=== PATIENT | male | born 1960 | race Caucasian/White ===

== ENCOUNTER 2020-03-11 06:08 | Outpatient (REF) | payer OTHER, SELFPAY ==
[2020-03-11 11:14] LABS: MANUAL DIFF FLAG NO
[2020-03-11 11:22] LABS: Basophils Percent Auto 0.6 % (0-2); Eosinophils Absolute Auto 0.1 X10*3/uL (0.0-0.4); Eosinophils Percent Auto 2.1 % (0-4); Hematocrit 42.2 % (42-52); Hemoglobin 14.4 g/dl (14.0-18.0); Imm Gran Abs Auto 0.02 X10*3/uL (0.00-0.03); Imm Gran Pct Auto 0.4 % (0.0-0.4); Lymphocytes Absolute Auto 1.2 X10*3/uL (1.2-4.9); Lymphocytes Percent Auto 23.3 % (20-40); Mean Corpuscular HGB Conc 34.1 g/dl (31.0-36.0); Mean Corpuscular Hemoglobin 31.4 pg (27.0-33.0); Mean Corpuscular Volume 91.9 fL (80-98); Mean Platelet Volume 9.7 fL (9.4-12.4); Monocytes Absolute Auto 0.7 X10*3/uL (0.1-1.2); Monocytes Percent Auto 13.5 % (2-11); Neutrophils Absolute Auto 3.2 X10*3/uL (2.0-8.3); Neutrophils Percent Auto 60.1 % (45-73); Platelet Count 282 X10*3/uL (160-400); Red Blood Count 4.59 X10*6/uL (4.60-5.80); Red Cell Distribution Width 13.1 % (11.0-16.0); White Blood Count 5.3 X10*3/uL (4.8-10.8)
[2020-03-11 11:43] LABS: Alanine Aminotransferase 20 U/L (0-40); Albumin Level 4.3 g/dL (3.5-5.0); Alkaline Phosphatase 57 U/L (39-117); Anion Gap 12 (12-20); Aspartate Amino Transferase 27 U/L (5-37); Bilirubin Total 0.4 mg/dL (0.0-1.0); Blood Urea Nitrogen 14 mg/dL (9-16); Calcium 9.6 mg/dL (8.4-10.2); Carbon Dioxide 30 mmol/L (22-29); Chloride 97 mmol/L (96-108); Cholesterol 178 mg/dL; Estimated Glomerular Filt Rate > 60; Glucose Fasting 106 mg/dL (60-99); HDL Cholesterol 69 mg/dL; LDL Cholesterol Calculated 98 mg/dl; Potassium 4.2 mmol/l (3.3-5.1); Sodium 135 mmol/L (135-145); Total Protein 6.8 g/dL (6.5-8.0); Triglycerides 58 mg/dL
[2020-03-11 11:49] LABS: Glucose Urine UA NEG (NEG); Leukocyte Esterase Urine NEG (NEG); Nitrite Urine NEG (NEG); PH 7.5 (5.0-8.0); Specific Gravity - Urine 1.015 (1.005-1.025); Urine Blood 1+ (NEG); Urine Ketones NEG (NEG); Urine Protein 1+ MG/DL (NEG-TRACE)
[2020-03-11 11:51] LABS: TSH reflex Free T4 0.81 mIU/mL (0.32-4.0)
[2020-03-11 11:53] LABS: Appearance Urine CLEAR; Color Urine YELLOW
[2020-03-11 12:16] LABS: WBC Urine 0 /HPF (0-4)
== END 2020-03-11 06:09 | disposition home or self-care (01) ==
LOC: HO.HMGCLDS 06:08
PROVIDERS: PCP Internal Medicine; Visit Provider Internal Medicine
DX: E78.00 Pure hypercholesterolemia, unspecified (principal); I10 Essential (primary) hypertension; I35.0 Nonrheumatic aortic (valve) stenosis; K21.9 Gastro-esophageal reflux disease without esophagitis; I48.91 Unspecified atrial fibrillation; E66.3 Overweight
CPT/HCPCS: 36415; 80053; 80061; 81001; 84443; 85025

== ENCOUNTER 2020-07-31 06:28 | Outpatient (REF) | payer OTHER, SELFPAY ==
[2020-07-31 11:08] LABS: MANUAL DIFF FLAG NO
[2020-07-31 11:28] LABS: Basophils Percent Auto 0.4 % (0-2); Eosinophils Absolute Auto 0.1 X10*3/uL (0.0-0.4); Eosinophils Percent Auto 1.6 % (0-4); Hematocrit 43.1 % (42-52); Hemoglobin 14.6 g/dl (14.0-18.0); Imm Gran Abs Auto 0.01 X10*3/uL (0.00-0.03); Imm Gran Pct Auto 0.2 % (0.0-0.4); Lymphocytes Absolute Auto 1.2 X10*3/uL (1.2-4.9); Lymphocytes Percent Auto 22.6 % (20-40); Mean Corpuscular HGB Conc 33.9 g/dl (31.0-36.0); Mean Corpuscular Hemoglobin 31.3 pg (27.0-33.0); Mean Corpuscular Volume 92.3 fL (80-98); Mean Platelet Volume 9.9 fL (9.4-12.4); Monocytes Absolute Auto 0.6 X10*3/uL (0.1-1.2); Monocytes Percent Auto 12.6 % (2-11); Neutrophils Absolute Auto 3.2 X10*3/uL (2.0-8.3); Neutrophils Percent Auto 62.6 % (45-73); Platelet Count 280 X10*3/uL (160-400); Red Blood Count 4.67 X10*6/uL (4.60-5.80); White Blood Count 5.1 X10*3/uL (4.8-10.8)
[2020-07-31 11:34] LABS: Glucose Urine UA NEG (NEG); Leukocyte Esterase Urine NEG (NEG); Nitrite Urine NEG (NEG); PH 7.5 (5.0-8.0); Urine Blood 1+ (NEG); Urine Ketones NEG (NEG); Urine Protein TRACE MG/DL (NEG-TRACE)
[2020-07-31 11:38] LABS: Appearance Urine CLEAR; Color Urine YELLOW
[2020-07-31 11:48] LABS: Alanine Aminotransferase 16 U/L (0-40); Albumin Level 4.4 g/dL (3.5-5.0); Alkaline Phosphatase 53 U/L (39-117); Anion Gap 11 (12-20); Aspartate Amino Transferase 23 U/L (5-37); Bilirubin Total 0.6 mg/dL (0.0-1.0); Blood Urea Nitrogen 14 mg/dL (9-16); Calcium 9.1 mg/dL (8.4-10.2); Carbon Dioxide 30 mmol/L (22-29); Chloride 94 mmol/L (96-108); Cholesterol 177 mg/dL; Estimated Glomerular Filt Rate > 60; Glucose Fasting 108 mg/dL (60-99); HDL Cholesterol 71 mg/dL; LDL Cholesterol Calculated 96 mg/dl; Potassium 4.8 mmol/L (3.3-5.1); Sodium 130 mmol/L (135-145); Total Protein 7.1 g/dL (6.5-8.0); Triglycerides 54 mg/dL
[2020-07-31 11:53] LABS: RBC Urine 0-2 /HPF (0); Squamous Epithelial Cell Urine 1+ /LPF; WBC Urine 0 /HPF (0-4)
[2020-07-31 12:43] LABS: Erythrocyte Sedimentation Rate 2 MM/HR (0-15)
== END 2020-07-31 06:29 | disposition home or self-care (01) ==
LOC: HO.HMGCLDS 06:28
PROVIDERS: PCP Internal Medicine; Visit Provider Internal Medicine Cardiovascular Disease
DX: I10 Essential (primary) hypertension (principal); K21.9 Gastro-esophageal reflux disease without esophagitis; E78.00 Pure hypercholesterolemia, unspecified; I48.91 Unspecified atrial fibrillation; M51.16 Intervertebral disc disorders with radiculopathy, lumbar region; E66.3 Overweight
CPT/HCPCS: 36415; 80053; 80061; 81001; 84443; 85025; 85652

== ENCOUNTER 2020-12-16 06:00 | Outpatient (REF) | payer OTHER, SELFPAY ==
[2020-12-16 11:04] LABS: MANUAL DIFF FLAG NO
[2020-12-16 11:19] LABS: Basophils Percent Auto 0.3 % (0-2); Eosinophils Absolute Auto 0.1 X10*3/uL (0.0-0.4); Eosinophils Percent Auto 1.7 % (0-4); Hematocrit 43.7 % (42-52); Hemoglobin 14.7 g/dl (14.0-18.0); Imm Gran Abs Auto 0.04 X10*3/uL (0.00-0.03); Imm Gran Pct Auto 0.6 % (0.0-0.4); Lymphocytes Absolute Auto 1.8 X10*3/uL (1.2-4.9); Lymphocytes Percent Auto 25.4 % (20-40); Mean Corpuscular HGB Conc 33.6 g/dl (31.0-36.0); Mean Corpuscular Hemoglobin 31.7 pg (27.0-33.0); Mean Corpuscular Volume 94.2 fL (80-98); Mean Platelet Volume 9.4 fL (9.4-12.4); Monocytes Absolute Auto 0.7 X10*3/uL (0.1-1.2); Monocytes Percent Auto 10.5 % (2-11); Neutrophils Absolute Auto 4.4 X10*3/uL (2.0-8.3); Neutrophils Percent Auto 61.5 % (45-73); Platelet Count 301 X10*3/uL (160-400); Red Blood Count 4.64 X10*6/uL (4.60-5.80); Red Cell Distribution Width 12.5 % (11.0-16.0); White Blood Count 7.1 X10*3/uL (4.8-10.8)
[2020-12-16 11:24] LABS: Estimated Average Glucose 108 mg/dL; Hemoglobin A1c % 5.4 %
[2020-12-16 11:38] LABS: Glucose Urine UA NEG (NEG); Leukocyte Esterase Urine NEG (NEG); Nitrite Urine NEG (NEG); Specific Gravity - Urine <= 1.005 (1.005-1.025); Urine Blood 2+ (NEG); Urine Ketones NEG (NEG); Urine Protein NEG (NEG-TRACE)
[2020-12-16 11:47] LABS: Alanine Aminotransferase 15 U/L (0-40); Albumin Level 4.4 g/dL (3.5-5.0); Alkaline Phosphatase 51 U/L (39-117); Anion Gap 11 (12-20); Aspartate Amino Transferase 22 U/L (5-37); Bilirubin Total 0.6 mg/dL (0.0-1.0); Blood Urea Nitrogen 17 mg/dL (9-16); Calcium 9.4 mg/dL (8.4-10.2); Carbon Dioxide 29 mmol/L (22-29); Chloride 97 mmol/L (96-108); Cholesterol 202 mg/dL; Estimated Glomerular Filt Rate > 60; Glucose Fasting 114 mg/dL (60-99); HDL Cholesterol 75 mg/dL; LDL Cholesterol Calculated 112 mg/dl; Potassium 4.4 mmol/L (3.3-5.1); Sodium 133 mmol/L (135-145); Triglycerides 79 mg/dL
[2020-12-16 12:09] LABS: Prostate Specific Antigen 2.62 ng/mL (<0.05-4.0)
[2020-12-16 12:10] LABS: TSH reflex Free T4 0.72 uIU/mL (0.32-4.0)
[2020-12-16 12:16] LABS: Appearance Urine HAZY; Color Urine YELLOW
[2020-12-16 13:04] LABS: WBC Urine 0 /HPF (0-4)
== END 2020-12-16 06:01 | disposition home or self-care (01) ==
LOC: HO.HMGCLDS 06:00
PROVIDERS: PCP Internal Medicine; Visit Provider Urology
DX: Z12.5 Encounter for screening for malignant neoplasm of prostate (principal); R97.20 Elevated prostate specific antigen [PSA]; E78.00 Pure hypercholesterolemia, unspecified; I10 Essential (primary) hypertension; K21.9 Gastro-esophageal reflux disease without esophagitis; R73.01 Impaired fasting glucose
CPT/HCPCS: 36415; 80053; 80061; 81001; 81003; 83036; 84153; 84443; 85025

== ENCOUNTER 2021-05-12 10:18 | Outpatient (REF) | payer OTHER, SELFPAY ==
[2021-05-12 11:50] LABS: Anion Gap 11 (12-20); Blood Urea Nitrogen 16 mg/dL (9-16); Calcium 10.1 mg/dL (8.4-10.2); Carbon Dioxide 30 mmol/L (22-29); Chloride 96 mmol/L (96-108); Estimated Glomerular Filt Rate > 60; Glucose Random 99 mg/dL (60-115); Potassium 4.7 mmol/L (3.3-5.1); Sodium 132 mmol/L (135-145)
[2021-05-12 11:54] LABS: INTERNATIONAL NORM RATIO 1.3 (0.9-1.1)
== END 2021-05-12 10:19 | disposition home or self-care (01) ==
LOC: HO.HMGCLDS 10:18
PROVIDERS: Absent Provider Internal Medicine; PCP Internal Medicine; Visit Provider Internal Medicine Cardiovascular Disease
DX: I10 Essential (primary) hypertension (principal); I35.0 Nonrheumatic aortic (valve) stenosis
CPT/HCPCS: 36415; 80048; 85610

== ENCOUNTER 2021-07-11 09:32 | Outpatient (REF) | payer OTHER, SELFPAY ==
[2021-07-11 11:36] LABS: MANUAL DIFF FLAG NO
[2021-07-11 11:42] LABS: Appearance Urine CLEAR; Color Urine YELLOW; Glucose Urine UA NEG (NEG); Leukocyte Esterase Urine NEG (NEG); Nitrite Urine NEG (NEG); UACC Culture Trigger NO; Urine Blood 2+ (NEG); Urine Ketones NEG (NEG); Urine Protein TRACE MG/DL (NEG-TRACE)
[2021-07-11 11:48] LABS: Basophils Percent Auto 0.2 % (0-2); Eosinophils Absolute Auto 0.1 X10*3/uL (0.0-0.4); Eosinophils Percent Auto 1.6 % (0-4); Hematocrit 43.3 % (42.0-52.0); Hemoglobin 14.8 g/dl (14.0-18.0); Imm Gran Abs Auto 0.01 X10*3/uL (0.00-0.03); Imm Gran Pct Auto 0.2 % (0.0-0.4); Lymphocytes Absolute Auto 1.4 X10*3/uL (1.2-4.9); Lymphocytes Percent Auto 28.1 % (20-40); Mean Corpuscular HGB Conc 34.2 g/dl (31.0-36.0); Mean Corpuscular Hemoglobin 31.8 pg (27.0-33.0); Mean Corpuscular Volume 92.9 fL (80.0-98.0); Mean Platelet Volume 10.1 fL (9.4-12.4); Monocytes Absolute Auto 0.7 X10*3/uL (0.1-1.2); Monocytes Percent Auto 13.2 % (2-11); Neutrophils Absolute Auto 2.9 x10*3/uL (2.0-8.3); Neutrophils Percent Auto 56.7 % (45-73); Platelet Count 272 X10*3/uL (160-400); Red Blood Count 4.66 X10*6/uL (4.60-5.80); Red Cell Distribution Width 11.8 % (11.0-16.0); White Blood Count 5.1 X10*3/uL (4.8-10.8)
[2021-07-11 12:05] LABS: Alanine Aminotransferase 13 U/L (0-40); Albumin Level 4.4 g/dL (3.5-5.0); Alkaline Phosphatase 52 U/L (39-117); Anion Gap 11 (12-20); Aspartate Amino Transferase 22 U/L (5-37); Bilirubin Total 0.6 mg/dL (0.0-1.0); Blood Urea Nitrogen 17 mg/dL (9-16); Carbon Dioxide 31 mmol/L (22-29); Chloride 97 mmol/L (96-108); Cholesterol 189 mg/dL; Estimated Glomerular Filt Rate > 60; Glucose Fasting 94 mg/dL (60-99); HDL Cholesterol 68 mg/dL; LDL Cholesterol Calculated 111 mg/dl; Potassium 5.3 mmol/L (3.3-5.1); Sodium 134 mmol/L (135-145); Triglycerides 52 mg/dL
[2021-07-11 12:06] LABS: WBC Urine 0-2 /HPF (0-4)
[2021-07-11 12:31] LABS: TSH reflex Free T4 0.86 uIU/mL (0.32-4.0); Vitamin D 25-OH Total 39.3 ng/mL (>30)
[2021-07-11 12:35] LABS: Valproate 72.1 mcg/mL (50.0-100.0)
== END 2021-07-11 09:33 | disposition home or self-care (01) ==
LOC: HO.HMGCLDS 09:32
PROVIDERS: PCP Internal Medicine; Visit Provider Psychiatry & Neurology Psychiatry
DX: F31.9 Bipolar disorder, unspecified (principal); E78.00 Pure hypercholesterolemia, unspecified; E55.9 Vitamin D deficiency, unspecified; I10 Essential (primary) hypertension; Z79.899 Other long term (current) drug therapy
CPT/HCPCS: 36415; 80053; 80061; 80164; 81001; 82306; 84443; 85025

== ENCOUNTER 2022-02-13 09:26 | Outpatient (REF) | payer OTHER, SELFPAY ==
[2022-02-13 11:14] LABS: MANUAL DIFF FLAG NO
[2022-02-13 11:24] LABS: Basophils Percent Auto 0.1 % (0-2); Eosinophils Absolute Auto 0.1 X10*3/uL (0.0-0.4); Eosinophils Percent Auto 0.7 % (0-4); Hematocrit 43.5 % (42.0-52.0); Hemoglobin 14.9 g/dl (14.0-18.0); Imm Gran Abs Auto 0.04 X10*3/uL (0.00-0.03); Imm Gran Pct Auto 0.6 % (0.0-0.4); Lymphocytes Absolute Auto 1.5 X10*3/uL (1.2-4.9); Lymphocytes Percent Auto 22.3 % (20-40); Mean Corpuscular HGB Conc 34.3 g/dl (31.0-36.0); Mean Corpuscular Hemoglobin 31.6 pg (27.0-33.0); Mean Corpuscular Volume 92.2 fL (80.0-98.0); Mean Platelet Volume 9.8 fL (9.4-12.4); Monocytes Absolute Auto 0.8 X10*3/uL (0.1-1.2); Monocytes Percent Auto 11.8 % (2-11); Neutrophils Absolute Auto 4.4 x10*3/uL (2.0-8.3); Neutrophils Percent Auto 64.5 % (45-73); Platelet Count 264 X10*3/uL (160-400); Red Blood Count 4.72 X10*6/uL (4.60-5.80); Red Cell Distribution Width 12.3 % (11.0-16.0); White Blood Count 6.9 X10*3/uL (4.8-10.8)
[2022-02-13 11:27] LABS: Appearance Urine Clear; Color Urine Yellow; Glucose Urine UA Negative (Negative); Leukocyte Esterase Urine Negative (Negative); Nitrite Urine Negative (Negative); UMIC TRIGGER UACC YES; Urine Blood Moderate (2+) (Negative); Urine Ketones Negative (Negative); Urine Protein 30 (1+) mg/dL (Neg-Trace)
[2022-02-13 11:28] LABS: Estimated Average Glucose 111 mg/dL; Hemoglobin A1c % 5.5 %
[2022-02-13 11:34] LABS: Bacteria Urine None Seen (None Seen); Hyaline Casts Urine 0-2 /LPF (0-2); Squamous Epithelial Cell Urine 0-2 /HPF (0-2); WBC Urine 0-5 /HPF (0-5)
[2022-02-13 11:47] LABS: Alanine Aminotransferase 19 U/L (0-40); Albumin Level 4.4 g/dL (3.5-5.0); Alkaline Phosphatase 46 U/L (39-117); Anion Gap 16 (12-20); Aspartate Amino Transferase 24 U/L (5-37); Bilirubin Total 0.6 mg/dL (0.0-1.0); Blood Urea Nitrogen 17 mg/dL (9-16); Calcium 9.8 mg/dL (8.4-10.2); Carbon Dioxide 27 mmol/L (22-29); Chloride 93 mmol/L (96-108); Cholesterol 156 mg/dL; Estimated Glomerular Filt Rate > 60; Glucose Fasting 107 mg/dL (60-99); HDL Cholesterol 71 mg/dL; LDL Cholesterol Calculated 77 mg/dl; Potassium 4.8 mmol/L (3.3-5.1); Sodium 131 mmol/L (135-145); Triglycerides 42 mg/dL
[2022-02-13 11:55] LABS: Vitamin D 25-OH Total 41.5 ng/mL (>30)
== END 2022-02-13 09:27 | disposition home or self-care (01) ==
LOC: HO.HMGCLDS 09:26
PROVIDERS: Absent Provider Internal Medicine Cardiovascular Disease; PCP Internal Medicine; Referring Provider Urology; Visit Provider Internal Medicine
DX: E78.00 Pure hypercholesterolemia, unspecified (principal); E55.9 Vitamin D deficiency, unspecified; I10 Essential (primary) hypertension; R73.01 Impaired fasting glucose
CPT/HCPCS: 36415; 80053; 80061; 81001; 82306; 83036; 84443; 85025

== ENCOUNTER 2022-07-20 06:07 | Outpatient (REF) | payer OTHER, SELFPAY ==
[2022-07-20 12:28] LABS: Alanine Aminotransferase 23 U/L (0-40); Albumin Level 4.3 g/dL (3.5-5.0); Alkaline Phosphatase 44 U/L (39-117); Anion Gap 11 (12-20); Aspartate Amino Transferase 44 U/L (5-37); Bilirubin Total 0.5 mg/dL (0.0-1.0); Blood Urea Nitrogen 17 mg/dL (9-16); Calcium 9.3 mg/dL (8.4-10.2); Carbon Dioxide 29 mmol/L (22-29); Chloride 96 mmol/L (96-108); Cholesterol 158 mg/dL; Estimated Glomerular Filt Rate > 60; Glucose Fasting 115 mg/dL (60-99); HDL Cholesterol 73 mg/dL; LDL Cholesterol Calculated 77 mg/dl; Potassium 4.5 mmol/L (3.3-5.1); Sodium 131 mmol/L (135-145); Total Protein 6.6 g/dL (6.5-8.0); Triglycerides 43 mg/dL
== END 2022-07-20 06:08 | disposition home or self-care (01) ==
LOC: HO.HMGCLDS 06:07
PROVIDERS: Absent Provider Psychiatry & Neurology Psychiatry; PCP Internal Medicine; Visit Provider Internal Medicine
DX: E78.00 Pure hypercholesterolemia, unspecified (principal)
CPT/HCPCS: 36415; 80053; 80061

== ENCOUNTER 2022-09-29 14:25 | Outpatient (AMB) | payer OTHER, SELFPAY ==
[2022-09-29 14:26] VITALS: BP 122/78; PULSE 82; O2SAT 98; BMI 25.9
--- NOTE | 2022-09-29 14:26 | A.OFFPC_ITS ---
Vital Signs 09/29/22 14:26 Height 5 ft 9 in Weight 175 lb 2 oz BMI 25.9 BP 122/78 Blood Pressure Location Lt brachial Position Sitting Pulse 82 Pulse Source Pulse Oximeter Pulse Oximetry (%) 98 Oxygen Delivery Method Room Air Intake Visit Reasons: 6mth f/u Intake Note: Patient is here for a six months follow up. 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 Accompanied by: Self / Same As Patient Allergies bee pollen [bee stings] Allergy (Verified 04/14/23 14:34) Unknown Medication List - Last Reconciled 09/29/22 by Jay Cavazos MD acetaminophen-codeine 300-30 mg 1 tab PO TID PRN 7 days apixaban (Eliquis) 5 mg PO BID 90 days aspirin 81 mg PO DAILY atorvastatin 40 mg PO DAILY diltiazem HCl ER 240 mg PO DAILY divalproex ER (Depakote ER) 500 mg PO BID finasteride 5 mg PO DAILY gabapentin 400 mg PO TID lisinopril 40 mg PO DAILY olanzapine 10 mg PO BEDTIME rivaroxaban (Xarelto) 20 mg PO DAILY 30 days Tobacco use date assessed: 09/29/22 Fall risk assessment: No Falls in past year HPI 6mth f/u HPI Details Patient comes in today for his follow up visit States that he has been experiencing increased pain over his left hip for a while now Had some x-rays done at [facility] recently - is not sure what his x-rays revealed but he would like to request for a referral to see orthopedics at [facility] for his hip pain since he is already being seen there for his low back pain He has also been experiencing some left shoulder pain lately Does not recall any recent injury or trauma to his shoulder or hip States that he feels okay otherwise He denies any headaches or dizziness Denies any chest pains, no shortness of breath No nausea/ vomiting, no abdominal pain No change in bowel habits noted Did not get his preordered labs done recently but states that he had some follow up labs done back in late June 2022 - to discuss his results FOR[facility]LY [facility], [facility] Medical History Lower back pain Anxiety Depression Impaired fasting glucose Overweight (BMI 25.0-29.9) Bipolar disorder GERD (gastroesophageal reflux disease) Degenerative disc disease, cervical Lumbar disc herniation with radiculopathy Pure hypercholesterolemia Atrial fibrillation Benign essential hypertension Severe aortic stenosis Surgical History Hx of hand surgery Hx of colonoscopy History of pacemaker H/O aortic valve replacement Family History Father Brain cancer Mother Cancer Brother Colon cancer Other Mental health problem Substance abuse Housing: House Alcohol intake: current Alcohol intake frequency: a few times a week Alcohol type: beer Patient Tobacco Use Status: Former Tobacco user e-Cigarette/Vaping Use: Never Used Second Hand Smoke Exposure: No Substance Use Type: Marijuana service: No Current occupational status: employed 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 1. Little interest or pleasure in doing things: not at all 2. Feeling down, depressed, or hopeless: not at all 3. Trouble falling or staying asleep, or sleeping too much: not at all 4. Feeling tired or having little energy: not at all 5. Poor appetite or overeating: not at all 6. Feeling bad about yourself - or that you are a failure or have let yourself or your family down: not at all 7. Trouble concentrating on things, such as reading the newspaper or watching television: not at all 8. Moving or speaking so slowly that other people could have noticed. Or the opposite - being so fidgety or restless that you have been moving around a lot more than usual: not at all 9. Thoughts that you would be better off or of hurting yourself in some way: not at all Total score: 0 Depression Screening Interpretation: Negative (is on Rx for his bipolar disorder) 44841 - PHQ-9 Billing: Yes Source: Developed by Drs. Cecilio Fritz, Yakelin Cerrato, Jared Kruger and colleagues, with an educational juan from [employer]. Thrive Questionnaire Date Thrive assessed: 09/29/22 I am a: Patient What is your living situation today?: I have a steady place to live Within the past 12 months, did the food you bought not last and you didn't have the money to get more?: Never true Within the past 12 months, did you worry whether your food would run out before you got money to buy more?: Never true Currently or been in a relationship where the following occur: no concerns reported AUDIT C Alcohol Use Questionnaire (AUDIT-C) 1. How often do you have a drink containing alcohol?: 2-3 times a week 2. How many drinks containing alcohol do you have on a typical day when you are drinking?: 1 or 2 3. How often do you have six or more drinks on one occasion?: Never Total Score: 3 Score Reviewed/Action Taken: Yes ELIZABET-7 AMB Questionnaire ELIZABET-7 Date ELIZABET - 7 assessed: 09/29/22 Feeling nervous, anxious, or on edge: 0 = Not at all Not being able to stop or control worryin = Not at all Worrying too much about different things: 0 = Not at all Trouble relaxin = Not at all Being so restless that it is hard to sit still: 0 = Not at all Becoming easily annoyed or irritable: 0 = Not at all Feeling afraid as if something awful might happen: 0 = Not at all Total ELIZABET-7 score (0-4 normal; 5-9 mild; 10-14 moderate; 15-21 severe): 0 Source: Developed by Drs. Cecilio Fritz, Yakelin Cerrato, Jared Kruger and colleagues, with an educational juan from [employer]. Review of Systems Const Denies chills, Reports daytime sleepiness (at times), Reports fatigue, Denies fever(s) and Denies headache(s) ENT Denies dysphagia, Denies dizziness, Denies otalgia, Denies headache(s), Denies neck pain, Denies odynophagia and Denies sore throat Card Denies chest pain, Denies palpitations and Denies dyspnea Resp Denies chest congestion, Denies cough and Denies dyspnea GI Denies abdominal pain, Denies constipation, Denies dysphagia, Denies heartburn, Denies diarrhea, Denies nausea, Denies odynophagia and Denies vomiting Denies dysuria, Denies nocturia and Denies urinary frequency Musc Reports back pain (over the lower back - chronic), Reports arthralgias (left shoulder; over the left hip, especially when walking), Denies neck pain, Denies numbness and Denies tingling Skin/Breast Denies rash Neuro Denies dizziness, Denies headache(s), Denies memory loss, Denies numbness and Denies tingling Psych Denies anxiety, Denies depression and Denies memory loss Endo Reports fatigue and Denies palpitations Physical exam (Primary Care) Vital Signs: Last Vital Signs Pulse 82 09/29/22 14:26 BP 122/78 09/29/22 14:26 Pulse Ox 98 09/29/22 14:26 Oxygen Delivery Method Room Air 09/29/22 14:26 BMI result Body Mass Index 25.9 Tobacco/Smoking Status: Tobacco use Status Tobacco use date assessed 09/29/22 09/29/22 14:32 Patient Tobacco Use Status Former Tobacco user 09/29/22 14:32 e-Cigarette/Vaping Use Never Used 09/29/22 14:32 PHQ-9: PHQ-9 Score PHQ-9: Total score 0 09/29/22 15:06 Depression Screening Interpretation: Negative (is on Rx for his bipolar disorder) Thrive Assessment: Date of Thrive Assessment Date Thrive assessed 09/29/22 09/29/22 14:32 Currently or been in a relationship where the following occur: no concerns reported Const General: no acute distress and alert HENMT Ears: TM's normal bilaterally and EAC's normal Throat: Yes posterior oropharynx normal and Yes tonsils normal (no TP congestion noted) Neck Neck: Yes no lymphadenopathy and Yes supple Thyroid: Thyroid normal Resp Auscultation: clear to auscultation bilaterally, no rales and no wheezes Cardio Rate: regular rate Rhythm: regular rhythm Heart sounds: no murmurs GI Palpation (GI): Soft to palpation and nontender Auscultation: normal bowel sounds General: Yes no CVA tenderness Back/Spine/Pelvis Back: no CVA tenderness Thoracic/Lumbar Spine: lumbar spinal tenderness (chronic) Skin Rashes: no rashes Extrem General: Yes no clubbing, cyanosis or edema Left upper extremity: shoulder/upper arm Details: tenderness Location: of the A- C joint and normal ROM Left lower extremity: hip/thigh Details: tenderness Location: of the hip Assessment and Plan Assessment & Plan (1) Pure hypercholesterolemia: Code(s): E78.00 - Pure hypercholesterolemia, unspecified Plan: Was not able to get his follow up labs done recently although he reports having some labs done back in June 2022 Reinforced low cholesterol diet Continue Atorvastatin 40 mg QD Will recheck his labs and fasting lipids in 6 months for follow-up (2) Benign essential hypertension: Code(s): I10 - Essential (primary) hypertension Plan: Reinforced low-sodium diet - goal is systolic BP of 120 to 130 mm or less Continue Lisinopril 40 mg QD Patient is reminded to continue monitoring his blood pressure regularly (3) Atrial fibrillation: Comment: S/P STEPHANIE cardioversion in June 2019 and presently has a defibrillator in place on his left upper chest wall Code(s): I48.91 - Unspecified atrial fibrillation Qualifiers: Atrial fibrillation type: unspecified Qualified Code(s): I48.91 - Unspecified atrial fibrillation Plan: Is currently still in sinus rhythm Continue Diltiazem ER 240 mg once a day; continue Eliquis 5 mg BID for thromboembolism prophylaxis Follow-up with cardiology as scheduled (4) Severe aortic stenosis: Comment: S/P AVR with bioprosthetic valve in June 2019 Code(s): I35.0 - Nonrheumatic aortic (valve) stenosis Plan: S/P AVR in 06/2019 with no acute issues since; did not complete his cardiac rehab a couple of years ago due to the COVID-19 pandemic but states that he went back to work shortly afterwards with no problems and he has been back to his baseline level of functioning for the past couple of years now Follow-up with cardiac surgeon as scheduled or as needed (5) S/P AVR (aortic valve replacement): Code(s): Z95.2 - Presence of prosthetic heart valve Plan: S/P AVR on 07/03/2019 at [facility] - is currently doing well (6) Impaired fasting glucose: Code(s): R73.01 - Impaired fasting glucose Plan: FBS was slightly elevated on his previous labs but HgbA1c was normal at 5.5% back then Reinforced low calorie diet/exercise as tolerated (7) Fatigue: Code(s): R53.83 - Other fatigue Qualifiers: Fatigue type: unspecified Qualified Code(s): R53.83 - Other fatigue Plan: He was referred back to Sleep Medicine for further evaluation and management but he has not been seen yet He has been advised that his increased fatigue may be a symptom of Obstructive Sleep Apnea and he should try to get a sleep study done to rule it in or out (8) Lumbar disc herniation with radiculopathy: Code(s): M51.16 - Intervertebral disc disorders with radiculopathy, lumbar region Plan: Reinforced activity and weight lifting restrictions to avoid aggravating his low back pain Has been getting injections into his lower back at [facility] with (+) significant improvement of his low back pain Continue OTC Tylenol as needed for pain and Tylenol # 3 only as needed for severe pain (9) Degenerative disc disease, cervical: Code(s): M50.30 - Other cervical disc degeneration, unspecified cervical region Plan: States that his neck pain remains adequately controlled on his current Rx (10) Left hip pain: Code(s): M25.552 - Pain in left hip Plan: Left hip x-rays done back in 2013 revealed (+) mild OA changes and possible calcific tendinitis at the greater trochanter Repeat left hip x-rays done a few months ago revealed similar findings Per request, will refer him to orthopedics for further evaluation and management (11) GERD (gastroesophageal reflux disease): Code(s): K21.9 - Gastro-esophageal reflux disease without esophagitis Qualifiers: Esophagitis presence: without esophagitis Qualified Code(s): K21.9 - Gastro-esophageal reflux disease without esophagitis Plan: Dietary restrictions reinforced Takes OTC Tums or OTC Prilosec as needed when his symptoms flare up (12) Bipolar disorder: Code(s): F31.9 - Bipolar disorder, unspecified Qualifiers: Active/Remission status: currently active Current bipolar episode type: mixed Current episode severity: unspecified Qualified Code(s): F31.60 - Bipolar disorder, current episode mixed, unspecified Plan: Continue Zyprexa 10 mg daily at bedtime and Depakote ER 500 mg twice a day Follow up with psychiatry as scheduled (13) Overweight (BMI 25.0-29.9): Code(s): E66.3 - Overweight Plan: Reinforced diet/exercise as tolerated/lose weight Plan Follow up in 6 months Orders: Orders Comprehensive [facility]. Panel Fast 6 Months E78.00 - Pure hypercholesterolemia, unspecified TSH reflex Free T4 6 Months E78.00 - Pure hypercholesterolemia, unspecified UA CC w/rflx Micro + Cult 6 Months R30.0 - Dysuria Vitamin D 25-OH Total 6 Months E55.9 - Vitamin D deficiency, unspecified Vitamin B12 and Folate 6 Months E53.8 - Deficiency of other specified B group vitamins Complete Blood Count Auto Diff 6 Months I10 - Essential (primary) hypertension Lipid Panel 6 Months E78.00 - Pure hypercholesterolemia, unspecified Referrals Orthopedics Referral M25.552 - Pain in left hip Coding Level of Care Code Est Pt Level 4 (52035) Diagnoses Pure hypercholesterolemia E78.00 Benign essential hypertension I10 Atrial fibrillation, unspecified type I48.91 Atrial fibrillation type: unspecified Severe aortic stenosis I35.0 S/P AVR (aortic valve replacement) Z95.2 Impaired fasting glucose R73.01 Fatigue, unspecified type R53.83 Fatigue type: unspecified Lumbar disc herniation with radiculopathy M51.16 Degenerative disc disease, cervical M50.30 Left hip pain M25.552 Gastroesophageal reflux disease without esophagitis K21.9 Esophagitis presence: without esophagitis Bipolar affective disorder, current episode mixed, current episode severity unspecified F31.60 Active/Remission status: currently active Current bipolar episode type: mixed Current episode severity: unspecified Overweight (BMI 25.0-29.9) E66.3
== END 2022-09-29 15:19 | disposition home or self-care (01) ==
LOC: HO.HMGH 14:25
PROVIDERS: PCP Internal Medicine; Visit Provider Internal Medicine
DX: E78.00 Pure hypercholesterolemia, unspecified (principal); I10 Essential (primary) hypertension; I48.91 Unspecified atrial fibrillation; F31.60 Bipolar disorder, current episode mixed, unspecified; I35.0 Nonrheumatic aortic (valve) stenosis; Z95.2 Presence of prosthetic heart valve; R73.01 Impaired fasting glucose; R53.83 Other fatigue; M51.16 Intervertebral disc disorders with radiculopathy, lumbar region; M50.30 Other cervical disc degeneration, unspecified cervical region; M25.552 Pain in left hip; K21.9 Gastro-esophageal reflux disease without esophagitis
CPT/HCPCS: 99214

== ENCOUNTER 2022-11-21 06:38 | Outpatient (REF) | payer OTHER, SELFPAY ==
[2022-11-21 11:43] LABS: Alanine Aminotransferase 17 U/L (0-40); Albumin Level 4.2 g/dL (3.5-5.0); Alkaline Phosphatase 47 U/L (39-117); Anion Gap 14 (12-20); Aspartate Amino Transferase 26 U/L (5-37); Bilirubin Total 0.7 mg/dL (0.0-1.0); Blood Urea Nitrogen 16 mg/dL (9-16); Calcium 9.5 mg/dL (8.4-10.2); Carbon Dioxide 26 mmol/L (22-29); Chloride 96 mmol/L (96-108); Cholesterol 147 mg/dL; Estimated Glomerular Filt Rate > 60; Glucose Fasting 104 mg/dL (60-99); HDL Cholesterol 71 mg/dL; LDL Cholesterol Calculated 69 mg/dl; Potassium 4.4 mmol/L (3.3-5.1); Sodium 132 mmol/L (135-145); Total Protein 6.8 g/dL (6.5-8.0); Triglycerides 39 mg/dL
[2022-11-21 11:59] LABS: TSH reflex Free T4 0.88 uIU/mL (0.32-4.0); Vitamin D 25-OH Total 42.7 ng/mL (>30)
== END 2022-11-21 06:39 | disposition home or self-care (01) ==
LOC: HO.HMGCLDS 06:38
PROVIDERS: PCP Internal Medicine; Visit Provider Internal Medicine
DX: Z00.00 Encounter for general adult medical examination without abnormal findings (principal); E78.00 Pure hypercholesterolemia, unspecified; I10 Essential (primary) hypertension; E55.9 Vitamin D deficiency, unspecified; F31.9 Bipolar disorder, unspecified; R30.0 Dysuria; Z12.5 Encounter for screening for malignant neoplasm of prostate
CPT/HCPCS: 36415; 80053; 80061; 80164; 81001; 82306; 84153; 84443; 85025

== ENCOUNTER 2022-12-30 07:26 | Day surgery (SDC) | payer OTHER, SELFPAY ==
--- NOTE | 2022-12-29 10:19 | P.CONAN_ITS ---
Documented by User: Mely Deras NP 12/29/22 10:33 HPI - Anesthesia Eval Consult details Narrative: 62yo M for Colonoscopy Cardiac optimized Eliquis for afib s/p AVR 2019 without cardiac issues since, also bilat pulmo vein isolation and LA appendage exclusion Pacer in situ PMFSH Active Problems Active Problems: All Active Problems (Updated 12/29/22 @ 07:42 by Christine Fang RN) Left hip pain (Acute) Daytime somnolence (Acute) Fatigue (Acute) Colon cancer screening (Acute) Annual physical exam (Acute) Pain, dental (Acute) Impaired fasting glucose (Acute) Overweight (BMI 25.0-29.9) (Acute) Bipolar disorder (Acute) GERD (gastroesophageal reflux disease) (Acute) Degenerative disc disease, cervical (Acute) Lumbar disc herniation with radiculopathy (Acute) Pure hypercholesterolemia (Acute) Atrial fibrillation (Acute) Benign essential hypertension (Acute) S/P AVR (aortic valve replacement) (Acute) Severe aortic stenosis (Acute) Past Medical History Medical History Anxiety Atrial fibrillation Benign essential hypertension Bipolar disorder Degenerative disc disease, cervical Depression GERD (gastroesophageal reflux disease) Impaired fasting glucose Lower back pain Lumbar disc herniation with radiculopathy Overweight (BMI 25.0-29.9) Pure hypercholesterolemia Severe aortic stenosis Family History Family History Father Brain cancer Mother Cancer Brother Colon cancer Other Mental health problem Substance abuse Surgical History Surgical History (Updated 12/30/22 @ 09:12 by Jess Dominguez MD) H/O aortic valve replacement History of pacemaker Hx of colonoscopy Hx of hand surgery Social History Social History Housing: House Alcohol intake: current Alcohol intake frequency: a few times a week Alcohol type: beer Patient Tobacco Use Status: Former Tobacco user e-Cigarette/Vaping Use: Never Used Second Hand Smoke Exposure: No Use of substances other than those prescribed or required for medical reasons: Yes Substance Use Type: Marijuana Substance Use Frequency: Daily Are you DNR?: No Advance Directives: No Advance Directives Information Provided: Yes Advance Directives on File: No service: No Current occupational status: employed 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 Cognitive needs: No Hearing needs: No Vision needs: No Meds Allergies Allergy/AdvReac Type Severity Reaction Status Date / Time bee pollen [bee stings] Allergy Unknown Verified 12/29/22 07:48 Home Medications Medication Instructions Recorded Confirmed Last Taken Type finasteride 5 mg tablet 5 mg PO DAILY 03/20/20 09/29/22 Unknown History olanzapine 10 mg tablet 10 mg PO BEDTIME 03/20/20 09/29/22 Unknown History divalproex 500 mg tablet,extended 500 mg PO BID 03/24/20 09/29/22 Unknown History release 24 hr (Depakote ER) aspirin 81 mg tablet,delayed 81 mg PO DAILY 07/23/20 09/29/22 Unknown History release diltiazem HCl 240 mg capsule,24 240 mg PO DAILY 03/25/21 09/29/22 Unknown History hr,extended release lisinopril 40 mg tablet 40 mg PO DAILY 07/29/21 09/29/22 Unknown History atorvastatin 40 mg tablet 40 mg PO DAILY 02/09/22 09/29/22 Unknown History apixaban 5 mg tablet (Eliquis) 5 mg PO BID 12/29/22 12/29/22 Unknown History docusate sodium 100 mg capsule 100 mg PO DAILY PRN Constipation 12/29/22 12/29/22 Unknown History (Colace) Exam Exam Date and Time: December 29, 2022 1019 Pertinent Lab Results Pertinent Lab Results: Laboratory Tests 11/21/22 11/21/22 07:01 07:01 WBC 6.4 Hgb 14.9 Hct 43.6 Plt Count 268 Sodium 132 L Potassium 4.4 Chloride 96 Carbon Dioxide 26 BUN 16 Creatinine 0.92 Narrative Narrative: Per 09/2022 cardiac clearance note: ECHO 05/2022: nml LVEF , mild LVH, grade 1 DD, nmly functioning aortic bioprosthetic tissue valve, no evidence of pulmo htn, ascending aortic aneurysm 4.4 x 4.3 cm (will follow with CT) Pacer interr: 11 years battery life, atrial paced 44%, V paced <1%, no episodes of afib Assessment and Plan Assessment Anesthesia Assessment: Chart Reviewed Documented by User: Jess Dominguez MD 12/30/22 09:21 HPI - Anesthesia Eval Consult details Narrative: 62yo M for Colonoscopy Cardiac optimized Eliquis for afib. Last dose 3 days ago. Baby aspirin- last dose ? yesterday s/p AVR 2020 without cardiac issues since, also bilat pulmo vein isolation and LA appendage exclusion Pacer in situ PMFSH Active Problems Active Problems: All Active Problems (Updated 12/30/22 @ 08:40 by Jess Dominguez MD) Left hip pain (Acute) Daytime somnolence (Acute) Fatigue (Acute) Colon cancer screening (Acute) Annual physical exam (Acute) Pain, dental (Acute) Impaired fasting glucose (Acute) Overweight (BMI 25.0-29.9) (Acute) Bipolar disorder (Acute) GERD (gastroesophageal reflux disease) (Acute) Degenerative disc disease, cervical (Acute) Lumbar disc herniation with radiculopathy (Acute) Pure hypercholesterolemia (Acute) Atrial fibrillation (Acute) Benign essential hypertension (Acute) S/P AVR (aortic valve replacement) with Bioprosthetic valve for severe Aortic stenosis Snores but never tested for KAYLA Hard of hearing. A little vague with medical history Pacemaker 2020 for SSS H/o atrial fibrillation/flutter with attempted cardioversion H/o ETOH abuse AAA 4.4x4.3 cm. Larger than previuous- being followed by Cardiothoracic surgery with CT scans Past Medical History Medical History Anxiety Atrial fibrillation Benign essential hypertension Bipolar disorder Degenerative disc disease, cervical Depression GERD (gastroesophageal reflux disease) Impaired fasting glucose Lower back pain Lumbar disc herniation with radiculopathy Overweight (BMI 25.0-29.9) Pure hypercholesterolemia Severe aortic stenosis Family History Family History Father Brain cancer Mother Cancer Brother Colon cancer Other Mental health problem Substance abuse Family history of problems with anesthesia: No Surgical History Surgical History (Updated 12/30/22 @ 09:12 by Jess Dominguez MD) H/O aortic valve replacement History of pacemaker Hx of colonoscopy Hx of hand surgery History of Problems with Anesthesia: No Social History Social History Housing: House Alcohol intake: current Alcohol intake frequency: a few times a week Alcohol type: beer Patient Tobacco Use Status: Former Tobacco user e-Cigarette/Vaping Use: Never Used Second Hand Smoke Exposure: No Use of substances other than those prescribed or required for medical reasons: Yes Substance Use Type: Marijuana Substance Use Frequency: Daily Are you DNR?: No Advance Directives: No Advance Directives Information Provided: Yes Advance Directives on File: No service: No Current occupational status: employed 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 Cognitive needs: No Hearing needs: No Vision needs: No Meds Allergies Allergy/AdvReac Type Severity Reaction Status Date / Time bee pollen [bee stings] Allergy Unknown Verified 12/29/22 07:48 Home Medications Medication Instructions Recorded Confirmed Last Taken Type finasteride 5 mg tablet 5 mg PO DAILY 03/20/20 09/29/22 Unknown History olanzapine 10 mg tablet 10 mg PO BEDTIME 03/20/20 09/29/22 Unknown History divalproex 500 mg tablet,extended 500 mg PO BID 03/24/20 09/29/22 Unknown History release 24 hr (Depakote ER) aspirin 81 mg tablet,delayed 81 mg PO DAILY 07/23/20 09/29/22 Unknown History release diltiazem HCl 240 mg capsule,24 240 mg PO DAILY 03/25/21 09/29/22 Unknown His tory hr,extended release lisinopril 40 mg tablet 40 mg PO DAILY 07/29/21 09/29/22 Unknown History atorvastatin 40 mg tablet 40 mg PO DAILY 02/09/22 09/29/22 Unknown History apixaban 5 mg tablet (Eliquis) 5 mg PO BID 12/29/22 12/29/22 Unknown History docusate sodium 100 mg capsule 100 mg PO DAILY PRN Constipation 12/29/22 12/29/22 Unknown History (Colace) Exam Height,Weight and Vital Signs: Height 5 ft 7.25 in Weight 79.832 kg Vital Signs Temp Pulse Resp BP Pulse Ox O2 Del Method 12/30/22 08:22 97.4 F 70 18 158/86 H 96 Room Air Airway Mallampati Class: III TM Dist: >3cm Neck ROM: Full Loose/Missing/Broken Teeth: Yes (Broken/loose filling. ) Heart: RRR (PVCs on monitor). No pacing spikes seen Lungs: CTAB Assessment and Plan Assessment Anesthesia Assessment: Anesthesia Plan Discussed Final Anesthetic Review Family History of Problems with Anesthesia: No History of Problems with Anesthesia: No NPO: Yes ASA Class: III Final Preanesthetic Review: No Changes in Pt Med Stat, Meds/Allgs Chart Reviewed, Consent Obtained/Reviewed and Anes Risks/Benef Reviewed Patient Risk: Intermediate Procedure Risk: Low Assessment/Block/Sedation in SS: Assess/Block/Sedation-SS Anesthetic Plan Anesthetic Plan: MAC: Disposition: Standard PACU
[2022-12-30 07:49] VITALS: BMI 27.4
[2022-12-30] MEDS: Gentamicin Sulfate/NaCl 80 MG/100 ML PIGGYBACK 100 MG IV (08:20)
[2022-12-30] MEDS: Lactated Ringers 1,000 ML 50 ML IVCONT (08:21)
[2022-12-30 08:22] VITALS: BP 158/86; PULSE 70; RESP 18; TEMP 36.3; O2SAT 96
[2022-12-30 10:03] VITALS: BP 118/75; PULSE 61; RESP 16; TEMP 36.2; O2SAT 99
--- NOTE | 2022-12-30 10:06 | P.BOP_ITS ---
Brief Operative Note Date of Service: 12/30/22 Pre-op diagnosis: Screening Post-op diagnosis: other (Polyp) Procedure: Colonoscopy to the cecum and TI with hot snare polypectomy and placement of 4 Resolution clips Surgeon: Cecilio Ray Anesthesia: MAC Was an Recording Studio Set Up Worker used for this Procedure?: No Estimated blood loss (mL): 2.0 Pathology: other (A. Hepatic flexure polyp) Condition: stable Disposition: PACU
[2022-12-30 10:19] VITALS: BP 143/81; PULSE 60; RESP 16; TEMP 36.1; O2SAT 98
--- NOTE | 2022-12-30 10:24 | OP_ITS ---
DATE OF SERVICE: 12/30/2022 SURGEON: Cecilio Ray MD INDICATIONS: The patient presents for followup of personal history of tubular adenomas of the colon, family history of colon cancer, and need for colorectal cancer screening. Full consent obtained from him for this, including risks of bleeding and perforation. PREOPERATIVE DIAGNOSIS: POSTOPERATIVE DIAGNOSIS: PROCEDURE PERFORMED: Colonoscopy to the cecum and terminal ileum with hot snare polypectomy and placement of 4 Resolution clips. ESTIMATED BLOOD LOSS: COMPLICATIONS: ANESTHESIA: Monitored anesthesia care. ASSISTANTS: SPECIMENS: PREOP DIAGNOSES: Colorectal cancer screening, family history of colon cancer, personal history of tubular adenoma of the colon. POSTOP DIAGNOSES: Colorectal cancer screening, family history of colon cancer, personal history of tubular adenoma of the colon, colon polyp, diverticulosis and internal hemorrhoids. DESCRIPTION OF PROCEDURE: The patient was placed in the left lateral decubitus position. The digital rectal exam revealed no abnormalities. The Astley Clarke video pediatric colonoscope was entered into the rectum and advanced to the cecum with the assistance of abdominal pressure. Once in the cecum, I did identify normal-appearing cecal pouch with appendiceal orifice and a normal-appearing ileocecal valve. The terminal ileum was cannulated and appeared normal. The scope was withdrawn back in the colon. The entire cecum and ileocecal valve appeared normal. The scope was slowly withdrawn assessing all mucosal surfaces carefully. Preparation was excellent. In the region of the hepatic flexure was a flat, but lobulated approximately 15 x 8 mm grossly adenomatous polyp. This was removed by hot snare polypectomy in piecemeal fashion with all pieces recovered for pathology by suction. The polypectomy site ultimately appeared to be clean and without any sign of residual polyp nor bleeding. I did place 4 Resolution clips on the polypectomy site with good deployment and good hemostasis. I did not visualize any other polyps, colitis, nor angiodysplasia. There was a mild amount of sigmoid diverticulosis. In the rectum, scope was retroflexed visualizing internal hemorrhoids, but no other pathology. The rectal mucosa appeared normal. The scope was straightened and withdrawn from the patient. He tolerated the procedure well and was returned to recovery area in stable condition. IMPRESSION: 1. Colon polyp, status post hot snare polypectomy and placement of 4 Resolution clips. 2. Diverticulosis. 3. Internal hemorrhoids. PLAN: The results of the pathology will be checked. Given this finding, his personal history of colon polyps, and family history, I would recommend a repeat colonoscopy within 1 year for further screening and surveillance. He was advised to resume his aspirin tomorrow. He was advised to resume his Eliquis in 48 hours. He did receive preprocedure antibiotics and was given a prescription to use amoxicillin later today as well. He would otherwise see me on a p.r.n. basis. This has been discussed with his . MD NAVID Willis/THAO / [id number] MTDD
== END 2022-12-30 10:33 | disposition home or self-care (01) ==
PROVIDERS: PCP Internal Medicine; Visit Provider Internal Medicine
PROC: 0DJD8ZZ Inspection of Lower Intestinal Tract, Via Natural or Artificial Opening Endoscopic (ICD-10-PCS; CPT 45378; principal; 2022-12-30 08:30)
DX: Z12.11 Encounter for screening for malignant neoplasm of colon (principal); D12.3 Benign neoplasm of transverse colon; K57.30 Diverticulosis of large intestine without perforation or abscess without bleeding; K64.8 Other hemorrhoids; Z86.010 Personal history of colon polyps; Z80.0 Family history of malignant neoplasm of digestive organs; I10 Essential (primary) hypertension; K21.9 Gastro-esophageal reflux disease without esophagitis; E78.00 Pure hypercholesterolemia, unspecified; I48.91 Unspecified atrial fibrillation; F12.90 Cannabis use, unspecified, uncomplicated; Z95.2 Presence of prosthetic heart valve; Z87.891 Personal history of nicotine dependence; Z79.82 Long term (current) use of aspirin; Z79.899 Other long term (current) drug therapy; Z79.01 Long term (current) use of anticoagulants
CPT/HCPCS: 45385; 88305; J0290; J1580; J2250

== ENCOUNTER 2023-04-07 06:00 | Outpatient (REF) | payer OTHER, SELFPAY ==
[2023-04-07 11:20] LABS: MANUAL DIFF FLAG NO
[2023-04-07 11:26] LABS: Appearance Urine Clear; Color Urine Yellow; Glucose Urine UA Negative (Negative); Leukocyte Esterase Urine Negative (Negative); Nitrite Urine Negative (Negative); UMIC TRIGGER UACC YES; Urine Blood Moderate (2+) (Negative); Urine Ketones Negative (Negative); Urine Protein 30 (1+) mg/dL (Neg-Trace)
[2023-04-07 11:32] LABS: Bacteria Urine None Seen (None Seen); Hyaline Casts Urine 0-2 /LPF (0-2); Squamous Epithelial Cell Urine 0-2 /HPF (0-2); WBC Urine 0-5 /HPF (0-5)
[2023-04-07 12:04] LABS: Alanine Aminotransferase 15 U/L (0-40); Albumin Level 4.4 g/dL (3.5-5.0); Alkaline Phosphatase 51 U/L (39-117); Anion Gap 12 (12-20); Aspartate Amino Transferase 26 U/L (5-37); Basophils Percent Auto 0.3 % (0-2); Bilirubin Total 0.5 mg/dL (0.0-1.0); Blood Urea Nitrogen 13 mg/dL (9-16); Calcium 9.4 mg/dL (8.4-10.2); Carbon Dioxide 29 mmol/L (22-29); Chloride 94 mmol/L (96-108); Cholesterol 153 mg/dL (<200); Eosinophils Absolute Auto 0.1 X10*3/uL (0.0-0.4); Estimated Glomerular Filt Rate > 60; Glucose Fasting 105 mg/dL (60-99); HDL Cholesterol 73 mg/dL (>40); Hemoglobin 14.3 g/dl (14.0-18.0); Imm Gran Abs Auto 0.04 X10*3/uL (0.00-0.03); Imm Gran Pct Auto 0.7 % (0.0-0.4); LDL Cholesterol Calculated 70 mg/dL (<100); Lymphocytes Absolute Auto 1.5 X10*3/uL (1.2-4.9); Lymphocytes Percent Auto 25.3 % (20-40); Mean Corpuscular Hemoglobin 31.4 pg (27.0-33.0); Mean Corpuscular Volume 92.3 fL (80.0-98.0); Monocytes Absolute Auto 0.7 X10*3/uL (0.1-1.2); Monocytes Percent Auto 11.2 % (2-11); Neutrophils Absolute Auto 3.6 x10*3/uL (2.0-8.3); Neutrophils Percent Auto 61.5 % (45-73); Platelet Count 285 X10*3/uL (160-400); Potassium 4.2 mmol/L (3.3-5.1); Red Blood Count 4.55 X10*6/uL (4.60-5.80); Red Cell Distribution Width 12.4 % (11.0-16.0); Sodium 131 mmol/L (135-145); Total Protein 7.3 g/dL (6.5-8.0); Triglycerides 54 mg/dL (<150); White Blood Count 5.9 X10*3/uL (4.8-10.8)
[2023-04-07 12:11] LABS: TSH reflex Free T4 0.87 uIU/mL (0.32-4.0); Vitamin D 25-OH Total 75.5 ng/mL (>30)
[2023-04-07 12:17] LABS: Folate 14.7 ng/mL (> or = 4.0); Vitamin B12 608 pg/mL (200-900)
== END 2023-04-07 06:01 | disposition home or self-care (01) ==
LOC: HO.HMGCLDS 06:00
PROVIDERS: PCP Internal Medicine; Visit Provider Internal Medicine
DX: I10 Essential (primary) hypertension (principal); E78.00 Pure hypercholesterolemia, unspecified; E53.8 Deficiency of other specified B group vitamins; E55.9 Vitamin D deficiency, unspecified
CPT/HCPCS: 36415; 80053; 80061; 81001; 82306; 82607; 82746; 84443; 85025

== ENCOUNTER 2023-04-14 14:08 | Outpatient (AMB) | payer OTHER, SELFPAY ==
[2023-04-14 14:10] VITALS: BP 120/80; PULSE 74; O2SAT 98; BMI 26.5
--- NOTE | 2023-04-14 14:10 | MHC.PC.OV ---
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 Required: No Accompanied by: Self / Same As Patient Allergies bee pollen [bee stings] Allergy (Verified 04/14/23 14:34) Unknown Medication List - Last Reconciled 04/14/23 by Jay Cavazos MD acetaminophen-codeine 300-30 mg 1 tab PO TID PRN 7 days amoxicillin 2,000 mg (4 x 500 mg) PO DAILY 1 day apixaban (Eliquis) 5 mg PO BID aspirin 81 mg PO DAILY atorvastatin 40 mg PO DAILY dabigatran etexilate (Pradaxa) 150 mg PO BID 90 days diltiazem HCl ER 240 mg PO DAILY divalproex ER (Depakote ER) 500 mg PO BID docusate sodium (Colace) 100 mg PO DAILY PRN finasteride 5 mg PO DAILY gabapentin 400 mg PO TID lisinopril 40 mg PO DAILY olanzapine 10 mg PO BEDTIME Tobacco use date assessed: 04/14/23 Fall risk assessment: 2 + Falls in past year Last assessed Fall Risk: 04/14/23 Dental Screening Dental Screen Date: 04/14/23 Did you have a dental visit in the last 12 months?: Yes Did you have a dental problem in the last 6 months where you did not have access to dental care?: No Was dental information given to patient?: Patient has dentist HPI 6 MONTH F/U HPI Details Patient comes in today for his follow up visit States that he is still experiencing recurrent pain in his left thigh (symptoms have been going on for a while now - thinks a couple of years) and patient feels that he may have torn or ruptured some muscle in his thigh at some point He denies any weakness of his left thigh/leg but would like to see if he can be sent for some testing or evaluation to look into this further States that he feels okay otherwise He denies any headaches or dizziness Denies any chest pains, no SOB No nausea/vomiting, no abdominal pain No change in bowel habits noted Needs his Tylenol with codeine Rx refilled Had his follow up labs done last week - to discuss his results [facility] Medical History Lower back pain Anxiety Depression Impaired fasting glucose Overweight (BMI 25.0-29.9) Bipolar disorder GERD (gastroesophageal reflux disease) Degenerative disc disease, cervical Lumbar disc herniation with radiculopathy Pure hypercholesterolemia Atrial fibrillation Benign essential hypertension Severe aortic stenosis Surgical History Hx of hand surgery Hx of colonoscopy History of pacemaker H/O aortic valve replacement Family History Father Brain cancer Mother Cancer Brother Colon cancer Other Mental health problem Substance abuse Housing: House Alcohol intake: current Alcohol intake frequency: a few times a week Alcohol type: beer Patient Tobacco Use Status: Former Tobacco user e-Cigarette/Vaping Use: Never Used Second Hand Smoke Exposure: No Substance Use Type: Marijuana service: No Current occupational status: employed 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 1. Little interest or pleasure in doing things: not at all 2. Feeling down, depressed, or hopeless: not at all 3. Trouble falling or staying asleep, or sleeping too much: not at all 4. Feeling tired or having little energy: not at all 5. Poor appetite or overeating: not at all 6. Feeling bad about yourself - or that you are a failure or have let yourself or your family down: not at all 7. Trouble concentrating on things, such as reading the newspaper or watching television: not at all 8. Moving or speaking so slowly that other people could have noticed. Or the opposite - being so fidgety or restless that you have been moving around a lot more than usual: not at all 9. Thoughts that you would be better off or of hurting yourself in some way: not at all Total score: 0 Depression Screening Interpretation: Negative Depression Screening Done: Yes 53582 - PHQ-9 Billing: Yes Source: Developed by Drs. Cecilio Fritz, Yakelin Cerrato, Jared Kruger and colleagues, with an educational juan from [employer]. Thrive Questionnaire Date Thrive assessed: 04/14/23 I am a: Patient What is your living situation today?: I have a steady place to live Within the past 12 months, did the food you bought not last and you didn't have the money to get more?: Never true Within the past 12 months, did you worry whether your food would run out before you got money to buy more?: Never true Do you have trouble paying for medicines?: No Do you have trouble getting transportation to medical appointments?: No Do you have trouble paying your heating and electricity bill?: No Do you have trouble taking care of your child, family member or friend?: No Do you have trouble with day-to-day activities such as bathing, preparing meals, shopping, managing finances, etc.?: No Are you currently unemployed and looking for a job?: No Are you interested in more education?: No Please select the resources that you would like help with: None Currently or been in a relationship where the following occur: no concerns reported AUDIT C Alcohol Use Questionnaire (AUDIT-C) 1. How often do you have a drink containing alcohol?: 2-3 times a week 2. How many drinks containing alcohol do you have on a typical day when you are drinking?: 1 or 2 3. How often do you have six or more drinks on one occasion?: Never Total Score: 3 Score Reviewed/Action Taken: Yes ELIZABET-7 AMB Questionnaire ELIZABET-7 Date ELIZABET - 7 assessed: 04/14/23 Feeling nervous, anxious, or on edge: 0 = Not at all Not being able to stop or control worryin = Not at all Worrying too much about different things: 0 = Not at all Trouble relaxin = Not at all Being so restless that it is hard to sit still: 0 = Not at all Becoming easily annoyed or irritable: 0 = Not at all Feeling afraid as if something awful might happen: 0 = Not at all Total ELIZABET-7 score (0-4 normal; 5-9 mild; 10-14 moderate; 15-21 severe): 0 Source: Developed by Drs. Cecilio Fritz, Yakelin BJared Vegas and colleagues, with an educational juan from [employer]. Review of Systems Const Reports daytime sleepiness (at times), Reports fatigue, Denies fever(s), Denies headache(s) and Denies stops breathing during sleep ENT Denies dysphagia, Denies dizziness, Denies otalgia, Denies headache(s), Denies neck pain, Denies odynophagia and Denies sore throat Card Denies chest pain, Denies palpitations and Denies dyspnea Resp Denies chest congestion, Denies cough and Denies dyspnea GI Denies abdominal pain, Denies constipation, Denies dysphagia, Denies heartburn, Denies diarrhea, Denies nausea, Denies odynophagia and Denies vomiting Denies dysuria, Denies nocturia and Denies urinary frequency Musc Details: (+) recurrent pain over the left thigh, especially over the medial aspect of the thigh Reports back pain, Reports arthralgias (right shoulder; left hip, especially when walking), Denies neck pain, Denies numbness and Denies tingling Skin/Breast Denies rash Neuro Denies dizziness, Denies headache(s), Denies memory loss, Denies numbness and Denies tingling Psych Denies anxiety, Denies depression and Denies memory loss Endo Reports fatigue and Denies palpitations Physical exam (Primary Care) Vital Signs: Last Vital Signs Pulse 74 04/14/23 14:10 BP 120/80 04/14/23 14:10 Pulse Ox 98 04/14/23 14:10 Oxygen Delivery Method Room Air 04/14/23 14:10 BMI result Body Mass Index 26.5 Tobacco/Smoking Status: Tobacco use Status Tobacco use date assessed 04/14/23 04/14/23 14:18 Patient Tobacco Use Status Former Tobacco user 04/14/23 14:18 e-Cigarette/Vaping Use Never Used 04/14/23 14:18 PHQ-9: PHQ-9 Score PHQ-9: Total score 0 04/14/23 14:32 Depression Screening Interpretation: Negative Thrive Assessment: Date of Thrive Assessment Date Thrive assessed 04/14/23 04/14/23 14:18 Currently or been in a relationship where the following occur: no concerns reported Const General: no acute distress and alert HENMT Ears: TM's normal bilaterally and EAC's normal Throat: Yes posterior oropharynx normal and Yes tonsils normal (no TP congestion noted) Neck Neck: Yes no lymphadenopathy and Yes supple Thyroid: Thyroid normal Resp Auscultation: clear to auscultation bilaterally, no rales and no wheezes Cardio Rate: regular rate Rhythm: regular rhythm Heart sounds: no murmurs GI Palpation (GI): Soft to palpation and nontender Auscultation: normal bowel sounds General: Yes no CVA tenderness Back/Spine/Pelvis Back: no CVA tenderness Thoracic/Lumbar Spine: lumbar spinal tenderness (chronic) Skin Rashes: no rashes Extrem General: Yes no clubbing, cyanosis or edema Results Reviewed Results Reviewed: Laboratory Tests 07/20/22 04/07/23 06:21 06:05 WBC 5.9 Hgb 14.3 Hct 42.0 Plt Count 285 Sodium 131 L 131 L Potassium 4.5 4.2 Creatinine 0.87 0.84 Estimated GFR > 60 > 60 Fasting Glucose 115 H 105 H Calcium 9.3 9.4 AST 44 H 26 ALT 23 15 Triglycerides 43 54 Cholesterol 158 153 LDL Cholesterol, Calc 77 70 HDL Cholesterol 73 73 Vitamin B12 608 25-OH Vitamin D Total 75.5 TSH 0.87 Ur Specific [place] 1.010 Urine Protein 30 (1+) H Urine Glucose (UA) Negative Urine Blood Moderate (2+) H Assessment and Plan Assessment & Plan (1) Benign essential hypertension: Code(s): I10 - Essential (primary) hypertension Plan: Reinforced low-sodium diet - goal is systolic BP of 120 to 130 mm or less Continue Lisinopril 40 mg QD Patient is reminded to continue monitoring his blood pressure regularly (2) Pure hypercholesterolemia: Code(s): E78.00 - Pure hypercholesterolemia, unspecified Plan: Results of his labs done last week reviewed and discussed with patient Reinforced low cholesterol diet Continue Atorvastatin 40 mg QD Will recheck his labs and fasting lipids in 6 months for follow-up (3) Atrial fibrillation: Comment: S/P STEPHANIE cardioversion in June 2019 and presently has a defibrillator in place on his left upper chest wall Code(s): I48.91 - Unspecified atrial fibrillation Qualifiers: Atrial fibrillation type: unspecified Qualified Code(s): I48.91 - Unspecified atrial fibrillation Plan: Patient is currently still in sinus rhythm Continue Diltiazem ER 240 mg QD; continue Eliquis 5 mg BID for thromboembolism prophylaxis Follow-up with cardiology as scheduled (4) Severe aortic stenosis: Comment: S/P AVR with bioprosthetic valve in June 2019 Code(s): I35.0 - Nonrheumatic aortic (valve) stenosis Plan: S/P AVR in 06/2019 with no acute issues since; did not complete his cardiac rehab a couple of years ago due to the COVID-19 pandemic but states that he went back to work shortly afterwards with no problems and he has been back to his baseline level of functioning for the past couple of years now Follow-up with cardiac surgeon as scheduled or as needed (5) S/P AVR (aortic valve replacement): Code(s): Z95.2 - Presence of prosthetic heart valve Plan: S/P AVR on 07/03/2019 at [facility] - is currently doing well (6) Impaired fasting glucose: Code(s): R73.01 - Impaired fasting glucose Plan: FBS was slightly elevated at 105 mg/dl on his recent labs but HgbA1c was normal at 5.5% when previously checked Reinforced low calorie diet/exercise as tolerated (7) Lumbar disc herniation with radiculopathy: Code(s): M51.16 - Intervertebral disc disorders with radiculopathy, lumbar region Plan: Reinforced activity and weight lifting restrictions to avoid aggravating his low back pain Has been getting injections into his lower back at [facility] with (+) significant improvement of his low back pain Continue OTC Tylenol as needed for pain and Tylenol # 3 (Rx refilled) only as needed for severe pain (8) Degenerative disc disease, cervical: Code(s): M50.30 - Other cervical disc degeneration, unspecified cervical region Plan: States that his neck pain remains adequately controlled on his current Rx (9) Left thigh pain: Code(s): M79.652 - Pain in left thigh Plan: Will refer patient to physical therapy for further evaluation and management (10) Left hip pain: Code(s): M25.552 - Pain in left hip Plan: Left hip x-rays done back in 2013 revealed (+) mild OA changes and possible calcific tendinitis at the greater trochanter Patient was previously sent for repeat left hip x-rays for further evaluation but he did not get this done (11) GERD (gastroesophageal reflux disease): Code(s): K21.9 - Gastro-esophageal reflux disease without esophagitis Qualifiers: Esophagitis presence: without esophagitis Qualified Code(s): K21.9 - Gastro-esophageal reflux disease without esophagitis Plan: Dietary restrictions reinforced Takes OTC Tums or OTC Prilosec as needed when his symptoms flare up (12) Bipolar disorder: Code(s): F31.9 - Bipolar disorder, unspecified Qualifiers: Active/Remission status: currently active Current bipolar episode type: mixed Current episode severity: unspecified Qualified Code(s): F31.60 - Bipolar disorder, current episode mixed, unspecified Plan: Continue Zyprexa 10 mg daily at bedtime and Depakote ER 500 mg twice a day Follow up with psychiatry as scheduled (13) Overweight (BMI 25.0-29.9): Code(s): E66.3 - Overweight Plan: Reinforced diet/exercise as tolerated/lose weight Plan Follow up in 6 months Orders: Orders Lipid Panel 6 Months E78.00 - Pure hypercholesterolemia, unspecified UA CC w/rflx Micro + Cult 6 Months R30.0 - Dysuria Vitamin D 25-OH Total 6 Months E55.9 - Vitamin D deficiency, unspecified PT Evaluation and Treatment 04/14/23 M79.652 - Pain in left thigh Complete Blood Count Auto Diff 6 Months I10 - Essential (primary) hypertension Comprehensive [place]. Panel Fast 6 Months E78.00 - Pure hypercholesterolemia, unspecified Hemoglobin A1c 6 Months R73.01 - Impaired fasting glucose TSH reflex Free T4 6 Months E78.00 - Pure hypercholesterolemia, unspecified Medications: Refilled acetaminophen-codeine 300-30 mg take 1/2 to 1 tablet orally 2 to 3 times a day only as needed for increased pain 1 tab PO TID 7 days PRN 21 tabs 0RF pain Coding Level of Care Code Est Pt Level 4 (21544) Diagnoses Benign essential hypertension I10 Pure hypercholesterolemia E78.00 Atrial fibrillation, unspecified type I48.91 Atrial fibrillation type: unspecified Severe aortic stenosis I35.0 S/P AVR (aortic valve replacement) Z95.2 Impaired fasting glucose R73.01 Lumbar disc herniation with radiculopathy M51.16 Degenerative disc disease, cervical M50.30 Left thigh pain M79.652 Left hip pain M25.552 Gastroesophageal reflux disease without esophagitis K21.9 Esophagitis presence: without esophagitis Bipolar affective disorder, current episode mixed, current episode severity unspecified F31.60 Active/Remission status: currently active Current bipolar episode type: mixed Current episode severity: unspecified Overweight (BMI 25.0-29.9) E66.3
== END 2023-04-14 14:45 | disposition home or self-care (01) ==
PROVIDERS: Visit Provider Internal Medicine
DX: I10 Essential (primary) hypertension (principal); I48.91 Unspecified atrial fibrillation; F31.60 Bipolar disorder, current episode mixed, unspecified; E78.00 Pure hypercholesterolemia, unspecified; I35.0 Nonrheumatic aortic (valve) stenosis; Z95.2 Presence of prosthetic heart valve; R73.01 Impaired fasting glucose; M51.16 Intervertebral disc disorders with radiculopathy, lumbar region; M50.30 Other cervical disc degeneration, unspecified cervical region; M79.652 Pain in left thigh; M25.552 Pain in left hip; K21.9 Gastro-esophageal reflux disease without esophagitis
CPT/HCPCS: 99214

== ENCOUNTER 2023-08-19 15:00 | Outpatient (RCR) | payer OTHER, SELFPAY ==
--- NOTE | 2023-07-01 14:46 | MHC.PT.EP ---
[facility] [place] [facility] [place] [facility] [place] [facility] [address] Bharath Ratliff [address] [phone] F: [phone] F: [phone] F: [phone] F: [phone] Physical Therapy Plan of Care Date of Evaluation: 06/30/23 Date of Surgery: Diagnosis: LEFT thigh pain (MD dx) LEFT Lumbar raidculopathy(?) (PT Dx) [ End ] Assessment: Patient is a pleasant 63 y.o. male who is referred to PT by Dr. Jay Cavazos MD with Dx of LEFT thigh pain. PT diagnosis is LEFT Lumbar raidculopathy due to presentation, he also presents with muscle imbalances in L hip and low back with compensations during gait. Patient impairments include poor posture, pain, limited ROM, radiculopathy, weakness, antalgic gait. 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 Patient will benefit from skilled PT to address aforementioned impairments and functional limitations to meet established goals. Frequency and Duration: The patient will be seen 1-2x/week for 8 weeks Short Term Goals: 4 weeks Patient demonstrates consistency and independence with HEP to self manage symptoms. Rice Farmer Goals: 8 weeks Patient presents with increased LEFT hip glute med strength 4+/5 to be able to carry laundry without sxs. Patient presents with increased LEFT hip glute max 4/5 to be able to stand for prolonged periods of time at work. Treatment Plan: Modalities to reduce pain, spasms and effusion. Manual therapy to restore motion and function. Therapeutic exercise to improve strength and flexibility. Neuromuscular re-education for posture and balance. Therapeutic activities to return to functional activities of daily living. Electronically signed by: [place], PT, DPT Please sign and return to therapist. Thank you for your referral.
--- NOTE | 2023-08-19 16:01 | MHC.PT.DC ---
[facility] [place] Office [place] Office [place] [facility] [address] Bharath Ratliff [address] [phone] F: [phone] F: [phone] F: [phone] F: [phone] Physical Therapy Discharge Report Diagnosis: LEFT thigh pain (MD dx) LEFT Lumbar raidculopathy(?) (PT Dx) [ End ] Date of Surgery: Date of Evaluation: 06/30/23 Date of Discharge: 08/19/23 Treatments to Date: 8 Cancellations to Date: No Shows to Date: Discharge Status: Achieved Goals Improved Function Independent with HEP Discharge Summary: Andrew shows improvement objectively and subjectively and has been able to reduce his pain level and improve functional mobility with PT interventions. We discuss being mindful of his posture with activities to reduce hip and back tightness. He feels ready for discharge. Electronically signed by: [place], PT, DPT Please sign and return to therapist. Thank you for your referral.
== END 2023-08-19 16:01 | disposition home or self-care (01) ==
LOC: HO.PT 15:00
PROVIDERS: PCP Internal Medicine; Visit Provider Internal Medicine
DX: M79.652 Pain in left thigh (principal)
CPT/HCPCS: 97110; 97140; 97162; 97530

== ENCOUNTER 2023-10-13 13:53 | Outpatient (AMB) | payer OTHER, SELFPAY ==
[2023-10-13 14:07] VITALS: BP 102/60; PULSE 66; O2SAT 97; BMI 26.7
--- NOTE | 2023-10-13 14:07 | A.OFFPC_ITS ---
Vital Signs 10/13/23 14:07 Height 5 ft 7.5 in Weight 173 lb BMI 26.7 BP 102/60 Blood Pressure Location Lt brachial Position Sitting Pulse 66 Pulse Source Pulse Oximeter Pulse Oximetry (%) 97 Oxygen Delivery Method Room Air Intake Visit Reasons: AF, hyperlipidemia, HTN Return Agent Airport Required: No Allergies bee pollen [bee stings] Allergy (Verified 10/13/23 14:52) Unknown Medication List - Last Reconciled 10/13/23 by Jay Cavazos MD acetaminophen-codeine 300-30 mg 1 tab PO TID PRN 7 days apixaban (Eliquis) 5 mg PO BID aspirin 81 mg PO DAILY atorvastatin 40 mg PO DAILY dabigatran etexilate (Pradaxa) 150 mg PO BID 90 days diltiazem HCl ER 240 mg PO DAILY divalproex ER (Depakote ER) 500 mg PO BID docusate sodium (Colace) 100 mg PO DAILY PRN finasteride 5 mg PO DAILY gabapentin 400 mg PO TID lisinopril 40 mg PO DAILY olanzapine 10 mg PO BEDTIME Tobacco use date assessed: 10/13/23 Fall risk assessment: No Falls in past year Last assessed Fall Risk: 10/13/23 Dental Screening Dental Screen Date: 10/13/23 Did you have a dental visit in the last 12 months?: No Did you have a dental problem in the last 6 months where you did not have access to dental care?: No Was dental information given to patient?: Patient has dentist HPI AF, hyperlipidemia, HTN HPI Details Patient comes in today for his follow up visit States that he feels okay overall He was just diagnosed with SCC on the right ankle area and he is scheduled for excision tomorrow at [facility] He denies any headaches or dizziness Denies any chest pains, no SOB No nausea/vomiting, no abdominal pain No change in bowel habits noted Needs his Tylenol with Codeine Rx refilled today He was not able to get his follow up labs done prior to his appointment today - is advised to try to get these done [facility] Medical History Lower back pain Anxiety Depression Impaired fasting glucose Overweight (BMI 25.0-29.9) Bipolar disorder GERD (gastroesophageal reflux disease) Degenerative disc disease, cervical Lumbar disc herniation with radiculopathy Pure hypercholesterolemia Atrial fibrillation Benign essential hypertension Severe aortic stenosis Surgical History Hx of hand surgery Hx of colonoscopy History of pacemaker H/O aortic valve replacement Family History Father Brain cancer Mother Cancer Brother Colon cancer Other Mental health problem Substance abuse Social History Housing: House Alcohol intake: current Alcohol intake frequency: a few times a week Alcohol type: beer Patient Tobacco Use Status: Former Tobacco user e-Cigarette/Vaping Use: Never Used Second Hand Smoke Exposure: No Substance Use Type: Marijuana service: No Current occupational status: employed 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 1. Little interest or pleasure in doing things: not at all 2. Feeling down, depressed, or hopeless: not at all 3. Trouble falling or staying asleep, or sleeping too much: not at all 4. Feeling tired or having little energy: not at all 5. Poor appetite or overeating: not at all 6. Feeling bad about yourself - or that you are a failure or have let yourself or your family down: not at all 7. Trouble concentrating on things, such as reading the newspaper or watching television: not at all 8. Moving or speaking so slowly that other people could have noticed. Or the opposite - being so fidgety or restless that you have been moving around a lot more than usual: not at all 9. Thoughts that you would be better off or of hurting yourself in some way: not at all Total score: 0 Depression Screening Interpretation: Negative Depression Screening Done: Yes 37120 - PHQ-9 Billing: Yes Source: Developed by Drs. Cecilio Fritz, Yakelin Cerrato, Jared Kruger and colleagues, with an educational juan from [employer]. Thrive Questionnaire Date Thrive assessed: 10/13/23 I am a: Patient What is your living situation today?: I have a steady place to live Within the past 12 months, did the food you bought not last and you didn't have the money to get more?: Never true Within the past 12 months, did you worry whether your food would run out before you got money to buy more?: Never true Do you have trouble paying for medicines?: No Do you have trouble getting transportation to medical appointments?: No Do you have trouble paying your heating and electricity bill?: No Do you have trouble taking care of your child, family member or friend?: No Do you have trouble with day-to-day activities such as bathing, preparing meals, shopping, managing finances, etc.?: No Are you currently unemployed and looking for a job?: No Are you interested in more education?: No Please select the resources that you would like help with: None Currently or been in a relationship where the following occur: no concerns reported THRIVE Score: 0 AUDIT C Alcohol Use Questionnaire (AUDIT-C) 1. How often do you have a drink containing alcohol?: 2-3 times a week 2. How many drinks containing alcohol do you have on a typical day when you are drinking?: 1 or 2 3. How often do you have six or more drinks on one occasion?: Never Total Score: 3 Score Reviewed/Action Taken: Yes ELIZABET-7 AMB Questionnaire ELIZABET-7 Date ELIZABET - 7 assessed: 10/13/23 Source: Developed by Drs. Cecilio Fritz, Yakelin Cerrato, Jared Kruger and colleagues, with an educational juan from [employer]. Review of Systems Const Denies chills, Denies fatigue, Denies fever(s) and Denies headache(s) ENT Denies dysphagia, Denies dizziness, Denies otalgia, Denies headache(s), Denies neck pain, Denies odynophagia and Denies sore throat Card Denies chest pain, Denies palpitations and Denies dyspnea Resp Denies chest congestion, Denies cough and Denies dyspnea GI Denies abdominal pain, Denies constipation, Denies dysphagia, Denies heartburn, Denies diarrhea, Denies nausea, Denies odynophagia and Denies vomiting Denies dysuria, Denies nocturia and Denies urinary frequency Musc Reports back pain, Reports arthralgias (right shoulder; left hip, especially whe n walking), Denies neck pain, Denies numbness and Denies tingling Skin/Breast Reports lesions (SCC lesion around the right ankle area - see HPI) and Denies rash Neuro Denies dizziness, Denies headache(s), Denies memory loss, Denies numbness and Denies tingling Psych Denies anxiety, Denies depression and Denies memory loss Endo Denies fatigue and Denies palpitations Physical exam (Primary Care) Vital Signs: Last Vital Signs Pulse 66 10/13/23 14:07 BP 102/60 10/13/23 14:07 Pulse Ox 97 10/13/23 14:07 Oxygen Delivery Method Room Air 10/13/23 14:07 BMI result Body Mass Index 26.7 Tobacco/Smoking Status: Tobacco use Status Tobacco use date assessed 10/13/23 10/13/23 14:09 Patient Tobacco Use Status Former Tobacco user 10/13/23 14:09 e-Cigarette/Vaping Use Never Used 10/13/23 14:09 PHQ-9: PHQ-9 Score PHQ-9: Total score 0 10/13/23 14:54 Depression Screening Interpretation: Negative Thrive Assessment: Date of Thrive Assessment Date Thrive assessed 10/13/23 10/13/23 14:09 Currently or been in a relationship where the following occur: no concerns reported Const General: no acute distress and alert HENMT Ears: TM's normal bilaterally and EAC's normal Throat: Yes posterior oropharynx normal and Yes tonsils normal (no TP congestion noted) Neck Neck: Yes no lymphadenopathy and Yes supple Thyroid: Thyroid normal Resp Auscultation: clear to auscultation bilaterally, no rales and no wheezes Cardio Rate: regular rate Rhythm: regular rhythm Heart sounds: no murmurs GI Palpation (GI): Soft to palpation and nontender Auscultation: normal bowel sounds General: Yes no CVA tenderness Back/Spine/Pelvis Back: no CVA tenderness Thoracic/Lumbar Spine: lumbar spinal tenderness (chronic) Skin Rashes: no rashes Extrem General: Yes no clubbing, cyanosis or edema Assessment and Plan Assessment & Plan (1) Benign essential hypertension: Code(s): I10 - Essential (primary) hypertension Plan: Reinforced low-sodium diet - goal is systolic BP of 120 to 130 mm or less Continue Lisinopril 40 mg QD Patient is reminded to continue monitoring his blood pressure regularly (2) Pure hypercholesterolemia: Code(s): E78.00 - Pure hypercholesterolemia, unspecified Plan: He is advised to try and get his previously ordered labs done LUISA Reinforced low cholesterol diet Continue Atorvastatin 40 mg QD Will recheck his labs and fasting lipids in 6 months for follow-up (3) Atrial fibrillation: Comment: S/P STEPHANIE cardioversion in June 2019 and presently has a defibrillator in place on his left upper chest wall Code(s): I48.91 - Unspecified atrial fibrillation Qualifiers: Atrial fibrillation type: unspecified Qualified Code(s): I48.91 - Unspecified atrial fibrillation Plan: Patient is currently still in sinus rhythm Continue Diltiazem ER 240 mg QD; continue Eliquis 5 mg BID for thromboembolism prophylaxis Follow-up with cardiology as scheduled (4) Severe aortic stenosis: Comment: S/P AVR with bioprosthetic valve in June 2019 Code(s): I35.0 - Nonrheumatic aortic (valve) stenosis Plan: S/P AVR in 06/2019 with no acute issues since; he did not complete his cardiac rehab a couple of years ago due to the COVID-19 pandemic but states that he went back to work shortly afterwards with no problems and he has been back to his baseline level of functioning for the past couple of years now Follow-up with cardiac surgeon as scheduled or as needed (5) S/P AVR (aortic valve replacement): Code(s): Z95.2 - Presence of prosthetic heart valve Plan: S/P AVR on 07/03/2019 at [facility] - is currently doing well (6) Impaired fasting glucose: Code(s): R73.01 - Impaired fasting glucose Plan: FBS was slightly elevated at 105 mg/dl but his HgbA1c was normal at 5.5% when previously checked Reinforced low calorie diet/exercise as tolerated (7) Lumbar disc herniation with radiculopathy: Code(s): M51.16 - Intervertebral disc disorders with radiculopathy, lumbar region Plan: Reinforced activity and weight lifting restrictions to avoid aggravating his low back pain He has been getting injections into his lower back at [facility] with (+) significant improvement of his low back pain Continue OTC Tylenol as needed for pain and Tylenol # 3 (Rx refilled) only as needed for severe pain (8) Degenerative disc disease, cervical: Code(s): M50.30 - Other cervical disc degeneration, unspecified cervical region Plan: States that his neck pain remains adequately controlled on his current Rx (9) Squamous cell carcinoma of skin of right lower extremity: Comment: around the right ankle area Code(s): C44.722 - Squamous cell carcinoma of skin of right lower limb, including hip Plan: He is scheduled for surgical excision tomorrow at [facility] (10) GERD (gastroesophageal reflux disease): Code(s): K21.9 - Gastro-esophageal reflux disease without esophagitis Qualifiers: Esophagitis presence: without esophagitis Qualified Code(s): K21.9 - Gastro-esophageal reflux disease without esophagitis Plan: Dietary restrictions reinforced He takes OTC Tums or OTC Prilosec as needed when his symptoms flare up (11) Bipolar disorder: Code(s): F31.9 - Bipolar disorder, unspecified Qualifiers: Active/Remission status: currently active Current bipolar episode type: mixed Current episode severity: unspecified Qualified Code(s): F31.60 - Bipolar disorder, current episode mixed, unspecified Plan: Continue Zyprexa 10 mg daily at bedtime and Depakote ER 500 mg twice a day Follow up with psychiatry as scheduled (12) Overweight (BMI 25.0-29.9): Code(s): E66.3 - Overweight Plan: Reinforced diet/exercise as tolerated/lose weight Plan Follow up in 6 months Orders: Orders Complete Blood Count Auto Diff 6 Months D64.9 - Anemia, unspecified Comprehensive [place]. Panel Fast 6 Months E78.00 - Pure hypercholesterolemia, unspecified TSH reflex Free T4 6 Months E78.00 - Pure hypercholesterolemia, unspecified Vitamin D 25-OH Total 6 Months E55.9 - Vitamin D deficiency, unspecified Lipid Panel 6 Months E78.00 - Pure hypercholesterolemia, unspecified UA CC w/rflx Micro + Cult 6 Months R30.0 - Dysuria Medications: Refilled acetaminophen-codeine 300-30 mg take 1/2 to 1 tablet orally 2 to 3 times a day only as needed for increased pain 1 tab PO TID 7 days PRN 21 tabs 0RF pain Coding Level of Care Code Est Pt Level 4 (21120) Diagnoses Benign essential hypertension I10 Pure hypercholesterolemia E78.00 Atrial fibrillation, unspecified type I48.91 Atrial fibrillation type: unspecified Severe aortic stenosis I35.0 S/P AVR (aortic valve replacement) Z95.2 Impaired fasting glucose R73.01 Lumbar disc herniation with radiculopathy M51.16 Degenerative disc disease, cervical M50.30 Squamous cell carcinoma of skin of right lower extremity C44.722 Gastroesophageal reflux disease without esophagitis K21.9 Esophagitis presence: without esophagitis Bipolar affective disorder, current episode mixed, current episode severity unspecified F31.60 Active/Remission status: currently active Current bipolar episode type: mixed Current episode severity: unspecified Overweight (BMI 25.0-29.9) E66.3
== END 2023-10-13 15:03 | disposition home or self-care (01) ==
LOC: HO.HMGH 13:54
PROVIDERS: PCP Internal Medicine; Visit Provider Internal Medicine
DX: I10 Essential (primary) hypertension (principal); I48.91 Unspecified atrial fibrillation; F31.60 Bipolar disorder, current episode mixed, unspecified; E78.00 Pure hypercholesterolemia, unspecified; I35.0 Nonrheumatic aortic (valve) stenosis; Z95.2 Presence of prosthetic heart valve; R73.01 Impaired fasting glucose; M51.16 Intervertebral disc disorders with radiculopathy, lumbar region; M50.30 Other cervical disc degeneration, unspecified cervical region; C44.722 Squamous cell carcinoma of skin of right lower limb, including hip; K21.9 Gastro-esophageal reflux disease without esophagitis; E66.3 Overweight
CPT/HCPCS: 99214

== ENCOUNTER 2023-10-28 09:24 | Outpatient (REF) | payer OTHER, SELFPAY ==
[2023-10-28 10:22] LABS: MANUAL DIFF FLAG NO
[2023-10-28 10:36] LABS: Basophils Percent Auto 0.5 % (0-2); Eosinophils Absolute Auto 0.1 X10*3/uL (0.0-0.4); Eosinophils Percent Auto 1.1 % (0-4); Hematocrit 41.7 % (42.0-52.0); Hemoglobin 14.4 g/dl (14.0-18.0); Imm Gran Abs Auto 0.04 X10*3/uL (0.00-0.03); Imm Gran Pct Auto 0.6 % (0.0-0.4); Lymphocytes Absolute Auto 1.6 X10*3/uL (1.2-4.9); Lymphocytes Percent Auto 24.3 % (20-40); Mean Corpuscular HGB Conc 34.5 g/dl (31.0-36.0); Mean Corpuscular Hemoglobin 32.1 pg (27.0-33.0); Mean Corpuscular Volume 92.9 fL (80.0-98.0); Mean Platelet Volume 9.5 fL (9.4-12.4); Monocytes Absolute Auto 0.8 X10*3/uL (0.1-1.2); Monocytes Percent Auto 12.5 % (2-11); Platelet Count 271 X10*3/uL (160-400); Red Blood Count 4.49 X10*6/uL (4.60-5.80); Red Cell Distribution Width 12.4 % (11.0-16.0); White Blood Count 6.5 X10*3/uL (4.8-10.8)
[2023-10-28 10:49] LABS: Appearance Urine Clear; Color Urine Dark Yellow; Glucose Urine UA Negative (Negative); Leukocyte Esterase Urine Negative (Negative); Nitrite Urine Negative (Negative); Specific Gravity - Urine 1.015 (1.005-1.025); UMIC TRIGGER UACC YES; Urine Blood Moderate (2+) (Negative); Urine Ketones Negative (Negative); Urine Protein 30 (1+) mg/dL (Neg-Trace)
[2023-10-28 10:52] LABS: Bacteria Urine None Seen (None Seen); Squamous Epithelial Cell Urine 0-2 /HPF (0-2); WBC Urine 0-5 /HPF (0-5)
[2023-10-28 10:57] LABS: Estimated Average Glucose 114 mg/dL; Hemoglobin A1c % 5.6 % (<6.0)
[2023-10-28 11:16] LABS: Alanine Aminotransferase 19 U/L (0-40); Albumin Level 4.3 g/dL (3.5-5.0); Alkaline Phosphatase 48 U/L (39-117); Anion Gap 9 (12-20); Aspartate Amino Transferase 30 U/L (5-37); Bilirubin Total 0.4 mg/dL (0.0-1.0); Blood Urea Nitrogen 19 mg/dL (9-16); Calcium 10.3 mg/dL (8.4-10.2); Carbon Dioxide 33 mmol/L (22-29); Chloride 99 mmol/L (96-108); Cholesterol 156 mg/dL (<200); Estimated Glomerular Filt Rate > 60; Glucose Fasting 106 mg/dL (60-99); HDL Cholesterol 71 mg/dL (>40); LDL Cholesterol Calculated 75 mg/dL (<100); Potassium 4.1 mmol/L (3.3-5.1); Sodium 137 mmol/L (135-145); Total Protein 7.3 g/dL (6.5-8.0); Triglycerides 53 mg/dL (<150)
[2023-10-28 11:31] LABS: TSH reflex Free T4 1.29 uIU/mL (0.32-4.0); Vitamin D 25-OH Total 45.9 ng/mL (>30)
== END 2023-10-28 09:25 | disposition home or self-care (01) ==
LOC: HO.HMGCLDS 09:24
PROVIDERS: PCP Internal Medicine; Visit Provider Internal Medicine
DX: E55.9 Vitamin D deficiency, unspecified (principal); E78.00 Pure hypercholesterolemia, unspecified; I10 Essential (primary) hypertension; R73.01 Impaired fasting glucose
CPT/HCPCS: 36415; 80053; 80061; 81001; 82306; 83036; 84443; 85025

== ENCOUNTER 2024-01-21 08:35 | Outpatient (REF) | payer OTHER, SELFPAY ==
[2024-01-21 10:47] LABS: Cholesterol 144 mg/dL (<200); HDL Cholesterol 75 mg/dL (>40); LDL Cholesterol Calculated 61 mg/dL (<100); Triglycerides 41 mg/dL (<150)
[2024-01-21 10:52] LABS: Valproate 48.6 mcg/mL (50.0-100.0)
== END 2024-01-21 08:36 | disposition home or self-care (01) ==
LOC: HO.HMGCLDS 08:35
PROVIDERS: PCP Internal Medicine; Referring Provider Psychiatry & Neurology Psychiatry; Visit Provider Registered Nurse
DX: F31.9 Bipolar disorder, unspecified (principal); I42.9 Cardiomyopathy, unspecified
CPT/HCPCS: 36415; 80061; 80164

== ENCOUNTER 2024-04-14 14:18 | Outpatient (AMB) | payer OTHER, SELFPAY ==
[2024-04-14 14:24] VITALS: BP 138/86; PULSE 60; O2SAT 98; BMI 27.2
--- NOTE | 2024-04-14 14:24 | MHC.PC.OV ---
Vital Signs 04/14/24 14:24 Height 5 ft 7.5 in Weight 176 lb 6 oz BMI 27.2 BP 138/86 Blood Pressure Location Lt brachial Position Sitting Pulse 60 Pulse Source Pulse Oximeter Pulse Oximetry (%) 98 Oxygen Delivery Method Room Air Intake Visit Reasons: PAF, hyperlipidemia, HTN Occupational Therapy Director Required: No Accompanied by: Self / Same As Patient Allergies bee pollen [bee stings] Allergy (Verified 04/14/24 14:53) Unknown Medication List - Last Reconciled 04/14/24 by Jay Cavazos MD acetaminophen-codeine 300-30 mg 1 tab PO TID PRN 7 days amoxicillin 2,000 mg (4 x 500 mg) PO DAILY 1 day apixaban (Eliquis) 5 mg PO BID aspirin 81 mg PO DAILY atorvastatin 40 mg PO DAILY dabigatran etexilate (Pradaxa) 150 mg PO BID 90 days diltiazem HCl ER 240 mg PO DAILY divalproex ER (Depakote ER) 500 mg PO BID docusate sodium (Colace) 100 mg PO DAILY PRN finasteride 5 mg PO DAILY gabapentin 400 mg PO TID lisinopril 40 mg PO DAILY olanzapine 10 mg PO BEDTIME Tobacco use date assessed: 10/13/23 Dental Screening Dental Screen Date: 10/13/23 HPI PAF, hyperlipidemia, HTN HPI Details Patient comes in today for his follow up visit States that he feels okay He denies any headaches or dizziness Denies any chest pains, no increased SOB No nausea/vomiting, no abdominal pain No change in bowel habits noted He was not able to get his follow up labs done recently although he did have some labs done a few months ago after his last visit He was seen by Sleep Medicine at [facility] recently (referred by cardiology) and was supposed to get a home sleep study done but states that he could not access his voicemail and does not know what phone number to call back 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 [facility] Medical History (Updated 04/14/24 @ 15:14 by Jay Cavazos MD) Anxiety Depression Impaired fasting glucose Overweight (BMI 25.0-29.9) Bipolar disorder GERD (gastroesophageal reflux disease) Degenerative disc disease, cervical Lumbar disc herniation with radiculopathy Pure hypercholesterolemia Atrial fibrillation Benign essential hypertension Severe aortic stenosis Surgical History Hx of hand surgery Hx of colonoscopy History of pacemaker H/O aortic valve replacement Family History Father Brain cancer Mother Cancer Brother Colon cancer Other Mental health problem Substance abuse Social History Housing: House Alcohol intake: current Alcohol intake frequency: a few times a week Alcohol type: beer Patient Tobacco Use Status: Former Tobacco user e-Cigarette/Vaping Use: Never Used Second Hand Smoke Exposure: No Substance Use Type: Marijuana service: No Current occupational status: employed 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 Cecilio Fritz, Yakelin Cerrato, Jared Kruger and colleagues, with an educational juan from [employer]. Review of Systems Const Denies chills, Denies fatigue, Denies fever(s) and Denies headache(s) ENT Denies dysphagia, Denies dizziness, Denies otalgia, Denies headache(s), Denies neck pain, Denies odynophagia and Denies sore throat Card Denies chest pain, Denies palpitations and Denies dyspnea Resp Denies chest congestion, Denies cough and Denies dyspnea GI Denies abdominal pain, Denies constipation, Denies dysphagia, Denies heartburn, Denies diarrhea, Denies nausea, Denies odynophagia and Denies vomiting Denies dysuria, Denies nocturia and Denies urinary frequency Musc Reports back pain, Reports arthralgias (right shoulder; left hip, especially when walking), Denies neck pain, Denies numbness and Denies tingling Skin/Breast Denies rash Neuro Denies dizziness, Denies headache(s), Denies numbness and Denies tingling Psych Denies anxiety and Denies depression Endo Denies fatigue and Denies palpitations Physical exam (Primary Care) Vital Signs: Last Vital Signs Pulse 60 04/14/24 14:24 BP 138/86 04/14/24 14:24 Pulse Ox 98 04/14/24 14:24 Oxygen Delivery Method Room Air 04/14/24 14:24 BMI result Body Mass Index 27.2 Tobacco/Smoking Status: Tobacco use Status Tobacco use date assessed 10/13/23 04/14/24 14:25 Patient Tobacco Use Status Former Tobacco user 04/14/24 14:25 e-Cigarette/Vaping Use Never Used 04/14/24 14:25 Thrive Assessment: Date of Thrive Assessment Date Thrive assessed 10/13/23 04/14/24 14:25 Const General: no acute distress and alert HENMT Ears: TM's normal bilaterally and EAC's normal Throat: Yes posterior oropharynx normal and Yes tonsils normal (no TP congestion noted) Neck Neck: Yes no lymphadenopathy and Yes supple Thyroid: Thyroid normal Resp Auscultation: clear to auscultation bilaterally, no rales and no wheezes Cardio Rate: regular rate Rhythm: regular rhythm Heart sounds: no murmurs GI Palpation (GI): Soft to palpation and nontender Auscultation: normal bowel sounds General: Yes no CVA tenderness Back/Spine/Pelvis Back: no CVA tenderness Thoracic/Lumbar Spine: lumbar spinal tenderness (chronic) Skin Rashes: no rashes Extrem General: Yes no clubbing, cyanosis or edema Results Reviewed Results Reviewed: Laboratory Tests 10/28/23 01/21/24 09:35 08:47 WBC 6.5 Hgb 14.4 Hct 41.7 L Plt Count 271 Sodium 137 Potassium 4.1 Creatinine 0.85 Estimated GFR > 60 Fasting Glucose 106 H Hemoglobin A1c % 5.6 Calcium 10.3 H D AST 30 ALT 19 Triglycerides 41 Cholesterol 144 LDL Cholesterol, Calc 61 HDL Cholesterol 75 25-OH Vitamin D Total 45.9 TSH 1.29 Ur Specific Amma 1.015 Urine Protein 30 (1+) H Urine Glucose (UA) Negative Urine Blood Moderate (2+) H Urine Nitrite Negative Ur Leukocyte Esterase Negative Valproic Acid 48.6 L Coding Level of Care Code Est Pt Level 4 (02255) Diagnoses Benign essential hypertension I10 Pure hypercholesterolemia E78.00 Atrial fibrillation, unspecified type I48.91 Atrial fibrillation type: unspecified Severe aortic stenosis I35.0 S/P AVR (aortic valve replacement) Z95.2 Impaired fasting glucose R73.01 Lumbar disc herniation with radiculopathy M51.16 Degenerative disc disease, cervical M50.30 Squamous cell carcinoma of skin of right lower extremity C44.722 Gastroesophageal reflux disease without esophagitis K21.9 Esophagitis presence: without esophagitis Bipolar affective disorder, current episode mixed, current episode severity unspecified F31.60 Active/Remission status: currently active Current bipolar episode type: mixed Current episode severity: unspecified Overweight (BMI 25.0-29.9) E66.3 Assessment & Plan Assessment & Plan (1) Benign essential hypertension: Code(s): I10 - Essential (primary) hypertension Category: Medical Plan: Reinforced low-sodium diet - goal is systolic BP of 120 to 130 mm or less Continue Lisinopril 40 mg QD Patient is reminded to continue monitoring his blood pressure regularly (2) Pure hypercholesterolemia: Code(s): E78.00 - Pure hypercholesterolemia, unspecified Category: Medical Plan: He was again not able to get his follow up labs done recently although he did get his previous labs done a month or two after his last visit Reinforced low cholesterol diet Continue Atorvastatin 40 mg QD Will recheck his labs and fasting lipids in 6 months for follow-up - he is reminded again to try getting these done JUST BEFORE his next appointment so we are not always trying to play catch up with his labs (3) Atrial fibrillation: Comment: S/P STEPHANIE cardioversion in June 2019 and presently has a defibrillator in place on his left upper chest wall Code(s): I48.91 - Unspecified atrial fibrillation Category: Medical Qualifiers: Atrial fibrillation type: unspecified Qualified Code(s): I48.91 - Unspecified atrial fibrillation Plan: Patient is currently still in sinus rhythm Continue Diltiazem ER 240 mg QD; continue Eliquis 5 mg BID for thromboembolism prophylaxis Follow-up with cardiology as scheduled He was referred by cardiology for evaluation for KALYA - he was seen by Sleep Medicine and recommended to get a home sleep study, which he has not been able to do yet Have advised patient to reach out to the Sleep Lab at [facility] regarding this (4) Severe aortic stenosis: Comment: S/P AVR with bioprosthetic valve in June 2019 Code(s): I35.0 - Nonrheumatic aortic (valve) stenosis Category: Medical Plan: RESOLVED - S/P AVR in 06/2019 with no acute issues since He was not able to complete his cardiac rehab a few years ago due to the COVID-19 pandemic but states that he went back to work shortly afterwards with no problems and he has been back to his baseline level of functioning for the past few years now Follow-up with cardiac surgeon as scheduled or as needed (5) S/P AVR (aortic valve replacement): Code(s): Z95.2 - Presence of prosthetic heart valve Category: Surgical Plan: S/P AVR on 07/03/2019 at [facility] - is currently doing well (6) Impaired fasting glucose: Code(s): R73.01 - Impaired fasting glucose Category: Medical Plan: FBS was slightly elevated at 106 mg/dl but his HgbA1c was normal at 5.6% when previously checked in October 2023 Reinforced low calorie diet/exercise as tolerated (7) Lumbar disc herniation with radiculopathy: Code(s): M51.16 - Intervertebral disc disorders with radiculopathy, lumbar region Category: Medical Plan: Reinforced activity and weight lifting restrictions to avoid aggravating his low back pain He has been getting injections into his lower back at [facility] with (+) significant improvement of his low back pain Continue OTC Tylenol as needed for pain and Tylenol # 3 only as needed for severe pain (8) Degenerative disc disease, cervical: Code(s): M50.30 - Other cervical disc degeneration, unspecified cervical region Category: Medical Plan: Patient states that his neck pains remain adequately controlled on his current Rx (9) Squamous cell carcinoma of skin of right lower extremity: Comment: around the right ankle area Code(s): C44.722 - Squamous cell carcinoma of skin of right lower limb, including hip Category: Medical Plan: S/P surgical excision by [facility] back in September 2023 Follow up with dermatology as scheduled (10) GERD (gastroesophageal reflux disease): Code(s): K21.9 - Gastro-esophageal reflux disease without esophagitis Category: Medical Qualifiers: Esophagitis presence: without esophagitis Qualified Code(s): K21.9 - Gastro-esophageal reflux disease without esophagitis Plan: Dietary restrictions reinforced He takes OTC Tums or OTC Prilosec 20 mg QD as needed when his symptoms flare up (11) Bipolar disorder: Code(s): F31.9 - Bipolar disorder, unspecified Category: Medical Qualifiers: Active/Remission status: currently active Current bipolar episode type: mixed Current episode severity: unspecified Qualified Code(s): F31.60 - Bipolar disorder, current episode mixed, unspecified Plan: Continue Zyprexa 10 mg daily at bedtime and Depakote ER 500 mg twice a day Follow up with psychiatry as scheduled (12) Overweight (BMI 25.0-29.9): Code(s): E66.3 - Overweight Category: Medical Plan: Reinforced diet/exercise as tolerated/lose weight Plan Follow up in 6 months Orders: Orders Complete Blood Count Auto Diff 6 Months D64.9 - Anemia, unspecified Vitamin D 25-OH Total 6 Months E55.9 - Vitamin D deficiency, unspecified Comprehensive [place]. Panel Fast 6 Months E78.00 - Pure hypercholesterolemia, unspecified Lipid Panel 6 Months E78.00 - Pure hypercholesterolemia, unspecified TSH reflex Free T4 6 Months E78.00 - Pure hypercholesterolemia, unspecified UA CC w/rflx Micro + Cult 6 Months R30.0 - Dysuria
== END 2024-04-14 14:58 | disposition home or self-care (01) ==
PROVIDERS: PCP Internal Medicine; Visit Provider Internal Medicine
DX: I10 Essential (primary) hypertension (principal); E78.00 Pure hypercholesterolemia, unspecified; I48.91 Unspecified atrial fibrillation; F31.60 Bipolar disorder, current episode mixed, unspecified; I35.0 Nonrheumatic aortic (valve) stenosis; Z95.2 Presence of prosthetic heart valve; R73.01 Impaired fasting glucose; M51.16 Intervertebral disc disorders with radiculopathy, lumbar region; M50.30 Other cervical disc degeneration, unspecified cervical region; C44.722 Squamous cell carcinoma of skin of right lower limb, including hip; K21.9 Gastro-esophageal reflux disease without esophagitis; E66.3 Overweight

== ENCOUNTER → 2024-04-14 14:18 | Outpatient (BNVA) | payer OTHER, SELFPAY | PROVIDERS: PCP Internal Medicine; Visit Provider Internal Medicine ==

== ENCOUNTER 2024-07-19 07:32 | Day surgery (SDC) | payer OTHER, SELFPAY ==
[2024-07-17 14:17] VITALS: BMI 27.5
--- NOTE | 2024-07-18 08:35 | HO.ANESPROP2 ---
Documented by User: eMly Deras NP 07/18/24 08:43 HPI - Anesthesia Eval Consult details Narrative: 64yo M for Colonoscopy with anitbiotics Follows [facility] Cardiology for: s/p AVR 2019 pacer in situ PAF on bekah [facility] Active Problems Active Problems: All Active Problems Sore on ankle (Acute) Left thigh pain (Acute) Pain, dental (Acute) Annual physical exam (Acute) Colon cancer screening (Acute) Fatigue (Acute) Daytime somnolence (Acute) Left hip pain (Acute) S/P AVR (aortic valve replacement) (Acute) Impaired fasting glucose (Acute) Overweight (BMI 25.0-29.9) (Acute) Bipolar disorder (Acute) GERD (gastroesophageal reflux disease) (Acute) Degenerative disc disease, cervical (Acute) Lumbar disc herniation with radiculopathy (Acute) Pure hypercholesterolemia (Acute) Atrial fibrillation (Acute) Benign essential hypertension (Acute) Past Medical History Medical History Anxiety Depression Impaired fasting glucose Overweight (BMI 25.0-29.9) Bipolar disorder GERD (gastroesophageal reflux disease) Degenerative disc disease, cervical Lumbar disc herniation with radiculopathy Pure hypercholesterolemia Atrial fibrillation Benign essential hypertension Severe aortic stenosis Family History Family History Father Brain cancer Mother Cancer Brother Colon cancer Other Mental health problem Substance abuse Family history of problems with anesthesia: No Surgical History Surgical History Hx of hand surgery Hx of colonoscopy History of pacemaker H/O aortic valve replacement History of Problems with Anesthesia: No Social History Social History Housing: House Alcohol intake: current Alcohol intake frequency: a few times a week Alcohol type: beer Patient Tobacco Use Status: Former Tobacco user e-Cigarette/Vaping Use: Never Used Second Hand Smoke Exposure: No Use of substances other than those prescribed or required for medical reasons: Yes Substance Use Type: Marijuana Substance Use Type Other:: last smoked 07/18 Are you DNR?: No Advance Directives: No Advance Directives Information Provided: Yes service: No Current occupational status: employed 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 Cognitive needs: No Hearing needs: No Vision needs: No Meds Allergies Allergy/AdvReac Type Severity Reaction Status Date / Time bee pollen [bee stings] Allergy Unknown Verified 04/14/24 14:53 Home Medications ?Medication ?Instructions ?Recorded ?Confirmed ?Last Taken ?Type finasteride 5 mg tablet 5 mg PO DAILY 03/20/20 07/17/24 Unknown History olanzapine 10 mg tablet 10 mg PO BEDTIME 03/20/20 07/17/24 Unknown History divalproex 500 mg tablet,extended 500 mg PO BID 03/24/20 07/17/24 07/19/24 06:00 History release 24 hr (Depakote ER) aspirin 81 mg tablet,delayed 81 mg PO DAILY 07/23/20 07/17/24 Unknown History release diltiazem HCl 240 mg capsule,24 240 mg PO DAILY 03/25/21 07/17/24 07/19/24 06:00 History hr,extended release lisinopril 40 mg tablet 40 mg PO DAILY 07/29/21 07/17/24 Unknown History atorvastatin 40 mg tablet 40 mg PO DAILY 02/09/22 07/17/24 Unknown History apixaban 5 mg tablet (Eliquis) 5 mg PO BID 12/29/22 07/17/24 07/15/24 History docusate sodium 100 mg capsule 100 mg PO DAILY PRN Constipation 12/29/22 07/17/24 Unknown History (Colace) Exam Height,Weight and Vital Signs: Height 5 ft 7.25 in Weight 80.286 kg Narrative Narrative: ECHO 2024 1. LV size is nml. Mild conc LVH. Overall LV sys function is nml with an EF 60-65%. Grade III, severe DD with restrictive LV filling and elevated LA pressure. Suggestive nml LA pressures. Paradoxical septal motion c/w post-op status. No evidence of WMA. 2. LA mildly dilated 3. RV nml in size with nml sys function 4. Nml funtion of aortic valve 5. Mild mitral regurg 6. Mild tricuspid regurg with nml pulmo pressures 7. No pericardial effusion 8. Asc aorta measuring up to 41mm No significant change compared to previous Pacer check 10/2023 battery status ok with longevity of >9years. 0.1% AT/AF. DDD PPM within nml limits. AP 47.95%, RV paced 0.07% Assessment and Plan Assessment Anesthesia Assessment: Chart Reviewed Final Anesthetic Review Family History of Problems with Anesthesia: No History of Problems with Anesthesia: No Documented by User: Mary Trujillo MD 07/19/24 08:39 [facility] Past Medical History Medical History Anxiety Depression Impaired fasting glucose Overweight (BMI 25.0-29.9) Bipolar disorder GERD (gastroesophageal reflux disease) Degenerative disc disease, cervical Lumbar disc herniation with radiculopathy Pure hypercholesterolemia Atrial fibrillation Benign essential hypertension Severe aortic stenosis Family History Family History Father Brain cancer Mother Cancer Brother Colon cancer Other Mental health problem Substance abuse Surgical History Surgical History Hx of hand surgery Hx of colonoscopy History of pacemaker H/O aortic valve replacement Social History Social History Housing: House Alcohol intake: current Alcohol intake frequency: a few times a week Alcohol type: beer Patient Tobacco Use Status: Former Tobacco user e-Cigarette/Vaping Use: Never Used Second Hand Smoke Exposure: No Use of substances other than those prescribed or required for medical reasons: Yes Substance Use Type: Marijuana Substance Use Type Other:: last smoked 07/18 Are you DNR?: No Advance Directives: No Advance Directives Information Provided: Yes service: No Current occupational status: employed 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 Cognitive needs: No Hearing needs: No Vision needs: No Meds Allergies Allergy/AdvReac Type Severity Reaction Status Date / Time bee pollen [bee stings] Allergy Unknown Verified 04/14/24 14:53 Home Medications ?Medication ?Instructions ?Recorded ?Confirmed ?Last Taken ?Type finasteride 5 mg tablet 5 mg PO DAILY 03/20/20 07/17/24 Unknown History olanzapine 10 mg tablet 10 mg PO BEDTIME 03/20/20 07/17/24 Unknown History divalproex 500 mg tablet,extended 500 mg PO BID 03/24/20 07/17/24 07/19/24 06:00 History release 24 hr (Depakote ER) aspirin 81 mg tablet,delayed 81 mg PO DAILY 07/23/20 07/17/24 Unknown History release diltiazem HCl 240 mg capsule,24 240 mg PO DAILY 03/25/21 07/17/24 07/19/24 06:00 History hr,extended release lisinopril 40 mg tablet 40 mg PO DAILY 07/29/21 07/17/24 Unknown History atorvastatin 40 mg tablet 40 mg PO DAILY 02/09/22 07/17/24 Unknown History apixaban 5 mg tablet (Eliquis) 5 mg PO BID 12/29/22 07/17/24 07/15/24 History docusate sodium 100 mg capsule 100 mg PO DAILY PRN Constipation 12/29/22 07/17/24 Unknown History (Colace) Exam Airway Mallampati Class: II TM Dist: >3cm Neck ROM: Full Heart: afib Lungs: cta Assessment and Plan Assessment Anesthesia Assessment: Anesthesia Plan Discussed Final Anesthetic Review NPO: Yes ASA Class: III Final Preanesthetic Review: No Changes in Pt Med Stat, Meds/Allgs Chart Reviewed, Consent Obtained/Reviewed and Anes Risks/Benef Reviewed Patient Risk: Intermediate Procedure Risk: Low Anesthetic Plan Anesthetic Plan: MAC: Disposition: Standard PACU
[2024-07-19] MEDS: Lactated Ringers 1,000 ML 100 ML IVCONT (08:20)
[2024-07-19] MEDS: Ampicillin Sodium 2 GM in 0.9 % Sodium Chloride 100 ML IV (08:30)
[2024-07-19 08:32] VITALS: BP 158/84; PULSE 60; RESP 16; TEMP 36.5; O2SAT 99; BMI 25.8
[2024-07-19] MEDS: Gentamicin Sulfate/NaCl 80 MG/100 ML PIGGYBACK 100 MG IV (08:46)
[2024-07-19 10:00] VITALS: BP 107/74; PULSE 63; RESP 16; TEMP 36.7; O2SAT 97
--- NOTE | 2024-07-19 10:03 | PM.OP ---
Brief Operative Note Date of Service: 07/19/24 Pre-op diagnosis: Screening Post-op diagnosis: other (Polyps) Procedure: Colonoscopy to the cecum with hot snare polypectomy x 2 with placement of 2 Resolution clips on each site, and biopsies Surgeon: Cecilio Ray MD Anesthesia: MAC Was an Production Stage Manager used for this Procedure?: No Estimated blood loss (mL): 2.0 Pathology: other (A. Ascending colon polyp B. Site of previous polypectomy in area of Hepatic Flexure. C. Transverse colon polyp) Condition: stable Disposition: PACU
[2024-07-19 10:10] VITALS: BP 127/74; PULSE 64; RESP 14; O2SAT 97
[2024-07-19 10:20] VITALS: BP 134/83; PULSE 64; RESP 21; O2SAT 100
--- NOTE | 2024-07-19 10:57 | OP_ITS ---
DATE OF SERVICE: 07/19/2024 SURGEON: Cecilio Ray MD INDICATIONS: The patient presents for followup of personal history of colon polyps and family history of colon cancer. Full consent has been obtained from him for this, including risks of bleeding and perforation. PREOPERATIVE DIAGNOSIS: POSTOPERATIVE DIAGNOSIS: PROCEDURE PERFORMED: Colonoscopy to the cecum with hot snare polypectomy x2 with placement of 2 resolution clips on each polypectomy site, and biopsy. ESTIMATED BLOOD LOSS: COMPLICATIONS: ANESTHESIA: Medication used, monitored anesthesia care. ASSISTANTS: SPECIMENS: PREOPERATIVE DIAGNOSES: Personal history of tubular adenoma of the colon, and family history of colon cancer, colorectal cancer screening. POSTOPERATIVE DIAGNOSES: Personal history of tubular adenoma of the colon, and family history of colon cancer, colorectal cancer screening, colon polyps, diverticulosis, and internal hemorrhoids. DESCRIPTION OF PROCEDURE: The patient was placed in the left lateral decubitus position. The digital rectal exam revealed no abnormalities. The [place] video pediatric colonoscope was entered into the rectum and advanced easily to the cecum. Once in the cecum, I did identify normal-appearing cecal pouch with appendiceal orifice and a normal-appearing ileocecal valve. The entire cecum and ileocecal valve appeared normal. There was transillumination of light deep in the right lower quadrant. The scope was slowly withdrawn assessing all mucosal surfaces carefully. Preparation was excellent. In the ascending colon was a flat but raised approximately 10 mm polypoid lesion, which was removed by hot snare polypectomy and recovered by suction. The polypectomy site appeared clean, without any sign of residual polyp nor bleeding. I did place 2 resolution clips onto the polypectomy site with good deployment and good hemostasis. In the area of the hepatic flexure, was a scar consistent with a previous polypectomy site. There was some probable hyperplastic tissue on the scar itself, and this was biopsied and removed. In the transverse colon was an approximately 10 mm flat, but raised polypoid lesion, which was removed by hot snare polypectomy and recovered by suction. The polypectomy site appeared clean, without any sign of residual polyp nor bleeding. Two resolution clips were applied to the polypectomy site with good deployment and good hemostasis. I did not visualize any other polyps, colitis, nor angiodysplasia. There was a mild amount of sigmoid diverticulosis. In the rectum, scope was retroflexed visualizing some internal hemorrhoids, but no other pathology. The rectal mucosa appeared normal. Scope was straightened and withdrawn from the patient. He tolerated the procedure well and was returned to the recovery area in stable condition. IMPRESSION: 1. Colon polyps. 2. Diverticulosis. 3. Internal hemorrhoids. PLAN: The results of the pathology will be checked. I would recommend a repeat colonoscopy in 3 years for further screening and surveillance. He was advised to resume his Eliquis tomorrow. He did receive IV antibiotics prior to the procedure for his prosthetic valve as per his switch repairer's instructions and has a prescription to use amoxicillin orally later today. He would otherwise see me on a p.r.n. basis. MD NAVID Willis/THAO / [phone]
== END 2024-07-19 10:52 | disposition home or self-care (01) ==
PROVIDERS: PCP Internal Medicine; Visit Provider Internal Medicine
PROC: 0DJD8ZZ Inspection of Lower Intestinal Tract, Via Natural or Artificial Opening Endoscopic (ICD-10-PCS; CPT 45378; principal; 2024-07-19 08:30)
DX: Z12.11 Encounter for screening for malignant neoplasm of colon (principal); Z80.0 Family history of malignant neoplasm of digestive organs; Z86.0101 Personal history of adenomatous and serrated colon polyps; D12.2 Benign neoplasm of ascending colon; D12.3 Benign neoplasm of transverse colon; K57.30 Diverticulosis of large intestine without perforation or abscess without bleeding; K64.8 Other hemorrhoids; I10 Essential (primary) hypertension; I48.91 Unspecified atrial fibrillation; Z95.0 Presence of cardiac pacemaker; Z95.2 Presence of prosthetic heart valve; F41.8 Other specified anxiety disorders; Z79.01 Long term (current) use of anticoagulants; Z79.82 Long term (current) use of aspirin; Z79.899 Other long term (current) drug therapy; Z98.890 Other specified postprocedural states
CPT/HCPCS: 45385; 88305; J0290; J1580; J2704

== ENCOUNTER 2024-10-17 14:33 | Outpatient (AMB) | payer OTHER, SELFPAY ==
--- OUTSIDE RECORDS SUMMARY | 2024-10-17 14:35 | XMS_ITS ---
Author Organization [facility] Address [address] [place] [address] Care Team Providers Care Electronic Resources Librarian Name Role Phone Dirk AMOS, [place] Primary Care Provider Unava Cecilio Epps [phone] REASON FOR VISIT screening, hx polyps,fam hx colon ca Encounters Encounter Location Date Provider Diagnosis [facility] [facility] [address] [place], [place] [id number] 07/19/2024 Cecilio Cory Colon cancer scree consuelo Z12.11 ; Personal [...] Progress Notes * HALLIE FLEMING EDOB: [birth year] (64 yo M)Acc No.[id number]:07/19/2024 COLON WITH MAC Patient:?HALLIE FLEMING Provider:?Cecilio Ray MD :1960???Age:64 Y???Sex:Male Omar e:07/19/2024 Address:[address] [place] [place], [place] Pcp:Jay Cavazos MD Subjective: * Chief Complaints: * ???1. Screening, hx polyps,f am hx colon ca. * Medical History:? Objective: * Vitals:? Assessment: * Assessment: 1.?Colon cancer screening - Z12.11 (Primary)???2.?Personal history of colonic polyps - Z86.0100???3.?Family history of colon cancer - Z80.0???4.?Colon polyps - K63.5???5.?Diverticulosis of large intestine without perforation or abscess without bleeding - K57.30??? Plan: * Treatment: * Procedure Codes:?57841 LESIO N REMOVAL COLONOSCOPY, 50093 COLONOSCOPY AND BIOPSY, Modifiers: 59 * * The named appointment provid er may or may not be the originator of this progress note, and it is not deemed complete until electronically signed by the appointment provider. Sign off status: Pending * Provider:?Cecilio Ray MD Date:? 025 Generated for Mega de león/Be/eTmarcianosmitting on:?10/17/2024 02:35 PM EDT
[2024-10-17 14:36] VITALS: BP 110/72; PULSE 59; O2SAT 95; BMI 27.0
--- NOTE | 2024-10-17 14:36 | A.OFFPC_ITS ---
Vital Signs 10/17/24 14:36 Height 5 ft 7.25 in Weight 174 lb BMI 27.0 BP 110/72 Blood Pressure Location Lt brachial Position Sitting Pulse 59 Pulse Source Pulse Oximeter Pulse Oximetry (%) 95 Oxygen Delivery Method Room Air Intake Visit Reasons: 6 Months f/u Bone Crusher Required: No Accompanied by: Self / Same As Patient Allergies bee pollen [bee stings] Allergy (Verified 10/17/24 15:07) Unknown Medication List - Last Reconciled 10/17/24 by Jay Cavazos MD acetaminophen-codeine 300-30 mg 1 tab PO TID PRN 7 days amoxicillin 2,000 mg (4 x 500 mg) PO ONCE 1 day apixaban (Eliquis) 5 mg PO BID atorvastatin 40 mg PO DAILY diltiazem HCl ER 240 mg PO DAILY divalproex ER (Depakote ER) 500 mg PO BID docusate sodium (Colace) 100 mg PO DAILY PRN finasteride 5 mg PO DAILY gabapentin 400 mg PO TID lisinopril 40 mg PO DAILY olanzapine 10 mg PO BEDTIME Tobacco use date assessed: 10/17/24 Fall risk assessment: No Falls in past year Last assessed Fall Risk: 10/17/24 Dental Screening Dental Screen Date: 10/17/24 Did you have a dental visit in the last 12 months?: Yes Did you have a dental problem in the last 6 months where you did not have access to dental care?: No Was dental information given to patient?: Patient has dentist HPI 6 Months f/u HPI Details Patient comes in today for his follow up visit States that he feels okay He denies any headaches or dizziness Denies any chest pains, no increased SOB No nausea/vomiting, no abdominal pain No change in bowel habits noted He is again not able to get his follow up labs done prior to his appointment today [facility] Medical History Anxiety Depression Impaired fasting glucose Overweight (BMI 25.0-29.9) Bipolar disorder GERD (gastroesophageal reflux disease) Degenerative disc disease, cervical Lumbar disc herniation with radiculopathy Pure hypercholesterolemia Atrial fibrillation Benign essential hypertension Severe aortic stenosis Surgical History Hx of hand surgery Hx of colonoscopy History of pacemaker H/O aortic valve replacement Family History Father Brain cancer Mother Cancer Brother Colon cancer Other Mental health problem Substance abuse Social History Housing: House Alcohol intake: current Alcohol intake frequency: a few times a week Alcohol type: beer Patient Tobacco Use Status: Former Tobacco user e-Cigarette/Vaping Use: Never Used Second Hand Smoke Exposure: No Substance Use Type: Marijuana service: No Current occupational status: employed 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 1. Little interest or pleasure in doing things: not at all 2. Feeling down, depressed, or hopeless: not at all 3. Trouble falling or staying asleep, or sleeping too much: not at all 4. Feeling tired or having little energy: not at all 5. Poor appetite or overeating: not at all 6. Feeling bad about yourself - or that you are a failure or have let yourself or your family down: not at all 7. Trouble concentrating on things, such as reading the newspaper or watching television: not at all 8. Moving or speaking so slowly that other people could have noticed. Or the opposite - being so fidgety or restless that you have been moving around a lot more than usual: not at all 9. Thoughts that you would be better off or of hurting yourself in some way: not at all Total score: 0 Depression Screening Interpretation: Negative Depression Screening Done: Yes 99792 - PHQ-9 Billing: Yes Source: Developed by Drs. Cecilio Fritz, Yakelin Cerrato, Jared Kruger and colleagues, with an educational juan from [employer]. Thrive Questionnaire Date Thrive assessed: 10/17/24 I am a: Patient What is your living situation today?: I have a steady place to live Within the past 12 months, did the food you bought not last and you didn't have the money to get more?: Never true Within the past 12 months, did you worry whether your food would run out before you got money to buy more?: Never true Do you have trouble paying for medicines?: I choose not to answer this question Do you have trouble getting transportation to medical appointments?: No Do you have trouble paying your heating and electricity bill?: I choose not to answer this question Do you have trouble taking care of your child, family member or friend?: No Do you have trouble with day-to-day activities such as bathing, preparing meals, shopping, managing finances, etc.?: No Are you currently unemployed and looking for a job?: No Are you interested in more education?: No Please select the resources that you would like help with: None Currently or been in a relationship where the following occur: No concerns reported THRIVE Score: 0 AUDIT C Alcohol Use Questionnaire (AUDIT-C) 1. How often do you have a drink containing alcohol?: 4 or more times a week 2. How many drinks containing alcohol do you have on a typical day when you are drinking?: 1 or 2 3. How often do you have six or more drinks on one occasion?: Never Total Score: 4 Score Reviewed/Action Taken: Yes ELIZABET-7 AMB Questionnaire ELIZABET-7 Date ELIZABET - 7 assessed: 10/17/24 Feeling nervous, anxious, or on edge: 0 = Not at all Not being able to stop or control worryin = Not at all Worrying too much about different things: 0 = Not at all Trouble relaxin = Not at all Being so restless that it is hard to sit still: 0 = Not at all Becoming easily annoyed or irritable: 0 = Not at all Feeling afraid as if something awful might happen: 0 = Not at all Total ELIZABET-7 score (0-4 normal; 5-9 mild; 10-14 moderate; 15-21 severe): 0 Source: Developed by Drs. Cecilio Fritz, Yakelin Cerrato, Jared Kruger and colleagues, with an educational juan from [employer]. Review of Systems Const Denies chills, Denies fatigue, Denies fever(s) and Denies headache(s) ENT Denies dysphagia, Denies dizziness, Denies otalgia, Denies headache(s), Denies neck pain, Denies odynophagia and Denies sore throat Card Denies chest pain, Denies palpitations and Denies dyspnea Resp Denies chest congestion, Denies cough and Denies dyspnea GI Denies abdominal pain, Denies constipation, Denies dysphagia, Denies heartburn, Denies diarrhea, Denies nausea, Denies odynophagia and Denies vomiting Denies dysuria, Denies nocturia and Denies urinary frequency Musc Reports back pain, Reports arthralgias (right shoulder; left hip, especially when walking), Denies neck pain, Denies numbness and Denies tingling Skin/Breast Denies rash Neuro Denies dizziness, Denies headache(s), Denies numbness and Denies tingling Psych Denies anxiety and Denies depression Endo Denies fatigue and Denies palpitations Physical exam (Primary Care) Vital Signs: Last Vital Signs Pulse 59 10/17/24 14:36 BP 110/72 10/17/24 14:36 Pulse Ox 95 10/17/24 14:36 Oxygen Delivery Method Room Air 10/17/24 14:36 BMI result Body Mass Index 27.0 Tobacco/Smoking Status: Tobacco use Status Tobacco use date assessed 10/17/24 10/17/24 14:45 Patient Tobacco Use Status Former Tobacco user 10/17/24 14:45 e-Cigarette/Vaping Use Never Used 10/17/24 14:45 PHQ-9: PHQ-9 Score PHQ-9: Total score 0 10/17/24 15:14 Depression Screening Interpretation: Negative Thrive Assessment: Date of Thrive Assessment Date Thrive assessed 10/17/24 10/17/24 14:45 Currently or been in a relationship where the following occur: No concerns reported Const General: no acute distress and alert HENMT Ears: TM's normal bilaterally and EAC's normal Throat: Yes posterior oropharynx normal and Yes tonsils normal (no TP congestion noted) Neck Neck: Yes no lymphadenopathy and Yes supple Thyroid: Thyroid normal Resp Auscultation: clear to auscultation bilaterally, no rales and no wheezes Cardio Rate: regular rate Rhythm: regular rhythm Heart sounds: no murmurs GI Palpation (GI): Soft to palpation and nontender Auscultation: normal bowel sounds General: Yes no CVA tenderness Back/Spine/Pelvis Back: no CVA tenderness Thoracic/Lumbar Spine: lumbar spinal tenderness (chronic) Skin Rashes: no rashes Extrem General: Yes no clubbing, cyanosis or edema Coding Level of Care Code Est Pt Level 4 (18512) Diagnoses Benign essential hypertension I10 Pure hypercholesterolemia E78.00 Atrial fibrillation, unspecified type I48.91 Atrial fibrillation type: unspecified Severe aortic stenosis I35.0 S/P AVR (aortic valve replacement) Z95.2 Impaired fasting glucose R73.01 Lumbar disc herniation with radiculopathy M51.16 Degenerative disc disease, cervical M50.30 Squamous cell carcinoma of skin of right lower extremity C44.722 Gastroesophageal reflux disease without esophagitis K21.9 Esophagitis presence: without esophagitis Bipolar affective disorder, current episode mixed, current episode severity uns pecified F31.60 Active/Remission status: currently active Current bipolar episode type: mixed Current episode severity: unspecified Overweight (BMI 25.0-29.9) E66.3 Additional Codes PHQ-9 - 98978 - PHQ-9 Billing: Yes ([id number]) Assessment & Plan Assessment & Plan (1) Benign essential hypertension: Code(s): I10 - Essential (primary) hypertension Category: Medical Plan: Reinforced low-sodium diet - goal is systolic BP of 120 to 130 mm or less Continue Lisinopril 40 mg QD Patient is reminded to continue monitoring his blood pressure regularly (2) Pure hypercholesterolemia: Code(s): E78.00 - Pure hypercholesterolemia, unspecified Category: Medical Plan: He was again not able to get his follow up labs done prior to his appointment today - states that he will try to go and get these done LUISA Reinforced low cholesterol diet Continue Atorvastatin 40 mg QD Will have patient recheck his labs and fasting lipids again in 6 months for follow-up (3) Atrial fibrillation: Comment: S/P STEPHANIE cardioversion in June 2019 and presently has a defibrillator in place on his left upper chest wall Code(s): I48.91 - Unspecified atrial fibrillation Category: Medical Qualifiers: Atrial fibrillation type: unspecified Qualified Code(s): I48.91 - Unspecified atrial fibrillation Plan: Patient is currently still in sinus rhythm Continue Diltiazem ER 240 mg QD; continue Eliquis 5 mg BID for thromboembolism prophylaxis Follow-up with cardiology as scheduled He was referred by cardiology for evaluation for KAYLA - he was seen by Sleep Medicine and recommended to get a home sleep study, which he has not been able to do yet Have advised patient to reach out to the Sleep Lab at [facility] regarding this (4) Severe aortic stenosis: Comment: S/P AVR with bioprosthetic valve in June 2019 Code(s): I35.0 - Nonrheumatic aortic (valve) stenosis Category: Medical Plan: RESOLVED - S/P AVR in 06/2019 with no acute issues since He was not able to complete his cardiac rehab a few years ago due to the COVID- 19 pandemic but states that he went back to work shortly afterwards with no problems and he has been back to his baseline level of functioning for the past few years now Follow-up with cardiac surgeon as scheduled or as needed (5) S/P AVR (aortic valve replacement): Code(s): Z95.2 - Presence of prosthetic heart valve Category: Surgical Plan: S/P AVR on 07/03/2019 at [facility] - is currently doing well (6) Impaired fasting glucose: Code(s): R73.01 - Impaired fasting glucose Category: Medical Plan: FBS was slightly elevated at 106 mg/dl but his HgbA1c was normal at 5.6% when previously checked in October 2023 Reinforced low calorie diet/exercise as tolerated (7) Lumbar disc herniation with radiculopathy: Code(s): M51.16 - Intervertebral disc disorders with radiculopathy, lumbar region Category: Medical Plan: Reinforced activity and weight lifting restrictions to avoid aggravating his low back pain He has been getting injections into his lower back at [facility] with (+) significant improvement of his low back pain Continue OTC Tylenol as needed for pain and Tylenol # 3 only as needed for severe pain (8) Degenerative disc disease, cervical: Code(s): M50.30 - Other cervical disc degeneration, unspecified cervical region Category: Medical Plan: Patient states that his neck pains remain adequately controlled on his current Rx (9) Squamous cell carcinoma of skin of right lower extremity: Comment: around the right ankle area Code(s): C44.722 - Squamous cell carcinoma of skin of right lower limb, including hip Category: Medical Plan: S/P surgical excision by [facility] back in September 2023 Follow up with dermatology as scheduled for continuing surveillance (10) GERD (gastroesophageal reflux disease): Code(s): K21.9 - Gastro-esophageal reflux disease without esophagitis Category: Medical Qualifiers: Esophagitis presence: without esophagitis Qualified Code(s): K21.9 - Gastro-esophageal reflux disease without esophagitis Plan: Dietary restrictions reinforced He takes OTC Tums or OTC Prilosec 20 mg QD as needed when his symptoms flare up (11) Bipolar disorder: Code(s): F31.9 - Bipolar disorder, unspecified Category: Medical Qualifiers: Active/Remission status: currently active Current bipolar episode type: mixed Current episode severity: unspecified Qualified Code(s): F31.60 - Bipolar disorder, current episode mixed, unspecified Plan: Continue Zyprexa 10 mg daily at bedtime and Depakote ER 500 mg twice a day Follow up with psychiatry as scheduled (12) Overweight (BMI 25.0-29.9): Code(s): E66.3 - Overweight Category: Medical Plan: Reinforced diet/exercise as tolerated/lose weight Plan Follow up in 6 months Orders: Orders Complete Blood Count Auto Diff 6 Months D64.9 - Anemia, unspecified Comprehensive [place]. Panel Fast 6 Months E78.00 - Pure hypercholesterolemia, unspecified Hemoglobin A1c 6 Months E11.9 - Type 2 diabetes mellitus without complications TSH reflex Free T4 6 Months E78.00 - Pure hypercholesterolemia, unspecified UA CC w/rflx Micro + Cult 6 Months R30.0 - Dysuria Lipid Panel 6 Months E78.00 - Pure hypercholesterolemia, unspecified Vitamin D 25-OH Total 6 Months E55.9 - Vitamin D deficiency, unspecified
== END 2024-10-17 15:18 | disposition home or self-care (01) ==
LOC: HO.HMCH 14:33
PROVIDERS: PCP Internal Medicine; Visit Provider Internal Medicine
DX: I10 Essential (primary) hypertension (principal); I48.91 Unspecified atrial fibrillation; F31.60 Bipolar disorder, current episode mixed, unspecified; E78.00 Pure hypercholesterolemia, unspecified; I35.0 Nonrheumatic aortic (valve) stenosis; Z95.2 Presence of prosthetic heart valve; R73.01 Impaired fasting glucose; M51.16 Intervertebral disc disorders with radiculopathy, lumbar region; M50.30 Other cervical disc degeneration, unspecified cervical region; C44.722 Squamous cell carcinoma of skin of right lower limb, including hip; K21.9 Gastro-esophageal reflux disease without esophagitis; E66.3 Overweight

== ENCOUNTER → 2024-10-17 14:33 | Outpatient (BNVA) | payer OTHER, SELFPAY | PROVIDERS: PCP Internal Medicine; Visit Provider Internal Medicine | DX: I10 Essential (primary) hypertension (principal); E78.00 Pure hypercholesterolemia, unspecified; I48.91 Unspecified atrial fibrillation; I35.0 Nonrheumatic aortic (valve) stenosis; M51.16 Intervertebral disc disorders with radiculopathy, lumbar region; M50.30 Other cervical disc degeneration, unspecified cervical region; K21.9 Gastro-esophageal reflux disease without esophagitis; F31.60 Bipolar disorder, current episode mixed, unspecified; E66.3 Overweight; D64.9 Anemia, unspecified; E11.9 Type 2 diabetes mellitus without complications; R30.0 Dysuria; E55.9 Vitamin D deficiency, unspecified; C44.722 Squamous cell carcinoma of skin of right lower limb, including hip; Z95.2 Presence of prosthetic heart valve | CPT/HCPCS: 96127 ==

== ENCOUNTER 2024-10-23 08:23 | Outpatient (REF) | payer OTHER, SELFPAY ==
--- OUTSIDE RECORDS SUMMARY | 2024-10-23 08:32 | XMS_ITS | Data Portability ---
Author Organization [facility] Pain Managem ent, PAIN OFFICE Address [address],[facility] [address] [place] [address] Care Team Providers [place] Nurse Name Role Phone JOSEPH ZENG Primary Care Provider [phone] Assessment Encounter Date Assessment Date Assessment LastModified by Organization Details LastModified Time 03/23/2018 03/23/2018 Andrew Montoya i s a 58 year old man with low back pain radiating into left lower extremity since February 2014. On exam, he has a positive straight leg raising test on the left. Knee and ankle reflex are diminished on the left. I will order a MRI Lumbar spine to elucidate the cause of his pain. We will obtain prior authorization and call him with an appointment. He will follow up to review his MRI lumbar spine and formulate further plans. He was encouraged to continue his home exercise program. He is on Gabapentin 100 mg 2 tabs TID . I have given him a titration schedule and he is advised to increase to three tablets TID. If he is tolerating and having good pain benefit , he can switch to 300 mg capsules 1 TID. [email or web address] Not available 03/29/2018 09:46:17 04/07/2018 04/07/2018 Andrew Montoya i s a 58 year old man with low back pain radiating into left lower extremity since February 2014. On exam, he has a positive straight leg raising test on the left. Knee and ankle reflex are diminished on the left. MRI Lumbar Spine shows there has been mild progression of disc space narrowing at L2-3 and L4-5 since MRI from 2013. At L2-3 there is a new left paracentral protrusion causing mild compression of the descending left L3 nerve root. At L4-5 there is a new central protrusion with overall mild canal stenosis, slightly worse than prior. Remaining degenerative changes are stable, including severe right-sided neural foraminal stenosis at L5-S1 with compression of the exiting right L5 nerve root. I recommend a repeat Lumbar epidural steroid injections under fluoroscopic guidance . The risks and benefits of the procedure were discussed in detail. He wishes to proceed. An appointment has been booked for the same. He needs a bookmobile driver on the day of the procedure. I also recommend a neurosurgical evaluation with Dr. Felix Hagen. He had tachycardia with a heart rate of 154 and high blood pressure of 160/128. His will take him to [facility] ER. I have called [facility] ER and given transfer. [email or web address] Not available 04/07/2018 15:11:12 07/27/2018 07/27/2018 Andrew Montoya i s a 58 year old man with low back pain radiating into left lower extremity since February 2014. On exam, he has a positive straight leg raising test on the left. Knee and ankle reflex are diminished on the left. MRI Lumbar Spine shows there has been mild progression of disc space narrowing at L2-3 and L4-5 since MRI from 2013. At L2-3 there is a new left paracentral protrusion causing mild compression of the descending left L3 nerve root. At L4-5 there is a new central protrusion with overall mild canal stenosis, slightly worse than prior. Remaining degenerative changes are stable, including severe right-sided neural foraminal stenosis at L5-S1 with compression of the exiting right L5 nerve root. I recommend a repeat Lumbar epidural steroid injections under fluoroscopic guidance . The risks and benefits of the procedure were discussed in detail. He wishes to proceed. An appointment has been booked for the same. He needs a bookmobile driver on the day of the procedure. He is on Eliquis and needs to stop for three days prior to the injection per anticoagulation protocol. I have left a message with his rd lab technician, Dr. Mckeon. [email or web address] Not available 07/28/2018 16:09:50 08/09/2018 08/09/2018 Andrew Montoya i s a 58 year old man with low back pain radiating into left lower extremity . On exam, he has a positive straight leg raising test on the left. Knee and ankle reflex are diminished on the left. MRI Lumbar spine shows Moderate left neural foraminal narrowing at L3-L4. Severe right neural foraminal narrowing at L5-S1. He is here for a repeat Lumbar epidural steroid injection.The risks and benefits of the procedure were discussed in detail. He wishes to proceed. He will follow up in eight weeks He can restart Eliquis tomorrow. [email or web address] Not available 08/10/2018 08:59:25 10/06/2018 10/06/2018 Andrew Montoya i s a 58 year old man with low back pain radiating into left lower extremity . On exam, he has a positive straight leg raising test on the left. Knee and ankle reflex are diminished on the left. MRI Lumbar spine shows Moderate left neural foraminal narrowing at L3-L4. Severe right neural foraminal narrowing at L5-S1. He is here for a follow up after a repeat Lumbar epidural steroid injection. He reports good pain benefit for one week with a return of pain back to baseline . I recommend an orthopedic surgical evaluation. He will see Dr. Aldridge and can follow up after seeing him. [email or web address] Not available 10/07/2018 08:48:14 Plan of Treatment Reminders Order Date Submit Date Provider Last Modified By Organization Details Last Modified Time Details Appointments None recorded. Lab None recorded. Referral None recorded. Procedures None recorded. Surgeries None recorded. Imaging MRI, lumbar spine, w/o contrast 2017 018 [facility] ([facility] [address], [place], [address], 8 10:04:55 Medication Orders None recorded. Patient TargetsNo targets recorded. Patient Instructions Encounter Date Encounter Id Patient Instructions Last Modified By Organization Details Last Modified Time 03/23/2018 [id number] He was advised against bed rest lasting longer than four days and to continue activities as tolerated. Benefits of smoking cessation were discussed with him. [email or web address] Not available 03/29/2018 09:42:05 04/07/2018 [id number] He was advised against bed rest lasting longer than four days and to continue activities as tolerated. Benefits of smoking cessation were discussed with him. [email or web address] Not available 04/07/2018 15:07:01 07/27/2018 [id number] He was advised against bed rest lasting longer than four days and to continue activities as tolerated. Benefits of smoking cessation were discussed with him. [email or web address] Not available 07/28/2018 13:00:52 08/09/2018 [id number] He was advised against bed rest lasting longer than four days and to continue activities as tolerated. Benefits of smoking cessation were discussed with him. [email or web address] Not available 08/10/2018 08:57:13 10/06/2018 [id number] He was advised against bed rest lasting longer than four days and to continue activities as tolerated. Benefits of smoking cessation were discussed with him. [email or web address] Not available 10/07/2018 08:46:51 Reason for Referral None Reported. Results Created Date Observation Date Name Description Value Unit Range Abnormal Flag Note LastModifiedBy Organization Detail LastModifiedTime 04/04/20 18 04/01/2018 MRI, lumba r spine , w/o contr ast [facility] Access ion Number : [id number] 3.2 Patien t Name : Andrew Durant Medica l Record Number : [id number] Date of : 1959 Date of Exam : 2017 Referr ing Physic serenity : VANESSA FINK Pain Manage ment [address] [place] [address] Exam : MR - LUMBAR SPINE (C-) CPT 57596 - Room Descri ption : Carleton Siem Verio 3.0T Techni que : Sag T1 FLAIR, Sag T2,Sag STIR,T 2, Ax T1 Final Report HISTOR Y: Back pain radiat ing down the legs. COMPAR ROCCO: Lumbar spine MRI, 014. FINDIN GS: There is slight dextro scolio sis of the upper lumbar spine withou t sublux ation. Verteb ral body height s are preser trice. There is diffus e disc desicc ation from L1 to L5 with mild multil evel disc space narrow ing and anteri or osteop hyte format ion. Disc space narrow ing at L2-3 and L4-5 has mildly progre ssed 2013. Vacuum phenom enon is sugges jamaal at L5-S1. Minor Modic type I and type II endpla te change s are also seen at L5-S1. Nonspe cific small low T1/hig h STIR signal lesion in the L1 verteb ral body is unchan ged. The visual ized lower thorac ic cord is normal in calibe r and signal . The conus termin ates at L1. At L1-2 there is minima l disc bulgin g withou t signif icant canal stenos is. There is minima l bilate ral neural forami nal stenos is. At L2-3 there is diffus e disc bulgin g with superi mposed new left parace ntral protru alicia as well as mild facet spurri ng. This causes mild left-s ided canal stenos is and mild compre ssion of the descen ding left L3 nerve root. There is minima l bilate ral neural forami nal stenos is. At L3-4 there is diffus e disc bulgin g asymme tric to the left as well as facet spurri ng. This causes mild canal stenos is and crowdi ng of the bilate ral descen ding L4 nerve roots, more so on the left. There is minima l right neural forami nal stenos is. A left forami nal protru alicia is again seen causin g mild to modera te left neural forami nal stenos is and contac t of the exitin g left L3 nerve root. At L4-5 there is diffus e disc bulgin g asymme tric to the right with superi mposed new small centra l protru alicia. Manager Of Medical ior ligame ntous thicke consuelo and facet spurri ng is also noted. Overal l, this causes mild canal stenos is, slight ly worse than prior, and crowdi ng of the descen ding right L5 nerve root. There is also mild to modera te right and mild left neural forami nal stenos is. At L5-S1 there is disc osteop hyte and facet spurri ng withou t canal stenos is. Promin ent right- sided margin al osteop hyte result s in severe right neural forami nal stenos is and compre ssion of the exitin g right L5 nerve root. The left neural forame n is patent . 2.5 cm cyst is seen in the mid left kidney . Small amount of free fluid is sugges jamaal within the right pelvis , incomp letely imaged on the sagitt al STIR sequen ce (serie s 4, image 5). IMPRES ALICIA: 1. There has been mild progre ssion of disc space narrow ing at L2-3 and L4-5 since MRI from 2013. 2. At L2-3 there is a new left parace ntral protru alicia causin g mild compre ssion of the descen ding left L3 nerve root. 3. At L4-5 there is a new centra l protru alicia with overal l mild canal stenos is, slight ly worse than prior. 4. Remain ing degene rative change s are stable , includ ing severe right- sided neural forami nal stenos is at L5-S1 with compre ssion of the exitin g right L5 nerve root. 5. Small amount of free fluid is sugges jamaal within the right pelvis , incomp letely imaged and nonspe cific. Clinic al correl ation will dictat e the need for furthe r imagin g with CT. ----- PHYSIC SERENITY : DYLON RIVERA MD (Signa ture on file) 2017 [facility] ([facility] [address], [place], [address], 04/07/2018 14:45:57 04/04/20 18 04/01/2018 MRI, lumba r spine , w/o contr ast No observ ation record ed. [facility] ([facility]) [address], [place], [address], 04/07/2018 14:49:14 Result Notes None recorded. Problems Name Problem SNOMED Code Status Onset Date Resolution Date Notes Provider Name and Address Organization Details Recorded Time Lumbosacral radiculitis 95324377 Ravi rand MD [address] , [address], [place], [address], [place] [facility] 6 14:05:15 Pain of hip region 12661498 Ravi rand MD [address] , [address], [place], [address], [place] [facility] 6 14:05:15 Displacement of lumbar intervertebral disc without myelopathy [id number] Ravi rand MD [address] , [address], [place], [address], [place] [facility] 6 14:05:15 Problem Notes None recorded. Procedures Surgical History Date Name Laterality Status Provider Name and Address Organization Details Recorded Time 08/10/19 19 Lumbar Epidural steroid injection under fluoroscopic guidance completed Vanessa Salamanca MD [address] , [address], [place], [address], [place] [facility] 08/10/2018 08:58:14 02/02/20 18 Lumbar Epidural steroid injection under fluoroscopic guidance completed Vanessa Salamanca MD [address] , [address], [place], [address], [place] [facility] 02/01/2018 14:27:26 09/08/19 18 Lumbar epidural steroid injection with surface anatomy completed Vanessa Salamanca MD [address] , [address], [place], [address], [place] [facility] 09/08/2017 10:23:39 09/09/19 17 Lumbar Epidural steroid injection under fluoroscopic guidance completed Vanessa Salamanca MD [address] , [address], [place], [address], [place] [facility] 09/09/2016 15:00:25 12/10/19 16 Lumbar Epidural steroid injection under fluoroscopic guidance completed Vanessa Salamanca MD [address] , [address], [place], [address], [place] [facility] 12/10/2015 14:05:15 06/18/19 16 Lumbar Epidural steroid injection under fluoroscopic guidance completed Vanessa Salamanca MD [address] , [address], [place], [address], [place] [facility] 06/18/2015 14:27:13 11/07/19 15 Lumbar Epidural steroid injection under fluoroscopic guidance completed Vanessa Salamanca MD [address] , [address], [place], [address], [place] [facility] 11/07/2014 09:24:04 01/24/20 14 Lumbar Epidural steroid injection under fluoroscopic guidance completed Vanessa Salamanca MD [address] , [address], [place], [address], [facility] 01/24/2014 15:55:24 Other completed Roz Cortez [facility] Pain Management 12/07/2013 14:37:39 Imaging Results None recorded. Procedure Notes None recorded. Medical Equipment None Reported. Allergies Allergen ID Allergen Name Allergen Category Reaction Reaction Severity Criticality Documentation Date Start Date Code Code System Note Provider Name and Address Organization Details Recorded Time 8681 honey bee venom environme nt anaphylax is Not available Not available 12/07/2013 41981 7 RxNorm Roz cabral [facility] Pain Management 4 14:37:40 Medications Name Sig Start Date Stop Date Status Note LastModified by Organization Details LastModified Time divalproex sodium dr 500 mg tbec active Not Available Not Available Not Available hydrocodone /acetaminop hen 5-325 mgtabs active Not Available Not Available Not Available nicotine 14 mg/24 hr daily transdermal patch active Not Available Not Available Not Available azithromyci n 250 mg tablet 09/03 completed Not Available Not Available Not Available tizanidine 4 mg tablet TAKE 1 TABLET BY MOUTH EVERY 8 HOURS NEEDED 09/03 completed Not Available Not Available Not Available hydrocodone 5 mg-acetamin ophen 325 mg tablet TAKE 1 TABLET BY MOUTH EVERY 12 HOURS NEEDED FOR 30 DAYS 09/08 completed Not Available Not Available Not Available diltiazem CD 240 mg capsule,ext ended release 24 hr 07/27 completed Not Available Not Available Not Available fluconazole 200 mg tablet 09/03 completed Not Available Not Available Not Available meloxicam 15 mg tablet active Not Available Not Available Not Available lisinopril 20 mg tablet 07/27 completed Not Available Not Available Not Available thiamine HCl (vitamin B1) 100 mg tablet TAKE 1 TABLET BY MOUTH ONCE DAILY 07/27 completed Not Available Not Available Not Available diltiazem ER 240 mg capsule,24 hr,extended release 07/27 completed Not Available Not Available Not Available olanzapine 10 mg tablet TAKE 1 TABLET BY MOUTH AT BEDTIME active Not Available Not Available No t Available diltiazem CD 360 mg capsule,ext ended release 24 hr active Not Available Not Available Not Available divalproex 500 mg tablet,tevin yed release TAKE 1 TABLET BY MOUTH TWICE A DAY active Not Available Not Available No t Available tramadol 50 mg tablet active Not Available Not Available No t Available lorazepam 0.5 mg tablet 09/03 completed Not Available Not Available Not Available amlodipine 10 mg tablet active Not Available Not Available Not Available econazole nitrate 1 % topical cream 09/03 completed Not Available Not Available Not Available lisinopril 10 mg tablet active Not Available Not Available Not Available divalproex 125 mg tablet,tevin yed release active Not Available Not Available Not Available nicotine 21 mg/24 hr daily transdermal patch 07/27 completed Not Available Not Available Not Available gabapentin 300 mg capsule 1 Tab TID active Not Available Not Available No t Available folic acid 1 mg tablet 07/27 completed Not Available Not Available Not Available hydrochloro thiazide 25 mg tablet 07/27 completed Not Available Not Available Not Available gabapentin 100 mg capsule 2 tabs TID 07/27 completed Not Available Not Available Not Available finasteride 5 mg tablet TAKE 1 TABLET BY MOUTH AT BEDTIME active Not Available Not Available No t Available cyclobenzap rine 5 mg tablet 09/03 completed Not Available Not Available Not Available Pain Relief Extra Strength (acetaminop hen) 500 mg tablet TAKE 1 TABLET BY MOUTH EVERY 8 HOURS NEEDED active Not Available Not Available No t Available Boostrix Tdap 2.5 Lf unit-8 mcg-5 Lf/0.5 mL intramuscul ar suspension active Not Available Not Available N ot Available Calcium 600 + D(3) active Not Available Not Available Not Available hydrocodone 5 mg-acetamin ophen 300 mg tablet active Not Available Not Available No t Available EpiPen 2-Yasir 0.3 mg/0.3 mL injection, auto-inject or active Not Available Not Available Not Available Eliquis 5 mg tablet BID active Not Available Not Available No t Available Multi Vitamin active Not Available Not Available Not Available Afluria 45 mcg (15 mcg x 3)/0.5 mL intramuscul ar suspension TO BE ADMINISTE RED BY PHARMACIS T FOR IMMUNIZAT ION active Not Available Not Available No t Available Fluvirin 4506-2539 45 mcg (15 mcg x 3)/0.5 mL intramuscul ar suspension active Not Available Not Available N ot Available Fluvirin 5032-7110 45 mcg (15 mcg x 3)/0.5 mL intramuscul ar suspension ADM 0.5ML IM UTD 09/08 completed Not Available Not Available Not Available Vitals Date Recorded Body height Heart rate Oxygen saturation Oxygen saturation in Arterial blood by Pulse oximetry Systolic blood pressure Diastolic blood pressure Provider Name and Address Organization Details Last Updated DateTime 9 171.45 cm 70 /min 98 % 98 % 130 mm[Hg] 91 mm[Hg] Roz Cortez [place] [facility] 9 14:36:39 Date Recorded Body height Heart rate Oxygen saturation Oxygen saturation in Arterial blood by Pulse oximetry Systolic blood pressure Diastolic blood pressure Provider Name and Address Organization Details Last Updated DateTime 9 171.45 cm 78 /min 97 % 97 % 133 mm[Hg] 93 mm[Hg] Roz Cortez [place] [facility] 9 14:12:31 Date Recorded Body height Heart rate Oxygen saturation Oxygen saturation in Arterial blood by Pulse oximetry Body mass index (BMI) Body weight Systolic blood pressure Diastolic blood pressure Provider Name and Address Organization Details Last Updated DateTime 9 171.45 cm 89 /min 97 % 97 % 27.8 kg/m2 98746.6 3 g 125 mm[Hg] 89 mm[Hg] Roz Cortez [place] [facility] 9 15:38:38 Date Recorded Body height Heart rate Oxygen saturation Oxygen saturation in Arterial blood by Pulse oximetry Systolic blood pressure Diastolic blood pressure Provider Name and Address Organization Details Last Updated DateTime 8 171.45 cm 75 /min 96 % 96 % 122 mm[Hg] 98 mm[Hg] Roz Cortez [place] [facility] 8 13:27:12 Date Recorded Body height Oxygen saturation Oxygen saturation in Arterial blood by Pulse oximetry Heart rate Systolic blood pressure Diastolic blood pressure Systolic blood pressure Diastolic blood pressure Provider Name and Address Organization Details Last Updated DateTime 8 171.45 cm 98 % 98 % 154 /min 144 mm[Hg] 115 mm[Hg] 165 mm[Hg] 129 mm[Hg] Roz Cortez [place] [facility] 8 14:44:14 Social History Question Answer Notes LastModified by Organizat ion Details LastModified Time Tobacco Smoking Status Current Every Day Smoker Not Available [employer] 03/08/2020 03:16:10 Education 12 [email or web address] Information no t available 12/07/2013 Live Alone Or With Others? With Others And Daughter [email or web address] Information not available 12/07/2013 Marital Status [email or web address] Informatio n not available 12/07/2013 What Was The Date Of Your Most Recent Tobacco Screening? 10/07/2018 [id number] Information not available 03/08/2020 How Much Tobacco Do You Smoke? 1.5 PPD [id number] Information not available 03/08/2020 How Many Years Have You Smoked Tobacco? 35 [id number] Information not available 03/08/2020 Sex: Unknown Functional Status Question Answer Note LastModified by Organizat ion Details LastModified Time What is your level of alcohol consumption? Moderate [id number] Information not available 03/08/2020 Are you currently employed? 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 Family History Relationship Description Onset Age of this Age Resolved Age Notes LastModified by Organization Details LastModified Time Brother Malignant neoplastic disease Colon [email or web address] Not available 11/21 14:03:33 Medical History Condition Response Anxiety Disorder Y Bipolar Disorder Y Depression Y Asthma Y Past Encounters Encounter ID Performer Location Encounter Start Date Encounter Closed Date Diagnosis/Indication Diagnosis SNOMED-CT Code Diagnosis ICD10 Code Diagnosis Note [id number] Vanessa Salamanca MD PAIN OFFICE [address] [place] [place] [address] 12/07/2013 14:18:36 12/08/2013 09:42:04 Displacement of lumbar intervertebral disc without myelopathy 70230229 Pain of hip region 24731709 Lumbosacra l radiculitis 07298389 [id number] Vanessa Salamanca MD PAIN OFFICE [address] [facility] [place] [address] 01/04/2014 14:55:02 01/05/2014 08:07:22 Displacement of lumbar intervertebral disc without myelopathy 42830866 Pain of hip region 66143689 Lumbosacra l radiculitis 47799214 [id number] Vanessa Salamanca MD PAIN OFFICE [address] [facility] [place] [address] 01/23/2014 10:44:41 01/24/2014 15:57:13 Displacement of lumbar intervertebral disc without myelopathy 90557002 Pain of hip region 19237727 Lumbosacra l radiculitis 78462206 [id number] Vanessa Salamanca MD PAIN OFFICE [address] [facility] [place] [address] 02/28/2014 14:56:37 02/28/2014 15:46:39 Displacement of lumbar intervertebral disc without myelopathy 95888058 Pain of hip region 81495386 Lumbosacra l radiculitis 93406344 [id number] Vanessa Salamanca MD PAIN OFFICE [address] [facility] [place] [address] 11/06/2014 15:02:00 11/07/2014 11:51:38 Displacement of lumbar intervertebral disc without myelopathy 78296691 Pain of hip region 80668839 Lumbosacra l radiculitis 49731586 [id number] Vanessa Salamanca MD PAIN OFFICE [address] [facility] [place] [address] 06/18/2015 13:48:50 06/19/2015 09:11:47 Displacement of lumbar intervertebral disc without myelopathy 10162187 M51.26 Pain of hip region 63465 002 M25.552 Lumbosacra l radiculitis 97493090 M54.17 [id number] Vanessa Salamanca MD PAIN OFFICE [address] [facility] [address] 12/10/2015 13:29:42 12/11/2015 09:21:29 Lumbosacral radiculitis 92705616 M54.17 Displaceme nt of lumbar intervertebral disc without myelopathy 39203384 M51.26 Pain of hip region 27387 002 M25.552 [id number] Vanessa Salamanca MD PAIN OFFICE [address] [facility] [place] [address] 09/08/2016 11:20:22 09/09/2016 15:12:37 Lumbosacral radiculitis 00482159 M54.17 Displaceme nt of lumbar intervertebral disc without myelopathy 79054134 M51.26 Pain of hip region 51861 002 M25.552 [id number] Vanessa Salamanca MD PAIN OFFICE [address] [facility] [place] [address] 09/03/2017 08:56:07 09/03/2017 09:48:53 Lumbosacral radiculitis 96208024 M54.17 Displaceme nt of lumbar intervertebral disc without myelopathy [id number] M51.26 Pain of hip region 16305 002 M25.552 [id number] Vanessa Salamanca MD PAIN OFFICE [address] [facility] [place] [address] 09/07/2017 15:09:53 09/08/2017 10:25:46 Lumbosacral radiculitis [id number] M54.17 Displaceme nt of lumbar intervertebral disc without myelopathy 41828780 M51.26 Pain of hip region 03368 002 M25.552 [id number] Vanessa Salamanca MD PAIN OFFICE [address] [facility] [place] [address] 02/01/2018 13:56:59 02/02/2018 08:24:42 Lumbosacral radiculitis 36207995 M54.17 Displaceme nt of lumbar intervertebral disc without myelopathy 17435587 M51.26 Pain of hip region 41134 002 M25.552 [id number] Vanessa Salamanca MD PAIN OFFICE [address] [facility] [place] [address] 03/23/2018 13:16:30 03/29/2018 10:00:25 Displacement of lumbar intervertebral disc without myelopathy [id number] M51.26 Pain of hip region 40246 002 M25.552 Lumbosacra l radiculitis 82189091 M54.17 [id number] aVnessa Salamanca MD PAIN OFFICE [address] [facility] [place] [address] 04/07/2018 12:45:54 04/07/2018 15:11:59 Displacement of lumbar intervertebral disc without myelopathy [id number] M51.26 Pain of hip region 61265 002 M25.552 Lumbosacra l radiculitis 92155930 M54.17 [id number] Vanessa Salamanca MD SV PAIN OFFICE [address] [place] [address] 07/27/2018 14:25:10 07/28/2018 13:12:53 Displacement of lumbar intervertebral disc without myelopathy 54904940 M51.26 Pain of hip region 32741 002 M25.552 Lumbosacra l radiculitis 83390498 M54.17 [id number] Vanessa Salamanca MD PAIN OFFICE [address] [facility] [place] [address] 08/09/2018 13:52:50 08/10/2018 09:01:56 Lumbosacral radiculitis 63897553 M54.17 Displaceme nt of lumbar intervertebral disc without myelopathy 72697477 M51.26 Pain of hip region 53135 002 M25.552 [id number] Vanessa Salamanca MD PAIN OFFICE [address] [facility] [place] [address] 10/06/2018 15:30:06 10/07/2018 08:48:48 Lumbosacral radiculitis 50335066 M54.17 Displaceme nt of lumbar intervertebral disc without myelopathy 08298526 M51.26 Pain of hip region 03291 002 M25.552 Health Concerns Section Related Observation LastModified by Organization Detai ls LastModified Time None Recorded Concern Status LastModified by Organization Details LastModified Time None Recorded Advance Directives Directive None Recorded Payers Encounter Date Sequence Insurance Name Policy Number Policy Pedroza Covered Member ID Pedroza Member ID Guarantor Name 03/23/2018 1 [facility] [id number] 01 Andrew Courtney [id number] Andrew Courtney 04/07/2018 1 [facility] [id number] Andrew Courtney [id number] Andrew Courtney 07/27/2018 1 [facility] [id number] Andrew Courtney [id number] Andrew Courtney 08/09/2018 1 [facility] [id number] Andrew Courtney [id number] Andrew Courtney 10/06/[address] [place] [address] [id number] Andrew Courtney [id number] Andrew Fieldchanelle Notes Date Note Type Note Provider Name and Address Organization Details Recorded Time 03/23/2018 text/html He is here for a follow up. He is complaining of low back pain radiating into left lower extremity. He states his work has been very busy and he has been active. He feels the epidural steroid injections are not helping as much as they use to. His last one only lasted for one month. He has been doing stretching exercises at home with persistent pain. His last MRI was 4 years ago. Vanessa Salamanca MD [address] , [address], [place], [address], [facility] 04/04/2018 08:39:37 04/07/2018 text/html He is here for review of his MRI Lumbar spine. MRI Lumbar Spine shows there has been mild progression of disc space narrowing at L2-3 and L4-5 since MRI from 2013. At L2-3 there is a new left paracentral protrusion causing mild compression of the descending left L3 nerve root. At L4-5 there is a new central protrusion with overall mild canal stenosis, slightly worse than prior. Remaining degenerative changes are stable, including severe right-sided neural foraminal stenosis at L5-S1 with compression of the exiting right L5 nerve root.He continues to have low back pain radiating into left lower extremity with numbness. He is having difficulty climbing stairs. His heart rate today in the office is 154/min. He drove himself for today's visit. His blood pressure is 154/128 . He states he had some right sided chest pain last night. He has history of aortic stenosis and has seen Dr. Brian at [facility] and has an appointment in April 2018. Vanessa Salamanca MD [address] , [address], [place], [address], [facility] 04/09/2018 13:13:14 07/27/2018 text/html He is here for a follow up. He is complaining of low back pain radiating into right lower extremity. He has been admitted in the hospital with atrial flutter and is on Eliquis . He states he is seeing Dr. Stuart Salamanca MD [address] [facility] [address] , [address], [place], [address], [facility] - [facility] 07/29/2018 10:06:44 08/09/2018 text/html He is here for a lumbar epidural steroid injection under fluoroscopic guidance. He is on Eliquis and has stopped for three days for the procedure. aVnessa Salamanca MD [address] [facility] , [address], [place], [address], [facility] - Pain [facility] 08/11/2018 09:34:00 10/06/2018 text/html He is here for a follow up. He reports good pain relief for one week with return of pain back to baseline. He continues to have low back pain radiating into both lower extremities. He is on eliquis and had a stress test done which shows no ischemia. He is in afib. Vanessa Salamanca MD [address] [facility] , [address], [place], [address], [facility] 10/10/2018 13:27:34
[2024-10-23 10:05] LABS: MANUAL DIFF FLAG NO
[2024-10-23 10:20] LABS: Basophils Percent Auto 0.4 % (0-2); Eosinophils Percent Auto 0.6 % (0-4); Hematocrit 39.6 % (42.0-52.0); Hemoglobin 13.8 g/dl (14.0-18.0); Imm Gran Abs Auto 0.03 X10*3/uL (0.00-0.03); Imm Gran Pct Auto 0.6 % (0.0-0.4); Lymphocytes Absolute Auto 1.2 X10*3/uL (1.2-4.9); Lymphocytes Percent Auto 22.9 % (20-40); Mean Corpuscular HGB Conc 34.8 g/dl (31.0-36.0); Mean Corpuscular Hemoglobin 31.7 pg (27.0-33.0); Mean Corpuscular Volume 90.8 fL (80.0-98.0); Mean Platelet Volume 9.8 fL (9.4-12.4); Monocytes Absolute Auto 0.7 X10*3/uL (0.1-1.2); Monocytes Percent Auto 13.2 % (2-11); Neutrophils Absolute Auto 3.3 x10*3/uL (2.0-8.3); Neutrophils Percent Auto 62.3 % (45-73); Platelet Count 237 X10*3/uL (160-400); Red Blood Count 4.36 X10*6/uL (4.60-5.80); Red Cell Distribution Width 12.2 % (11.0-16.0); White Blood Count 5.3 X10*3/uL (4.8-10.8)
[2024-10-23 10:32] LABS: Appearance Urine Clear; Color Urine Yellow; Glucose Urine UA Negative (Negative); Leukocyte Esterase Urine Negative (Negative); Nitrite Urine Negative (Negative); PH 6.5 (5.0-9.0); UMIC TRIGGER UACC YES; Urine Blood Moderate (2+) (Negative); Urine Ketones Negative (Negative); Urine Protein 30 (1+) mg/dL (Neg-Trace)
[2024-10-23 10:36] LABS: Bacteria Urine None Seen (None Seen); Hyaline Casts Urine 0-2 /LPF (0-2); Squamous Epithelial Cell Urine 0-2 /HPF (0-2); WBC Urine 0-5 /HPF (0-5)
[2024-10-23 10:37] LABS: Alanine Aminotransferase 19 U/L (0-40); Albumin Level 4.2 g/dL (3.5-5.0); Alkaline Phosphatase 43 U/L (39-117); Anion Gap 11 (12-20); Aspartate Amino Transferase 33 U/L (5-37); Bilirubin Total 0.5 mg/dL (0.0-1.0); Blood Urea Nitrogen 20 mg/dL (9-16); Calcium 9.6 mg/dL (8.4-10.2); Carbon Dioxide 28 mmol/L (22-29); Chloride 99 mmol/L (96-108); Cholesterol 155 mg/dL (<200); Estimated Glomerular Filt Rate > 60; Glucose Fasting 105 mg/dL (60-99); HDL Cholesterol 78 mg/dL (>40); LDL Cholesterol Calculated 70 mg/dL (<100); Potassium 4.3 mmol/L (3.3-5.1); Sodium 134 mmol/L (135-145); Total Protein 6.6 g/dL (6.5-8.0); Triglycerides 37 mg/dL (<150)
[2024-10-23 10:57] LABS: TSH reflex Free T4 0.82 uIU/mL (0.32-4.0); Vitamin D 25-OH Total 60.9 ng/mL (>30)
== END 2024-10-23 08:24 | disposition home or self-care (01) ==
LOC: HO.HMGCLDS 08:23
PROVIDERS: PCP Internal Medicine; Visit Provider Internal Medicine
DX: D64.9 Anemia, unspecified (principal); E78.00 Pure hypercholesterolemia, unspecified; E55.9 Vitamin D deficiency, unspecified
CPT/HCPCS: 36415; 80053; 80061; 81001; 82306; 84443; 85025

== ENCOUNTER 2025-03-30 06:00 | Outpatient (REF) | payer OTHER, SELFPAY ==
--- OUTSIDE RECORDS SUMMARY | 2024-07-19 03:40 | XMS_ITS ---
Author Organization [facility] Address [address] [place] [address] Care Team Providers Care Mail Superintendent Name Role Phone Dirk AMOS, [place] Primary Care Provider Unajamie Ray Cecilio Maximus [phone] REASON FOR VISIT screening, hx polyps,fam hx colon ca Encounters Encounter Location Date Provider Diagnosis [facility] Outpatient [address] [place] [address] [phone] 07/19/2024 Cecilio Ray Colon cancer scree consuelo [...] HALLIE FLEMING EDOB: [birth year] (65 yo M)Acc No.[id number]:07/19/2024 COLON WITH MAC Patient: HALLIE WATTS Provider: Alexandria Ray MD :1960 A ge:64 Y S ex:Male Date:07/19/2024 Address[address] [facility] Pcp:Jay Cavazos MD Subjective: * Chief Complaints: * 1 . Screening, hx polyps,fam hx colon ca. * Medical History: Objective: * Vitals: Assessment: * Assessment: 1. C olon cancer screening - Z12.11 (Primary) 2 . P ersonal history of colonic polyps - Z86.0100 3 . F amily history of colon cancer - Z80.0 ?4. C olon polyps - K63.5 5 . D iverticulosis of large intestine without perforation or abscess without bleeding - K57.30 Plan: * Treatment: * Procedure Codes: 4 5385 LESION REMOVAL COLONOSCOPY, 94404 COLONOSCOPY AND BIOPSY, Modifiers: 59 * * The named appointment provid er may or may not be the originator of this progress note, and it is not deemed complete until electronically signed by the appointment provider. Sign off status: Pending * Provider: Alexandria Ray MD Date: 0 07/19/2024 Generated for Mega de león/Be/Gregoritting on: 05/30/2024 06:04 AM EST
--- OUTSIDE RECORDS SUMMARY | 2025-03-30 06:04 | XMS_ITS | Clinical Summary ---
Author Organization [facility] Address [address] [place] [address] Phone Care Team Providers Care Watch [employer] Grinder Name Role Phone Jay Cavazos MD Primary Care Provider [phone] Social History Tobacco Use Types Packs/Day Years Used Date Smoking Tobacco: Never Assessed Education Answer Date Recorded Are you interested in more education? Not on damian e 09/18/2022 Are you concerned about learning? Not on file 09/18/2022 No 09/18/2022 No 09/18/2022 Digital Access Answer Date Recorded No 10/14/2022 No 10/14/2022 No 10/14/2022 Reliable internet access at home? Not on file 10/14/2022 Device with a working camera? Not on file Sex and Gender Information Value Date Recorded Sex Assigned at Not on file Legal Sex Male 9:57 AM EST Gender Identity Not on file Sexual Orientation Not on file Plan of Treatment Health Maintenance Due Date Last Done Comments LIPID PANEL 1958 DEPRESSION SCREENING 1970 SMOKING Hx and SMOKELESS TOBACCO SCREENING 1971 HEPATITIS C SCREENING 1976 COLOGUARD 2003 COLONOSCOPY 2003 COLORECTAL CANCER SCREENING 2003 FIT TEST 2003 FOBT 2003 SIGMOIDOSCOPY 2003 VIRTUAL COLONOSCOPY 2003 PNEUMOCOCCAL VACCINES (50+ years) (1 of 1 - PCV) 2008 ZOSTER VACCINES (1 of 2) 2008 INFLUENZA VACCINE (#1) 2024 9, 03/08/2018, 02/22/2017, Additional history exists Adult Td,Tdap Booster 01/21/2025 01/21/2015, 012 COVID-19 VACCINE ( season) 2025 09/19/2020, 08/29/2020 RSV VACCINE (1 - 1-dose 75+ series) 2033 HEPATITIS A VACCINES Aged Out No long er eligible based on patient's age to complete this topic HIB VACCINES Aged Out No longer eligi ble based on patient's age to complete this topic MENINGOCOCCAL VACCINES (ACWY) Aged Out No longer eligible based on patient's age to complete this topic MENINGOCOCCAL VACCINES (B) Aged Out N o longer eligible based on patient's age to complete this topic Medical Devices Not on file Insurance ([place]) [address] [place] [id number] [facility] [address] [place] [address] [facility] [address] [place], [place] [address] [place], [place] [address] O [facility] Address: [address] [address] Care Teams Watch Parts Grinder Relationship Specialty Start Date End Date Jay Cavazos MD [address] [place] [address] [address] [place] [address] PCP - General Internal Medicine 07/17/19 Additional Source Comments The information contained in this document represents components of the legal health record. It is not the complete legal health record.[facility]
--- OUTSIDE RECORDS SUMMARY | 2025-03-30 06:04 | XMS_ITS | Data Portability ---
Author Organization [facility] Address [address] [address] Care Team Providers Care Load Dropper Name Role Phone JOSEPH ZENG Primary Care Provider Assessment Encounter Date Assessment Date Assessment LastModified [...] booked for the same. He needs a local driver on the day of the procedure. I also recommend a neurosurgical evaluation with Dr. Felix Hagen. He had tachycardia with a heart rate of 154 and high blood pressure of 160/128. His will take him to [facility]. I have called [facility] ER and given transfer. [email or web address] Not available 04/07/2018 15:11:12 07/27/2018 07/27/2018 Andrew [...] booked for the same. He needs a local driver on the day of the procedure. He is on Eliquis and needs to stop for three days prior to the injection per anticoagulation protocol. I have left a message with his rn geriatric, Dr. Mckeon. [email or web address] Not available 07/28/2018 16:09:50 08/09/2018 08/09/2018 Andrew [...] MRI, lumbar spine, w/o contrast 2017 018 [facility] ([facility]), [address] [facility], [place], [address], 8 10:04:55 Medication Orders None recorded. Patient TargetsNo targets recorded. Patient Instructions Encounter Date Encounter Id Patient Instructions Last Modified By Organization Details Last Modified Time 03/23/2018 [id number] He was advised against bed rest lasting longer than four days and to continue activities as tolerated. Benefits of smoking cessation were discussed with him. [email or web address] Not available 03/29/2018 09:42:05 04/07/2018 [id number] He was advised against bed rest lasting longer than four days and to continue activities as tolerated. Benefits of smoking cessation were discussed with him. [email or web address] Not available 04/07/2018 15:07:01 07/27/2018 [id number] He was advised against bed rest lasting longer than four days and to continue activities as tolerated. Benefits of smoking cessation were discussed with him. [email or web address] Not available 07/28/2018 13:00:52 08/09/2018 [id number] He was advised against bed rest lasting longer than four days and to continue activities as tolerated. Benefits of smoking cessation were discussed with him. [email or web address] Not available 08/10/2018 08:57:13 10/06/2018 [id number] He was advised against bed rest lasting [...] w/o contr ast [facility] Access ion Number : [id number] Patien t Name : Andrew Durant Medica l Record Number : [id number] Date of : 1959 Date of Exam : 2017 Referr ing Physic serenity : [facility] [address] [place] [address] Exam : MR - LUMBAR SPINE (C-) CPT 02936 - Room Descri ption : [facility] Verio 3.0T Techni que : Sag T1 [...] mposed new small centra l protru alicia. Chute Loader ior ligame ntous thicke consuelo and facet [...] ce (serie s 4, image 5). IMPRES ALIICA: 1. There has been mild progre ssion [...] g with CT. ----- PHYSIC SERENITY : GERMANIA LEBRON, DYLON OSBORNE MD (Signa dennisee on file) 2017 [facility] ([facility]) [address] [place], [address], 04/07/2018 14:45:57 04/04/20 18 04/01/2018 MRI, lumba r spine , w/o contr ast No observ ation record ed. [facility] ([facility]) [address] [facility] [place], [address], 04/07/2018 14:49:14 Result Notes Documentation Provider Name and Address Organization Details Recorded Time Mri, Lumbar Spine, W/o Contrast : [facility] Accession Number : [id number] Patient Name : Andrew Courtney Date of : 1960 Date of Exam : 04/01/2018 Referring Physician : TILA [facility]MER[facility] [address] [place] [address] Exam : MR - LUMBAR SPINE (C-) CPT 20646 - Room Description : [facility] 3.0T Technique : Sag T1 FLAIR, Sag T2,Sag STIR,T2, Ax T1 Final Report HISTORY: Back pain radiating down the legs. COMPARISON: Lumbar spine MRI, 12/17/2013. FINDINGS: There is slight dextroscoliosis of the upper lumbar spine without subluxation. Vertebral body heights are preserved. There is diffuse disc desiccation from L1 to L5 with mild multilevel disc space narrowing and anterior osteophyte formation. Disc space narrowing at L2-3 and L4-5 has mildly progressed 2014. Vacuum phenomenon is suggested at L5-S1. Minor Modic type I and type II endplate changes are also seen at L5-S1. Nonspecific small low T1/high STIR signal lesion in the L1 vertebral body is unchanged. The visualized lower thoracic cord is normal in caliber and signal. The conus terminates at L1. At L1-2 there is minimal disc bulging without significant canal stenosis. There is minimal bilateral neural foraminal stenosis. At L2-3 there is diffuse disc bulging with superimposed new left paracentral protrusion as well as mild facet spurring. This causes mild left-sided canal stenosis and mild compression of the descending left L3 nerve root. There is minimal bilateral neural foraminal stenosis. At L3-4 there is diffuse disc bulging asymmetric to the left as well as facet spurring. This causes mild canal stenosis and crowding of the bilateral descending L4 nerve roots, more so on the left. There is minimal right neural foraminal stenosis. A left foraminal protrusion is again seen causing mild to moderate left neural foraminal stenosis and contact of the exiting left L3 nerve root. At L4-5 there is diffuse disc bulging asymmetric to the right with superimposed new small central protrusion. Posterior ligamentous thickening and facet spurring is also noted. Overall, this causes mild canal stenosis, slightly worse than prior, and crowding of the descending right L5 nerve root. There is also mild to moderate right and mild left neural foraminal stenosis. At L5-S1 there is disc osteophyte and facet spurring without canal stenosis. Prominent right-sided marginal osteophyte results in severe right neural foraminal stenosis and compression of the exiting right L5 nerve root. The left neural foramen is patent. 2.5 cm cyst is seen in the mid left kidney. Small amount of free fluid is suggested within the right pelvis, incompletely imaged on the sagittal STIR sequence (series 4, image 5). IMPRESSION: 1. There has been mild progression of disc space narrowing at L2-3 and L4-5 since MRI from 2013. 2. At L2-3 there is a new left paracentral protrusion causing mild compression of the descending left L3 nerve root. 3. At L4-5 there is a new central protrusion with overall mild canal stenosis, slightly worse than prior. 4. Remaining degenerative changes are stable, including severe right-sided neural foraminal stenosis at L5-S1 with compression of the exiting right L5 nerve root. 5. Small amount of free fluid is suggested within the right pelvis, incompletely imaged and nonspecific. Clinical correlation will dictate the need for further imaging with CT. ----- PHYSICIAN : DYLON RODRIGUEZ MD (Signature on file) 04/04/2018 Tila Salmeron MD [address] , [address], [place], [address], [place] [facility] 04/07/2018 14:45:57 Problems Name Problem SNOMED Code Status Onset Date Resolution Date Notes Provider Name and Address Organization Details Recorded Time Lumbosacral radiculitis 23142399 Active Tila rand MD [address] , [address], [place], [address], [place] [facility] 6 14:05:15 Pain of hip region 96347325 Active Tila rand MD [address] , [address], [place], [address], [place] [facility] 6 14:05:15 Displacement of lumbar intervertebral disc without myelopathy 05041381 Active Tila rand MD [address] , [address], [place], [address], [place] [facility] 6 14:05:15 Problem Notes None recorded. Procedures Surgical History Date Name Laterality Status Provider Name and Address Organization Details Recorded Time 08/10/19 19 Lumbar Epidural steroid injection under fluoroscopic guidance completed Tila Salmeron MD [address] , [address], [place], [address], [place] [facility] 08/10/2018 08:58:14 02/02/20 18 Lumbar Epidural steroid injection under fluoroscopic guidance completed Tila Salmeron MD [address] , [address], [place], [address], [place] [facility] 02/01/2018 14:27:26 09/08/19 18 Lumbar epidural steroid injection with surface anatomy completed Tila Salmeron MD [address] , [address], [place], [address], [place] [facility] 09/08/2017 10:23:39 09/09/19 17 Lumbar Epidural steroid injection under fluoroscopic guidance completed Tila Salmeron MD [address] , [address], [place], [address], [place] [facility] 09/09/2016 15:00:25 12/10/19 16 Lumbar Epidural steroid injection under fluoroscopic guidance completed Tila Salmeron MD [address] , [address], [place], [address], [place] [facility] 12/10/2015 14:05:15 06/18/19 16 Lumbar Epidural steroid injection under fluoroscopic guidance completed Tila Salmeron MD [address] , [address], [place], [address], [place] [facility] 06/18/2015 14:27:13 11/07/19 15 Lumbar Epidural steroid injection under fluoroscopic guidance completed Tila Salmeron MD [address] , [address], [place], [address], [place] [facility] 11/07/2014 09:24:04 01/24/20 14 Lumbar Epidural steroid injection under fluoroscopic guidance completed Tila Salmeron MD [address] , [address], [place], [address], [place] [facility] 01/24/2014 15:55:24 Other completed Roz Cortez [place] [facility] 12/07/2013 14:37:39 Imaging Results None recorded. Procedure Notes None recorded. Medical Equipment None Reported. Allergies Allergen ID Allergen Name Allergen Category Reaction Reaction Severity Criticality Documentation Date Start Date Code Code System Note Provider Name and Address Organization Details Recorded Time 8681 honey bee venom environme nt anaphylax is Not available Not available 12/07/2013 14780 7 RxNorm Roz cabral [place] [facility] 4 14:37:40 Medications Name Sig Start Date Stop Date Status Note LastModified by Organization Details LastModified Time hydrocodone /acetaminop hen 5-325 mgtabs active Not Available Not Available Not Available divalproex sodium dr 500 mg tbec active [...] Available Not Available No t Available Fluvirin 5975-6723 45 mcg (15 mcg x 3)/0.5 mL intramuscul ar suspension active Not Available Not Available N ot Available Fluvirin 45 mcg (15 mcg x 3)/0.5 mL intramuscul ar suspension ADM 0.5ML IM UTD 09/08 completed Not Available Not Available Not Available Vitals Date Recorded Body height Heart rate Oxygen saturation Oxygen saturation in Arterial blood by Pulse oximetry Systolic And Diastolic Provider Name and Address Organization Details Last Updated DateTime 9 171.45 cm 70 /min 98 % 98 % 130/91 mm[Hg] Roz Cortez [place] [facility] 9 14:36:39 Date Recorded Body height Heart rate Oxygen saturation Oxygen saturation in Arterial blood by Pulse oximetry Systolic And Diastolic Provider Name and Address Organization Details Last Updated DateTime 9 171.45 cm 78 /min 97 % 97 % 133/93 mm[Hg] Roz Cortez [place] [facility] 9 14:12:31 Date Recorded Body height Heart rate Oxygen saturation Oxygen saturation in Arterial blood by Pulse oximetry Body mass index (BMI) Body weight Systolic And Diastolic Provider Name and Address Organization Details Last Updated DateTime 9 171.45 cm 89 /min 97 % 97 % 27.8 kg/m2 61513.6 3 g 125/89 mm[Hg] Roz Cortez [facility] 9 15:38:38 Date Recorded Body height Heart rate Oxygen saturation Oxygen saturation in Arterial blood by Pulse oximetry Systolic And Diastolic Provider Name and Address Organization Details Last Updated DateTime 8 171.45 cm 75 /min 96 % 96 % 122/98 mm[Hg] [facility] 8 13:27:12 Date Recorded Body height Oxygen saturation Oxygen saturation in Arterial blood by Pulse oximetry Heart rate Systolic And Diastolic Systolic And Diastolic Provider Name and Address Organization Details Last Updated DateTime 8 171.45 cm 98 % 98 % 154 /min 144/115 mm[Hg] 165/129 mm[Hg] [facility] 8 14:44:14 Date Recorded Pain severity - 0-10 verbal numeric rating [Score] - Reported Provider Name and Address Organization Details Last Updated DateTime 04/07/2018 5 Not Available [facility] 8 05:00:34 Social History Question Answer Notes LastModified by Spectafy Details LastModified Time Tobacco Smoking Status Current Every Day Smoker Not Available [facility] 03/08/2020 03:16:10 Education 12 [email or web address] Information no t available 12/07/2013 Live Alone Or With Others? With Others And Daughter [email or web address] Information not available 12/07/2013 Marital Status [email or web address] Informatio n not available 12/07/2013 What Was The Date Of Your Most Recent Tobacco Screening? 10/07/2018 [id number] Information not available 03/08/2020 How Much Tobacco Do You Smoke? 1.5 PPD [id number] Information not available 03/08/2020 How Many Years Have You Smoked Tobacco? 35 [id number] Information not available 03/08/2020 Sex: Unknown Functional Status Question Answer Note LastModified by Spectafy Details LastModified Time What is your level of alcohol consumption? Moderate [id number] Information not available 03/08/2020 Are you currently employed? Yes [employer] [id number] Information not available 03/08/2020 What is your occupation? [email or web address] Information not available 12/07/2013 Mental Status None recorded. Family History Relationship [...] Diagnosis SNOMED-CT Code Diagnosis ICD10 Code Diagnosis IMO Codes Diagnosis Note [id number] Tila Salmeron MD PAIN OFFICE [address] [facility] [place] [address] 12/07/2013 14:18:36 12/08/2013 09:42:04 Displacement of lumbar intervertebral disc without myelopathy 16134986 Pain of hip region 30135622 Lumbosacra l radiculitis 44099047 04975 Tila Salmeron MD PAIN OFFICE [address] [facility] [place] [address] 01/04/2014 14:55:02 01/05/2014 08:07:22 Displacement of lumbar intervertebral disc without myelopathy 64345681 Pain of hip region 27459572 Lumbosacra l radiculitis 87022106 61045 Tila Salmeron MD PAIN OFFICE [address] [facility] [place] [place] [address] 01/23/2014 10:44:41 01/24/2014 15:57:13 Displacement of lumbar intervertebral disc without myelopathy 96288509 Pain of hip region 54625888 Lumbosacra l radiculitis 93030593 75945 Tila Salmeron MD PAIN OFFICE [address] [facility] [place] [address] 02/28/2014 14:56:37 02/28/2014 15:46:39 Displacement of lumbar intervertebral disc without myelopathy 89730235 Pain of hip region 66830485 Lumbosacra l radiculitis 08756788 40580 Tila Salmeron MD PAIN OFFICE [address] [facility] [place] [address] 11/06/2014 15:02:00 11/07/2014 11:51:38 Displacement of lumbar intervertebral disc without myelopathy 20020227 Pain of hip region 76604756 Lumbosacra l radiculitis 82458982 71267 Tila Salmeron MD PAIN OFFICE [address] [facility] [place] [address] 06/18/2015 13:48:50 06/19/2015 09:11:47 Displacement of lumbar intervertebral disc without myelopathy 76648313 M51.26 Pain of hip region 61286 002 M25.552 Lumbosacra l radiculitis 21304605 M54.17 77018 Tila Salmeron MD PAIN OFFICE [address] [facility] [place] [address] 12/10/2015 13:29:42 12/11/2015 09:21:29 Lumbosacral radiculitis 10007115 M54.17 Displaceme nt of lumbar intervertebral disc without myelopathy 94090674 M51.26 Pain of hip region 38245 002 M25.552 05350 Tila Salmeron MD PAIN OFFICE [address] [facility] [place] [address] 09/08/2016 11:20:22 09/09/2016 15:12:37 Lumbosacral radiculitis 46276619 M54.17 Displaceme nt of lumbar intervertebral disc without myelopathy 06818910 M51.26 Pain of hip region 83572 002 M25.552 60728 Tila Salmeron MD PAIN OFFICE [address] [facility] [place] [address] 09/03/2017 08:56:07 09/03/2017 09:48:53 Lumbosacral radiculitis 82881784 M54.17 Displaceme nt of lumbar intervertebral disc without myelopathy 83262809 M51.26 Pain of hip region 38075 002 M25.552 28858 Tila Salmeron MD PAIN OFFICE [address] [facility] [place] [address] 09/07/2017 15:09:53 09/08/2017 10:25:46 Lumbosacral radiculitis 50131841 M54.17 Displaceme nt of lumbar intervertebral disc without myelopathy 27869860 M51.26 Pain of hip region 83862 002 M25.552 04108 Tila Salmeron MD PAIN OFFICE [address] [facility] [place] [address] 02/01/2018 13:56:59 02/02/2018 08:24:42 Lumbosacral radiculitis 22090347 M54.17 Displaceme nt of lumbar intervertebral disc without myelopathy 49193922 M51.26 Pain of hip region 37208 002 M25.552 68984 Tila Salmeron MD PAIN OFFICE [address] [facility] [place] [address] 03/23/2018 13:16:30 03/29/2018 10:00:25 Displacement of lumbar intervertebral disc without myelopathy 93508851 M51.26 Pain of hip region 20840 002 M25.552 Lumbosacra l radiculitis 44849090 M54.17 09185 Tila Salmeron MD PAIN OFFICE [address] [facility] [place] [address] 04/07/2018 12:45:54 04/07/2018 15:11:59 Displacement of lumbar intervertebral disc without myelopathy 44382229 M51.26 Pain of hip region 44994 002 M25.552 Lumbosacra l radiculitis 08850756 M54.17 36397 Tila Salmeron MD PAIN OFFICE [address] [facility] [place] [address] 07/27/2018 14:25:10 07/28/2018 13:12:53 Displacement of lumbar intervertebral disc without myelopathy 26062959 M51.26 Pain of hip region 29186 002 M25.552 Lumbosacra l radiculitis 07932190 M54.17 26059 Tila Salmeron MD PAIN OFFICE [address] [facility] [place] [address] 08/09/2018 13:52:50 08/10/2018 09:01:56 Lumbosacral radiculitis 98164661 M54.17 Displaceme nt of lumbar intervertebral disc without myelopathy 11936882 M51.26 Pain of hip region 00160 002 M25.552 84772 Tila Salmeron MD PAIN OFFICE [address] [facility] [address] [place] [address] 10/06/2018 15:30:06 10/07/2018 08:48:48 Lumbosacral radiculitis 43977659 M54.17 Displaceme nt of lumbar intervertebral disc without myelopathy 91180915 M51.26 Pain of hip region 16979 002 M25.552 Health Concerns Section Related Observation LastModified by Organization Detai ls LastModified Time None Recorded Concern Status LastModified by Organization Details LastModified Time None Recorded Advance Directives Directive None Recorded Payers Insurance Date Sequence Insurance Name Policy Number Policy Pedroza Covered Member ID Pedroza Member ID Guarantor Name 10/03/[address] [place] [address] [id number] 01 Andrew Courtney [id number] Andrew Courtney Notes Date Note Type Note Provider Name [...] His last MRI was 4 years ago. Tila Salmeron MD [address] , [address], [place], [address], [facility] 04/04/2018 08:39:37 04/07/2018 text/html He [...] stenosis and has seen Dr. Brian at [facility] and has an appointment in April 2018. Tila Salmeron MD [address] [facility] , [address], [place], [address], [place] [facility] 04/09/2018 13:13:14 07/27/2018 text/html He is here for a follow up. He is complaining of low back pain radiating into right lower extremity. He has been admitted in the hospital with atrial flutter and is on Eliquis . He states he is seeing Dr. Stuart Salmeron MD [address] [facility] [address], [place], [address], [place] [facility] 07/29/2018 10:06:44 08/09/2018 text/html He is here for a lumbar epidural steroid injection under fluoroscopic guidance. He is on Eliquis and has stopped for three days for the procedure. Tila Salmeron MD [address] [facility] , [address], [place], [address], [place] [facility] 08/11/2018 09:34:00 10/06/2018 text/html He is here for a follow up. He reports good pain relief for one week with return of pain back to baseline. He continues to have low back pain radiating into both lower extremities. He is on eliquis and had a stress test done which shows no ischemia. He is in afib. Tila Salmeron MD [address] [facility] , [address], [place], [address], [place] [facility] 10/10/2018 13:27:34
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
[2025-03-30 10:23] LABS: MANUAL DIFF FLAG NO
[2025-03-30 10:31] LABS: Hematocrit 40.4 % (42.0-52.0); Hemoglobin 13.9 g/dl (14.0-18.0); Imm Gran Pct Auto 0.7 % (0.0-0.4); Mean Corpuscular HGB Conc 34.4 g/dl (31.0-36.0); Mean Corpuscular Hemoglobin 31.2 pg (27.0-33.0); Mean Corpuscular Volume 90.6 fL (80.0-98.0); Platelet Count 255 X10*3/uL (160-400); Red Blood Count 4.46 X10*6/uL (4.60-5.80); White Blood Count 5.8 X10*3/uL (4.8-10.8)
[2025-03-30 10:32] LABS: Imm Gran Abs Auto 0.04 X10*3/uL (0.00-0.03); Lymphocytes Absolute Auto 1.6 X10*3/uL (1.2-4.9); NRBC Abs Auto 0.000 X10*3/uL (0.0-0.012); NRBC Pct Auto 0.0 /100WBC (0.0-0.2)
[2025-03-30 10:46] LABS: Alanine Aminotransferase 21 U/L (0-40); Albumin Level 4.6 g/dL (3.5-5.0); Alkaline Phosphatase 47 U/L (39-117); Anion Gap 15 (12-20); Aspartate Amino Transferase 37 U/L (5-37); Blood Urea Nitrogen 16 mg/dL (9-16); Calcium 9.3 mg/dL (8.4-10.2); Carbon Dioxide 26 mmol/L (22-29); Chloride 94 mmol/L (96-108); Cholesterol 160 mg/dL (<200); Estimated Glomerular Filt Rate > 60; HDL Cholesterol 78 mg/dL (>40); Potassium 4.0 mmol/L (3.3-5.1); Sodium 131 mmol/L (135-145); Total Protein 7.2 g/dL (6.5-8.0); Triglycerides 43 mg/dL (<150)
[2025-03-30 11:01] LABS: Appearance Urine Clear; Glucose Urine UA Negative (Negative); PH 6.5 (5.0-9.0); Specific Gravity - Urine 1.010 (1.005-1.025); UMIC TRIGGER UACC YES
== END 2025-03-30 06:01 | disposition home or self-care (01) ==
LOC: HO.HMGCLDS 06:00
PROVIDERS: PCP Internal Medicine; Visit Provider Internal Medicine
DX: E11.9 Type 2 diabetes mellitus without complications (principal); E78.00 Pure hypercholesterolemia, unspecified; D64.9 Anemia, unspecified; E55.9 Vitamin D deficiency, unspecified
CPT/HCPCS: 36415; 80053; 80061; 81001; 81003; 82306; 83036; 84443; 85025

== ENCOUNTER 2025-04-24 14:52 | Outpatient (AMB) | payer OTHER, SELFPAY ==
[2025-04-24 14:55] VITALS: BP 126/78; PULSE 60; O2SAT 98; BMI 28.7
--- NOTE | 2025-04-24 14:55 | A.OFFPC_ITS ---
Vital Signs 04/24/25 14:55 Height 5 ft 7.25 in Weight 184 lb 8 oz BMI 28.7 BP 126/78 Blood Pressure Location Lt brachial Position Sitting Pulse 60 Pulse Source Pulse Oximeter Pulse Oximetry (%) 98 Oxygen Delivery Method Room Air Intake Visit Reasons: 6 mn f/u Supervisor Wrapping Room Required: No Accompanied by: Self / Same As Patient Allergies bee pollen (bee stings) Allergy (Verified 04/24/25 15:19) Unknown Medication List - Last Reconciled 04/24/25 by Jay Cavazos MD acetaminophen-codeine 300-30 mg 1 tab PO TID PRN 7 days amoxicillin 2,000 mg (4 x 500 mg) PO ONCE 1 day apixaban (Eliquis) 5 mg PO BID atorvastatin 40 mg PO DAILY diltiazem HCl ER 240 mg PO DAILY divalproex ER (Depakote ER) 500 mg PO BID docusate sodium (Colace) 100 mg PO DAILY PRN finasteride 5 mg PO DAILY gabapentin 400 mg PO TID lisinopril 40 mg PO DAILY olanzapine 10 mg PO BEDTIME Tobacco use date assessed: 04/24/25 Fall risk assessment: No Falls in past year Last assessed Fall Risk: 04/24/25 Dental Screening Dental Screen Date: 04/24/25 Did you have a dental visit in the last 12 months?: Yes Did you have a dental problem in the last 6 months where you did not have access to dental care?: No Was dental information given to patient?: Patient has dentist HPI 6 [facility] f/u HPI Details Patient comes in today for his follow up visit States that he feels okay States that he is now using a CPAP device when sleeping at night - was started on this about 3 to 4 months ago by sleep medicine at [facility] He denies any headaches or dizziness Denies any chest pains, no increased SOB No nausea/vomiting, no abdominal pain No change in bowel habits noted Needs his prophylactic Amoxicillin Abx Rx refilled He had his follow up labs done last month - to discuss his results [facility] Medical History (Updated 04/25/25 @ 09:59 by Jay Cavazos MD) Obstructive sleep apnea on CPAP Anxiety Depression Impaired fasting glucose Overweight (BMI 25.0-29.9) Bipolar disorder GERD (gastroesophageal reflux disease) Degenerative disc disease, cervical Lumbar disc herniation with radiculopathy Pure hypercholesterolemia Atrial fibrillation Benign essential hypertension Severe aortic stenosis Surgical History Hx of hand surgery Hx of colonoscopy History of pacemaker H/O aortic valve replacement Family History Father Brain cancer Mother Cancer Brother Colon cancer Other Mental health problem Substance abuse Social History Housing: House Alcohol intake: current Alcohol intake frequency: a few times a week Alcohol type: beer Patient Tobacco Use Status: Former Tobacco user e-Cigarette/Vaping Use: Never Used Second Hand Smoke Exposure: No Substance Use Type: Marijuana service: No Current occupational status: employed Current occupation: [employer] Cognitive needs: No Hearing needs: No Vision needs: No Questionnaire PHQ-9 Over the last 2 weeks, how often have you been bothered by any of the following problems? 1. Little interest or pleasure in doing things: not at all 2. Feeling down, depressed, or hopeless: not at all 3. Trouble falling or staying asleep, or sleeping too much: not at all 4. Feeling tired or having little energy: not at all 5. Poor appetite or overeating: not at all 6. Feeling bad about yourself - or that you are a failure or have let yourself or your family down: not at all 7. Trouble concentrating on things, such as reading the newspaper or watching television: not at all 8. Moving or speaking so slowly that other people could have noticed. Or the opposite - being so fidgety or restless that you have been moving around a lot more than usual: not at all 9. Thoughts that you would be better off or of hurting yourself in some way: not at all Total score: 0 Depression Screening Interpretation: Negative Depression Screening Done: Yes 57343 - PHQ-9 Billing: Yes Source: Developed by Drs. Cecilio Fritz, Yakelin Cerrato, Jared Kruger and colleagues, with an educational juan from [employer]. Thrive Questionnaire Date Thrive assessed: 04/24/25 I am a: Patient What is your living situation today?: I have a steady place to live Within the past 12 months, did the food you bought not last and you didn't have the money to get more?: Never true Within the past 12 months, did you worry whether your food would run out before you got money to buy more?: Never true Do you have trouble paying for medicines?: I choose not to answer this question Do you have trouble getting transportation to medical appointments?: No Do you have trouble paying your heating and electricity bill?: I choose not to answer this question Do you have trouble taking care of your child, family member or friend?: No Do you have trouble with day-to-day activities such as bathing, preparing meals, shopping, managing finances, etc.?: No Are you currently unemployed and looking for a job?: No Are you interested in more education?: I choose not to answer this question Currently or been in a relationship where the following occur: No concerns reported THRIVE Score: 0 AUDIT C Alcohol Use Questionnaire (AUDIT-C) 1. How often do you have a drink containing alcohol?: 4 or more times a week 2. How many drinks containing alcohol do you have on a typical day when you are drinking?: 1 or 2 3. How often do you have six or more drinks on one occasion?: Never Total Score: 4 Score Reviewed/Action Taken: Yes ELIZABET-7 AMB Questionnaire ELIZABET-7 Date ELIZABET - 7 assessed: 04/24/25 Feeling nervous, anxious, or on edge: 0 = Not at all Not being able to stop or control worryin = Not at all Worrying too much about different things: 0 = Not at all Trouble relaxin = Not at all Being so restless that it is hard to sit still: 0 = Not at all Becoming easily annoyed or irritable: 0 = Not at all Feeling afraid as if something awful might happen: 0 = Not at all Total ELIZABET-7 score (0-4 normal; 5-9 mild; 10-14 moderate; 15-21 severe): 0 Source: Developed by Drs. Cecilio Fritz, Yakelin Cerrato, Jared Kruger and colleagues, with an educational juan from [employer]. Review of Systems Const Denies chills, Denies fatigue, Denies fever(s) and Denies headache(s) ENT Denies dysphagia, Denies dizziness, Denies otalgia, Denies headache(s), Denies neck pain, Denies odynophagia and Denies sore throat Card Denies chest pain, Denies palpitations and Denies dyspnea Resp Denies chest congestion, Denies cough and Denies dyspnea GI Denies abdominal pain, Denies constipation, Denies dysphagia, Denies heartburn, Denies diarrhea, Denies nausea, Denies odynophagia and Denies vomiting Denies difficulty urinating, Denies dysuria, Denies nocturia and Denies urinary frequency Musc Reports back pain, Reports arthralgias (right shoulder; left hip, especially when walking), Denies neck pain, Denies numbness and Denies tingling Skin/Breast Denies rash Neuro Denies dizziness, Denies headache(s), Denies numbness and Denies tingling Psych Denies anxiety and Denies depression Endo Denies fatigue and Denies palpitations Physical exam (Primary Care) Vital Signs: Last Vital Signs Pulse 60 04/24/25 14:55 BP 126/78 04/24/25 14:55 Pulse Ox 98 04/24/25 14:55 Oxygen Delivery Method Room Air 04/24/25 14:55 BMI result Body Mass Index 28.7 Tobacco/Smoking Status: Tobacco use Status Tobacco use date assessed 04/24/25 04/24/25 15:03 Patient Tobacco Use Status Former Tobacco user 04/24/25 15:03 e-Cigarette/Vaping Use Never Used 04/24/25 15:03 PHQ-9: PHQ-9 Score PHQ-9: Total score 0 04/24/25 15:21 Depression Screening Interpretation: Negative Thrive Assessment: Date of Thrive Assessment Date Thrive assessed 04/24/25 04/24/25 15:03 Currently or been in a relationship where the following occur: No concerns reported Const General: no acute distress and alert HENMT Ears: TM's normal bilaterally and EAC's normal Throat: Yes posterior oropharynx normal and Yes tonsils normal (no TP congestion noted) Neck Neck: Yes supple and No lymphadenopathy Thyroid: Thyroid normal Resp Auscultation: clear to auscultation bilaterally, no rales and no wheezes Cardio Rate: regular rate Rhythm: regular rhythm Heart sounds: no murmurs GI Palpation (GI): Soft to palpation and nontender Auscultation: normal bowel sounds General: Yes no CVA tenderness Back/Spine/Pelvis Back: no CVA tenderness Thoracic/Lumbar Spine: lumbar spinal tenderness (chronic) Skin Rashes: no rashes Extrem General: Yes no clubbing, cyanosis or edema Results Reviewed Results Reviewed: Laboratory Tests 03/30/25 06:11 WBC 5.8 Hgb 13.9 L Hct 40.4 L Plt Count 255 Sodium 131 L Potassium 4.0 Creatinine 0.92 Estimated GFR > 60 Fasting Glucose 119 H Hemoglobin A1c % 5.6 Calcium 9.3 AST 37 ALT 21 Triglycerides 43 Cholesterol 160 LDL Cholesterol, Calc 74 HDL Cholesterol 78 25-OH Vitamin D Total 51.4 TSH 1.21 Ur Specific [place] 1.010 Urine Protein 100 (2+) H Urine Glucose (UA) Negative Urine Blood Moderate (2+) H Urine Nitrite Negative Ur Leukocyte Esterase Negative Coding Level of Care Code Est Pt Level 4 (49724) Diagnoses Benign essential hypertension I10 Pure hypercholesterolemia E78.00 Atrial fibrillation, unspecified type I48.91 Atrial fibrillation type: unspecified Severe aortic stenosis I35.0 S/P AVR (aortic valve replacement) Z95.2 Obstructive sleep apnea on CPAP G47.33 Impaired fasting glucose R73.01 Lumbar disc herniation with radiculopathy M51.16 Degenerative disc disease, cervical M50.30 Gastroesophageal reflux disease without esophagitis K21.9 Esophagitis presence: without esophagitis Squamous cell carcinoma of skin of right lower extremity C44.722 Bipolar affective disorder, current episode mixed, current episode severity unspecified F31.60 Active/Remission status: currently active Current bipolar episode type: mixed Current episode severity: unspecified Overweight (BMI 25.0-29.9) E66.3 Additional Codes PHQ-9 - 74320 - PHQ-9 Billing: Yes ([id number]) Assessment & Plan Assessment & Plan (1) Benign essential hypertension: Code(s): I10 - Essential (primary) hypertension Category: Medical Plan: Reinforced low-sodium diet - goal is systolic BP of 120 to 130 mm or less Continue Lisinopril 40 mg QD Patient is reminded to continue monitoring his blood pressure regularly (2) Pure hypercholesterolemia: Code(s): E78.00 - Pure hypercholesterolemia, unspecified Category: Medical Plan: Results of his labs done a month ago reviewed and discussed with patient Reinforced low cholesterol diet Continue Atorvastatin 40 mg QD Will have patient recheck his labs and fasting lipids again in 6 months for follow-up (3) Atrial fibrillation: Comment: S/P STEPHANIE cardioversion in June 2019 and presently has a defibrillator in place on his left upper chest wall Code(s): I48.91 - Unspecified atrial fibrillation Category: Medical Qualifiers: Atrial fibrillation type: unspecified Qualified Code(s): I48.91 - Unspecified atrial fibrillation Plan: Patient currently remains in sinus rhythm Continue Diltiazem ER 240 mg QD; continue Eliquis 5 mg BID for thromboembolism prophylaxis Follow-up with cardiology as scheduled (4) Severe aortic stenosis: Comment: S/P AVR with bioprosthetic valve in June 2019 Code(s): I35.0 - Nonrheumatic aortic (valve) stenosis Category: Medical Plan: RESOLVED - S/P AVR in 06/2019 with no acute issues since He was not able to complete his cardiac rehab a few years ago due to the COVID- 19 pandemic but states that he went back to work shortly afterwards with no problems and states that he has been back at his baseline level of functioning for the past few years now Follow-up with cardiac surgeon as scheduled or as needed (5) S/P AVR (aortic valve replacement): Code(s): Z95.2 - Presence of prosthetic heart valve Category: Surgical Plan: S/P AVR on 07/03/2019 at [facility] - patient is currently doing well (6) Obstructive sleep apnea on CPAP: Code(s): G47.33 - Obstructive sleep apnea (adult) (pediatric) Category: Medical Plan: He was referred by cardiology for evaluation for KAYLA He was then seen by Sleep Medicine and had a home sleep study done, which revealed (+) mild to moderate KAYLA He was then started on a CPAP device about 3 to 4 months ago and states that he has now gotten better and more used to his device and he uses it regularly every night when he is sleeping at 6 to 16 cm H2O Follow up with Sleep Medicine at [facility] as scheduled (7) Impaired fasting glucose: Code(s): R73.01 - Impaired fasting glucose Category: Medical Plan: FBS was again elevated at 119 mg/dl but his HgbA1c remains normal at 5.6% on his labs done last month; his HgbA1c was also at 5.6% when previously checked in October 2023 Reinforced low calorie/low carb diet; exercise as tolerated (8) Lumbar disc herniation with radiculopathy: Code(s): M51.16 - Intervertebral disc disorders with radiculopathy, lumbar region Category: Medical Plan: Reinforced activity and weight lifting restrictions to avoid aggravating his low back pain He has been getting injections into his lower back at [facility] with (+) significant improvement of his low back pain Continue OTC Tylenol as needed for pain and Tylenol # 3 only as needed for severe pain (9) Degenerative disc disease, cervical: Code(s): M50.30 - Other cervical disc degeneration, unspecified cervical region Category: Medical Plan: Patient states that his neck pains remain adequately controlled on his current Rx (10) GERD (gastroesophageal reflux disease): Code(s): K21.9 - Gastro-esophageal reflux disease without esophagitis Category: Medical Qualifiers: Esophagitis presence: without esophagitis Qualified Code(s): K21.9 - Gastro-esophageal reflux disease without esophagitis Plan: Dietary restrictions reinforced He takes OTC Tums or OTC Prilosec 20 mg QD as needed when his symptoms flare up (11) Squamous cell carcinoma of skin of right lower extremity: Comment: around the right ankle area Code(s): C44.722 - Squamous cell carcinoma of skin of right lower limb, including hip Category: Medical Plan: S/P surgical excision by [facility] back in September 2023 Follow up with dermatology as scheduled for continuing surveillance (12) Bipolar disorder: Code(s): F31.9 - Bipolar disorder, unspecified Category: Medical Qualifiers: Active/Remission status: currently active Current bipolar episode type: mixed Current episode severity: unspecified Qualified Code(s): F31.60 - Bipolar disorder, current episode mixed, unspecified Plan: Continue Zyprexa 10 mg daily at bedtime and Depakote ER 500 mg twice a day Follow up with psychiatry as scheduled (13) Overweight (BMI 25.0-29.9): Code(s): E66.3 - Overweight Category: Medical Plan: Reinforced diet/exercise as tolerated/lose weight Plan Follow up in 6 months Orders: Orders Hemoglobin A1c 6 Months R73.01 - Impaired fasting glucose UA CC w/rflx Micro + Cult 6 Months R30.0 - Dysuria Lipid Panel 6 Months E78.00 - Pure hypercholesterolemia, unspecified Comprehensive [place]. Panel Fast 6 Months E78.00 - Pure hypercholesterolemia, unspecified Complete Blood Count Auto Diff 6 Months D64.9 - Anemia, unspecified TSH reflex Free T4 6 Months E78.00 - Pure hypercholesterolemia, unspecified Vitamin B12 and Folate 6 Months E53.8 - Deficiency of other specified B group vitamins Vitamin D 25-OH Total 6 Months E55.9 - Vitamin D deficiency, unspecified Medications: Refilled amoxicillin Take 4 capsules 2 hours before procedure 2,000 mg (4 x 500 mg) PO ONCE 4 caps 3RF 1 day
--- OUTSIDE RECORDS SUMMARY | 2025-04-24 16:42 | XMS_ITS | Clinical Summary ---
Author Organization [facility] Address [address] [place] [id number] Phone Care Team Providers Care Manager Apple Name Role Phone Jay Cavazos MD Primary Care Provider [phone] Social History Tobacco Use Types Packs/Day Years [...] Td,Tdap Booster 01/21/2025 01/21/2015, 012 COVID-19 VACCINE (2024- season) 2025 09/19/2020, 08/29/2020 RSV VACCINE (1 [...] topic Medical Devices Not on file Insurance [facility] [address] [place] [address] Address: [address] [address] Care Teams Manager Apple Relationship Specialty Start Date End Date Jay Cavazos MD [address] [place] [address] [address] [place] [address] PCP - General Internal Medicine 07/17/19 Additional Source Comments The information contained in this document represents components of the legal health record. It is not the complete legal health record.[facility]
== END 2025-04-24 15:31 | disposition home or self-care (01) ==
LOC: HO.HMCH 14:52
PROVIDERS: PCP Internal Medicine; Visit Provider Internal Medicine
DX: I10 Essential (primary) hypertension (principal); I48.91 Unspecified atrial fibrillation; F31.60 Bipolar disorder, current episode mixed, unspecified; E78.00 Pure hypercholesterolemia, unspecified; I35.0 Nonrheumatic aortic (valve) stenosis; Z95.2 Presence of prosthetic heart valve; G47.33 Obstructive sleep apnea (adult) (pediatric); R73.01 Impaired fasting glucose; M51.16 Intervertebral disc disorders with radiculopathy, lumbar region; E66.3 Overweight; Z68.28 Body mass index [BMI] 28.0-28.9, adult; M50.30 Other cervical disc degeneration, unspecified cervical region; K21.9 Gastro-esophageal reflux disease without esophagitis; C44.722 Squamous cell carcinoma of skin of right lower limb, including hip

== ENCOUNTER → 2025-04-24 14:52 | Outpatient (BNVA) | payer OTHER, SELFPAY | PROVIDERS: PCP Internal Medicine; Visit Provider Internal Medicine | DX: I10 Essential (primary) hypertension (principal); E78.00 Pure hypercholesterolemia, unspecified; I48.91 Unspecified atrial fibrillation; I35.0 Nonrheumatic aortic (valve) stenosis; G47.33 Obstructive sleep apnea (adult) (pediatric); R73.01 Impaired fasting glucose; M51.16 Intervertebral disc disorders with radiculopathy, lumbar region; M50.30 Other cervical disc degeneration, unspecified cervical region; K21.9 Gastro-esophageal reflux disease without esophagitis; C44.722 Squamous cell carcinoma of skin of right lower limb, including hip; F31.60 Bipolar disorder, current episode mixed, unspecified; E66.3 Overweight; Z99.89 Dependence on other enabling machines and devices; Z95.2 Presence of prosthetic heart valve; Z68.28 Body mass index [BMI] 28.0-28.9, adult | CPT/HCPCS: 96127 ==

== ENCOUNTER 2025-05-22 07:20 | Outpatient (REF) | payer OTHER, SELFPAY ==
--- OUTSIDE RECORDS SUMMARY | 2024-07-19 03:40 | XMS_ITS ---
Author Organization [facility] Address [address] [place] [address] Care Team Providers Care Unix Manager Name Role Phone Dirk AMOS, [place] Primary Care Provider UnaCecilio Marie [phone] REASON FOR VISIT screening, hx polyps,fam hx colon ca Encounters Encounter Location Date Provider Diagnosis [facility] Outpatient [address] [place] [address] [id number] 07/19/2024 Cecilio Ray Colon cancer scree consuelo Z12.11 ; Personal history of colonic polyps Z86.0100 ; Family history of colon cancer Z80.0 ; Colon polyps K63.5 and Diverticulosis of large intestine without perforation or abscess without bleeding K57.30 Assessments Encounter Date Diagnosis (ICD Code) Assessment Notes Treatment Notes Treatment Clinical Notes Section Notes 07/19/2024 Colon cancer screening (ICD-10 - Z12.11) 07/19/2024 Personal history of colonic polyps (ICD-10 - Z86.0100) 07/19/2024 Family history of colon cancer (ICD-10 - Z80.0) 07/19/2024 Colon polyps (ICD-10 - K63.5) 07/19/2024 Diverticulosis of large intestine without perforation or abscess without bleeding (ICD-10 - K57.30) Plan Of Treatment No Information Progress Notes * HALLIE FLEMING EDOB: [birth year] (65 yo M)Acc No.[id number]:07/19/2024 COLON WITH MAC Patient: HALLIE WATTS Provider: Alexandria Ray MD :1960 A ge:64 Y S ex:Male Date:07/19/2024 Address:[address] [place], [place] Pcp:Jay Cavzaos MD Subjective: * Chief Complaints: * S creening, hx polyps,fam hx colon ca Assessment: * Assessment: 1. C olon cancer screening - Z12.11 (Primary) 2 . P ersonal history of colonic polyps - Z86.0100 3 . F amily history of colon cancer - Z80.0 ?4. C olon polyps - K63.5 5 . D iverticulosis of large intestine without perforation or abscess without bleeding - K57.30 Plan: * Procedure Codes: 4 5385 LESION REMOVAL [id number] COLONOSCOPY AND BIOPSY, Modifiers: 59 Billing Information: * Procedure Codes: 31078 LESION REMOVAL COLONOSCOPY. 09187 COLONOSCOPY AND BIOPSY. Modifiers: 59 * The named appointment provid er may or may not be the originator of this progress note, and it is not deemed complete until electronically signed by the appointment provider. Sign off status: Pending * Provider: Alexandria Ray MD Date: 0 07/19/2024 Generated for Mega de león/Be/Gregoritting on: 1 08:59 AM EST
--- OUTSIDE RECORDS SUMMARY | 2025-05-22 09:01 | XMS_ITS | Clinical Summary ---
Author Organization [facility] Address [address] [place] [address] Phone Care Team Providers Care Lottery Sales Clerk Name Role Phone Jay Cavazos MD Primary Care Provider [phone] Social History Tobacco Use Types Packs/Day Years [...] topic Medical Devices Not on file Insurance [facility] [address] [place] [address] Address: [address] [address] Care Teams Lottery Sales Clerk Relationship Specialty Start Date End Date Jay Cavazos MD [address] [place] [address] [address] [place] [address] PCP - General Internal Medicine 07/17/19 Additional Source Comments The information contained in this document represents components of the legal health record. It is not the complete legal health record.[facility]
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
--- OUTSIDE RECORDS SUMMARY | 2025-05-22 09:01 | XMS_ITS | Data Portability ---
Author Organization [facility] Address [address] [address] Care Team Providers Care Rn Manager Name Role Phone JOSEPH ZENG Primary Care Provider [phone] Assessment Encounter Date Assessment Date Assessment LastModified [...] booked for the same. He needs a medical driver on the day of the procedure. I also recommend a neurosurgical evaluation with Dr. Felix Hagen. He had tachycardia with a heart rate of 154 and high blood pressure of 160/128. His will take him to [facility]. I have called [facility] and given transfer. [email or web address] Not [...] booked for the same. He needs a medical driver on the day of the procedure. He is on Eliquis and needs to stop for three days prior to the injection per anticoagulation protocol. I have left a message with his line assembler aircraft, Dr. Mckeon. [email or web address] Not available 07/28/2018 16:09:50 [...] MRI, lumbar spine, w/o contrast 2017 018 [facility] ([facility]), [address] [facility], [place], [address], 8 10:04:55 Medication Orders None recorded. Patient TargetsNo targets recorded. Patient Instructions Encounter Date Encounter Id Patient Instructions Last Modified By Organization Details Last Modified Time 03/23/2018 [id number] He was advised against bed rest lasting longer than four days and to continue activities as tolerated. Benefits of smoking cessation were discussed with him. [email or web address] Not available 03/29/2018 09:42:05 04/07/2018 [id number] He was advised against bed rest lasting longer than four days and to continue activities as tolerated. Benefits of smoking cessation were discussed with him. [email or web address] Not available 04/07/2018 15:07:01 07/27/2018 [id number] He was advised against bed rest lasting longer than four days and to continue activities as tolerated. Benefits of smoking cessation were discussed with him. [email or web address] Not available 07/28/2018 13:00:52 08/09/2018 [id number] He was advised against bed rest lasting longer than four days and to continue activities as tolerated. Benefits of smoking cessation were discussed with him. [email or web address] Not available 08/10/2018 08:57:13 10/06/2018 [id number] He was advised against bed rest lasting [...] w/o contr ast [facility] Access ion Number : [id number] Patien t Name : Andrew Durant Medica l Record Number : [id number] Date of : 1959 Date of Exam : 2017 Referr ing Physic serenity : [facility] [address] [place] [address] Exam : MR - LUMBAR SPINE (C-) CPT 51147 - Room Descri ption : [facility] Verio 3.0T Techni que : Sag T1 [...] mposed new small centra l protru alicia. 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 [facility] ([facility]) [address] [facility] [place], [address], 04/07/2018 14:49:14 Result Notes Documentation Provider Name and Address Organization Details Recorded Time Mri, Lumbar Spine, W/o Contrast : [facility] Accession Number : [id number] Patient Name : Andrew Courtney Date of : 1960 Date of Exam : 04/01/2018 Referring Physician : [facility] [address] [place] [address] Exam : MR - LUMBAR SPINE (C-) CPT 73797 - Room Description : [facility] 3.0T Technique : Sag T1 FLAIR, Sag [...] on file) 04/04/2018 Tila Salmeron MD [address] , [address], [place], [address], [place] [facility] 04/07/2018 14:45:57 Problems Name Problem SNOMED Code Status Onset Date Resolution Date Notes Provider Name and Address Organization Details Recorded Time Lumbosacral radiculitis 45868938 Active Tila rand MD [address] , [address], [place], [address], [place] [facility] 6 14:05:15 Pain of hip region 79199328 Active Tila rand MD [address] , [address], [place], [address], [place] [facility] 6 14:05:15 Displacement of lumbar intervertebral disc without myelopathy 68142777 Active Tila rand MD [address] , [address], [place], [address], [place] [facility] 6 14:05:15 Problem Notes None recorded. Procedures Surgical History Date Name Laterality Status Provider Name and Address Organization Details Recorded Time 08/10/19 19 Lumbar Epidural steroid injection under fluoroscopic guidance completed Tila Salmeron MD [address] , [address], [place], [address], [place] [facility] 08/10/2018 08:58:14 02/02/20 18 Lumbar Epidural steroid injection under fluoroscopic guidance completed Tila Salmeron MD [address] , [address], [place], [address], [place] [facility] 02/01/2018 14:27:26 09/08/19 18 Lumbar epidural steroid injection with surface anatomy completed Tila Salmeron MD [address] , [address], [place], [address], [place] [facility] 09/08/2017 10:23:39 09/09/19 17 Lumbar Epidural steroid injection under fluoroscopic guidance completed Tila Salmeron MD [address] , [address], [place], [address], [place] [facility] 09/09/2016 15:00:25 12/10/19 16 Lumbar Epidural steroid injection under fluoroscopic guidance completed Tila Salmeron MD [address] , [address], [place], [address], [place] [facility] 12/10/2015 14:05:15 06/18/19 16 Lumbar Epidural steroid injection under fluoroscopic guidance completed Tila Salmeron MD [address] , [address], [place], [address], [place] [facility] 06/18/2015 14:27:13 11/07/19 15 Lumbar Epidural steroid injection under fluoroscopic guidance completed Tila Salmeron MD [address] , [address], [place], [address], [place] [facility] 11/07/2014 09:24:04 01/24/20 14 Lumbar Epidural steroid injection under fluoroscopic guidance completed Tila Salmeron MD [address] , [address], [place], [address], [place] [facility] 01/24/2014 15:55:24 [...] [email or web address] is Not available Not available 12/07/2013 [id number] 7 RxNorm Roz cabral [place] [...] Not Available Not Available Not Available Afluria 8714-2799 45 mcg (15 mcg x 3)/0.5 mL intramuscul ar suspension TO BE ADMINISTE RED BY PHARMACIS T FOR IMMUNIZAT ION active Not Available Not Available No t Available Fluvirin 6087-9982 45 mcg (15 mcg x 3)/0.5 mL intramuscul ar suspension active Not Available Not Available N ot Available Fluvirin 45 mcg (15 mcg x 3)/0.5 mL intramuscul ar suspension ADM 0.5ML IM UTD 09/08 completed Not Available Not Available Not Available Vitals Date Recorded Body height Heart rate Oxygen saturation Systolic And Diastolic Provider Name and Address Organization Details Last Updated DateTime 07/27/2018 171.45 cm 70 /min 98 % 130/91 mm[Hg] Roz Cortez MA [facility] 07/27/2018 14:36:39 Date Recorded Body height Heart rate Oxygen saturation Systolic And Diastolic Provider Name and Address Organization Details Last Updated DateTime 08/09/2018 171.45 cm 78 /min 97 % 133/93 mm[Hg] Roz Cortez [facility] 08/09/2018 14:12:31 Date Recorded Body height Heart rate Oxygen saturation Body mass index (BMI) Body weight Systolic And Diastolic Provider Name and Address Organization Details Last Updated DateTime 9 171.45 cm 89 /min 97 % 27.8 kg/m2 68514.6 3 g 125/89 mm[Hg] Roz Cortez [place] [facility] 9 15:38:38 Date Recorded Body height Heart rate Oxygen saturation Systolic And Diastolic Provider Name and Address Organization Details Last Updated DateTime 03/23/2018 171.45 cm 75 /min 96 % 122/98 mm[Hg] Roz Cortez [place] [facility] 03/23/2018 13:27:12 Date Recorded Body height Oxygen saturation Heart rate Systolic And Diastolic Systolic And Diastolic Provider Name and Address Organization Details Last Updated DateTime 04/07/2018 171.45 cm 98 % 154 /min 144/115 mm[Hg] 165/129 mm[Hg] Roz Cortez [place] [facility] 8 14:44:14 Date Recorded Pain severity - 0-10 verbal numeric rating [Score] - Reported Provider Name and Address Organization Details Last Updated DateTime 04/07/2018 5 Not Available [facility] 8 05:00:34 Social History Question Answer Notes LastModified by Tyros Details LastModified Time Tobacco Smoking Status Current Every Day Smoker Not Available [facility] 03/08/2020 03:16:10 Education 12 [email or web address] Information no t available 12/07/2013 Live Alone Or With Others? With Others And Daughter [email or web address] Information not available 12/07/2013 Marital Status [email or web address] Informatio n not available 12/07/2013 What Was The Date Of Your Most Recent Tobacco Screening? 10/07/2018 [id number] Information not available 03/08/2020 How Much Tobacco Do You Smoke? 1.5 PPD [id number] Information not available 03/08/2020 How Many Years Have You Smoked Tobacco? 35 [id number] Information not available 03/08/2020 Sex: Unknown Functional Status Question Answer Note LastModified by Tyros Details LastModified Time What is your level of alcohol consumption? 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 [employer] [email or web address] Information not available 12/07/2013 Mental Status None recorded. Family History Relationship Description Onset Age of this Age Resolved Age Notes LastModified by Organization Details LastModified Time Brother Malignant neoplastic disease Colon [email or web address] Not available 11/21 14:03:33 Medical History Condition Response Depression Y Anxiety Disorder Y Asthma Y Bipolar Disorder Y Past Encounters Encounter ID Performer Location Encounter Start Date Encounter Closed Date Diagnosis/Indication Diagnosis SNOMED-CT Code Diagnosis ICD10 Code Diagnosis IMO Codes Diagnosis Note [id number] Tila Salmeron MD PAIN OFFICE [address] [facility] [place] [address] 12/07/2013 14:18:36 12/08/2013 09:42:04 Displacement of lumbar intervertebral disc without myelopathy 69646061 Pain of hip region 14531993 Lumbosacra l radiculitis 21284856 [id number] Tila Salmeron MD PAIN OFFICE [address] [facility] [place] [address] 01/04/2014 14:55:02 01/05/2014 08:07:22 Displacement of lumbar intervertebral disc without myelopathy 66667059 Pain of hip region 63863799 Lumbosacra l radiculitis 89260426 [id number] Tila Salmeron MD PAIN OFFICE [email or web address] [facility] [place] [address] 01/23/2014 10:44:41 01/24/2014 15:57:13 Displacement of lumbar intervertebral disc without myelopathy 29265875 Pain of hip region 50877673 Lumbosacra l radiculitis 86034895 [id number] Tila Salmeron MD PAIN OFFICE [address] [facility] [place] [address] 02/28/2014 14:56:37 02/28/2014 15:46:39 Displacement of lumbar intervertebral disc without myelopathy 40407355 Pain of hip region 36351221 Lumbosacra l radiculitis 32594471 [id number] Tila Salmeron MD PAIN OFFICE [address] [facility] [place] [address] 11/06/2014 15:02:00 11/07/2014 11:51:38 Displacement of lumbar intervertebral disc without myelopathy 57828951 Pain of hip region 08980202 Lumbosacra l radiculitis 97456095 01002 Tila Salmeron MD PAIN OFFICE [address] [facility] [place] [address] 06/18/2015 13:48:50 06/19/2015 09:11:47 Displacement of lumbar intervertebral disc without myelopathy 14147144 M51.26 Pain of hip region 22582 002 M25.552 Lumbosacra l radiculitis 60015625 M54.17 [id number] Tila Salmeron MD PAIN OFFICE [address] [facility] [place] [address] 12/10/2015 13:29:42 12/11/2015 09:21:29 Lumbosacral radiculitis 84521604 M54.17 Displaceme nt of lumbar intervertebral disc without myelopathy 25480719 M51.26 Pain of hip region 81915 002 M25.552 [id number] Tila Salmeron MD PAIN OFFICE [address] [facility] [place] [address] 09/08/2016 11:20:22 09/09/2016 15:12:37 Lumbosacral radiculitis 43337137 M54.17 Displaceme nt of lumbar intervertebral disc without myelopathy 61473046 M51.26 Pain of hip region 69402 002 M25.552 [id number] Tila Salmeron MD PAIN OFFICE [address] [facility] [place] [address] 09/03/2017 08:56:07 09/03/2017 09:48:53 Lumbosacral radiculitis 05938754 M54.17 Displaceme nt of lumbar intervertebral disc without myelopathy 16216749 M51.26 Pain of hip region 15501 002 M25.552 [id number] Tila Salmeron MD PAIN OFFICE [address] [facility] [place] [address] 09/07/2017 15:09:53 09/08/2017 10:25:46 Lumbosacral radiculitis 44086907 M54.17 Displaceme nt of lumbar intervertebral disc without myelopathy 58518762 M51.26 Pain of hip region 16714 002 M25.552 [id number] Tila Salmeron MD [facility] [address] [place] [address] 02/01/2018 13:56:59 02/02/2018 08:24:42 Lumbosacral radiculitis 26764184 M54.17 Displaceme nt of lumbar intervertebral disc without myelopathy 89989309 M51.26 Pain of hip region 90836 002 M25.552 [id number] Tila Salmeron MD [facility] [address] [place] [address] 03/23/2018 13:16:30 03/29/2018 10:00:25 Displacement of lumbar intervertebral disc without myelopathy 05934765 M51.26 Pain of hip region 50882 002 M25.552 Lumbosacra l radiculitis 08832937 M54.17 [id number] Tila Salmeron MD [facility] [address] [place] [address] 04/07/2018 12:45:54 04/07/2018 15:11:59 Displacement of lumbar intervertebral disc without myelopathy 42390798 M51.26 Pain of hip region 24039 002 M25.552 Lumbosacra l radiculitis 24886553 M54.17 [id number] Tila Salmeron MD [facility] [address] [place] [address] 07/27/2018 14:25:10 07/28/2018 13:12:53 Displacement of lumbar intervertebral disc without myelopathy 57679159 M51.26 Pain of hip region 23309 002 M25.552 Lumbosacra l radiculitis 75191138 M54.17 [id number] Tila Salmeron MD [facility] [address] [place] [address] 08/09/2018 13:52:50 08/10/2018 09:01:56 Lumbosacral radiculitis 20908827 M54.17 Displaceme nt of lumbar intervertebral disc without myelopathy 75430306 M51.26 Pain of hip region 29042 002 M25.552 [id number] Tila Salmeron MD PAIN OFFICE [address] [facility] [place] [address] 10/06/2018 15:30:06 10/07/2018 08:48:48 Lumbosacral radiculitis 25784692 M54.17 Displaceme nt of lumbar intervertebral disc without myelopathy 46639757 M51.26 Pain of hip region 54700 002 M25.552 Health Concerns Section Related Observation LastModified by Organization Detai ls LastModified Time None Recorded Concern Status LastModified by Organization Details LastModified Time None Recorded Advance Directives Directive None Recorded Payers Insurance Date Sequence Insurance Name Policy Number Policy Pedroza Covered Member ID Pedroza Member ID Guarantor Name 10/03/2018 1 [facility] [id number] 01 Andrew Courtney [id number] Andrew Courtney Notes Date Note Type Note [...] 4 years ago. Tila Salmeron MD [address] [facility] , [address], [place], [address], [facility] 04/04/2018 08:39:37 04/07/2018 text/html He [...] stenosis and has seen Dr. Brian at [place] and has an appointment in April 2018. Tila Salmeron MD [address] [facility] , [address], [place], [address], [place] [facility] 04/09/2018 13:13:14 07/27/2018 text/html He is here for a follow up. He is complaining of low back pain radiating into right lower extremity. He has been admitted in the hospital with atrial flutter and is on Eliquis . He states he is seeing Dr. Stuart Salmeron MD [address] [facility] , [address], [place], [address], [place] [facility] 07/29/2018 10:06:44 08/09/2018 text/html He is here for a lumbar epidural steroid injection under fluoroscopic guidance. He is on Eliquis and has stopped for three days for the procedure. Tila Salmeron MD [address] [facility] , [address], [place], [address], [place] [facility] 08/11/2018 09:34:00 [...] is in afib. Tila Salmeron MD [address] [facility] , [address], [place], [address], [place] [facility] 10/10/2018 13:27:34
--- OUTSIDE RECORDS SUMMARY | 2025-05-22 09:01 | XMS_ITS | Patient Health Record ---
Author Organization [facility] Address [address] [facility] [place] [address] Care Team Providers Care Medical Driver Name Role Phone Dirk AMOS, Jay Primary Care Provider Froilan Raymond Unavailable [phone] Reason For Referral No Information Medications Medication SIG (Take, Route, Frequency, Duration) Notes Start Date End Date Status Cardizem CD 360 MG 1 capsule Orally Onc e a day; Duration: 30 day(s) Active Lisinopril 10 MG 1 tablet Orally Once a day; Duration: 30 day(s) Active Ciclopirox Olamine 0.77 % 1 application to affected area Externally to feet Twice a day; Duration: 30 days Active Finasteride 5 MG 1 tablet Orally Once a day; Duration: 30 day(s) Active Meloxicam 15 MG 1 tablet Orally Once a day; Duration: 30 day(s) Active ZyPREXA 5 MG 1 tablet Orally Once a day; Duration: 30 day(s) Not-Brennon ing Depakote 125 MG 1 tablet Orally Twic e a day; Duration: 30 day(s) Not-Brennon ing traMADol HCl 50 MG 1 tablet as needed Orally every 8 hrs, prn Not-Taki ng OLANZapine 10 MG 1 tablet Orally Once a day; Duration: 30 day(s) Active Gabapentin 400 MG as directed Orally Active Divalproex Sodium 500 MG 1 tablet Orally Twice a day; Duration: 30 day(s) Active Eliquis 5 MG as directed Orally Active Social History Tobacco Use: Social History Observation Description Date Details (start date - stop date) Current Smoker NA - NA Tobacco Use/Smoking Question Answer Notes Are you a: current smoker Alcohol Screen Question Answer Notes Did you have a drink containing alcohol in the p ast year? Yes Points 0 Interpretation Negative Problems No Known Problems Plan Of Treatment Pending Test Test Name Order Date X ray : Foot, right 3V 04/04/2013 24211-Rbof Destruction, 1-14 04/04/2013 27987-Mwljfzfu Plate 04/04/2013 53130- Debride <25 sq cm 04/04/2013 Insurance Providers Payer Name Payer Address Payer Phone Subscriber Number Group Number Insured Name Patient Relationship to Insured Coverage Start Date Coverage End Date [facility] [address] [facility] JACE rcowder [id number] Andrew Courtney Self - patient is the insured Medical (General) History Medical History History ICD Code chicken pox back, hip, knee pain anxiety Arthritis high blood pressure keloids psychiatric disorder Measles Mumps Surgical History Surgery Date(Month/Year) skin graft 1961
[2025-05-22 11:25] LABS: Alanine Aminotransferase 22 U/L (0-40); Albumin Level 4.1 g/dL (3.5-5.0); Alkaline Phosphatase 50 U/L (39-117); Anion Gap 11 (12-20); Aspartate Amino Transferase 28 U/L (5-37); Blood Urea Nitrogen 17 mg/dL (9-16); Calcium 9.0 mg/dL (8.4-10.2); Carbon Dioxide 28 mmol/L (22-29); Chloride 101 mmol/L (96-108); Cholesterol 152 mg/dL (<200); Estimated Glomerular Filt Rate > 60; HDL Cholesterol 69 mg/dL (>40); Potassium 4.7 mmol/L (3.3-5.1); Sodium 135 mmol/L (135-145); Total Protein 6.6 g/dL (6.5-8.0); Triglycerides 46 mg/dL (<150)
== END 2025-05-22 07:21 ==
LOC: HO.HMGCLDS 07:20
PROVIDERS: Nurse Practitioner Psychiatric/Mental Health; PCP Internal Medicine; Visit Provider Psychiatry & Neurology Psychiatry
DX: Z13.228 Encounter for screening for other metabolic disorders (principal); Z13.6 Encounter for screening for cardiovascular disorders
CPT/HCPCS: 36415; 80053; 80061; 80164